=== PATIENT | female | born 1955 | race Caucasian/White ===

== ENCOUNTER → 2017-03-24 | Outpatient (REF) | payer OTHER ==
[~2017-03-24] MED LIST: ASPI325T OR; DYAZ37.5 OR; IBUPPOW25 PO; LISI20TA5 OR; LOPR50TA OR; NITR0.4S SL; PRIL40CA OR; VENL37.5 OR; VITAMIN B 12 PO; VITAMIN D PO; ZOCO40TA OR
[2017-03-24 13:04] LABS: BASO % 0.7 % (0.0-1.0); EOS # 0.5 K/mm3 (0.0-0.50); EOS % 7.8 % (0.0-3.0); LARGE UNSTAINED CELL # 0.2 K/mm3 (0.0-0.4); LARGE UNSTAINED CELL % 3.4 % (0.0-4.0); LYMPH # 1.7 K/mm3 (1.5-4.5); LYMPH % 27.3 % (24.0-44.0); MEAN CORPUSCULAR HGB CONC 31.6 g/dl (32.0-36.5); MEAN CORPUSCULAR VOLUME 91.8 fl (80.0-96.0); MONO # 0.5 K/mm3 (0.0-0.8); MONO % 7.4 % (0.0-5.0); NEUTROPHILS # 3.3 K/mm3 (1.8-7.7); NEUTROPHILS % 53.4 % (36.0-66.0); PLATELET COUNT, AUTOMATED 377 k/mm3 (150-450); RED CELL DISTRIBUTION WIDTH 12.9 % (11.5-14.5); WHITE BLOOD COUNT 6.2 K/mm3 (4.0-10.0)
[2017-03-24 13:24] LABS: ALBUMIN 3.5 GM/DL (3.2-5.2); ALBUMIN/GLOBULIN RATIO 0.97 (1.00-1.93); BILIRUBIN,TOTAL 0.4 MG/DL (0.2-1.0); CALCIUM LEVEL 8.9 MG/DL (8.8-10.2); CREATININE FOR GFR 1.28 MG/DL (0.55-1.02); GLOMERULAR FILTRATION RATE 44.7 (>45); POTASSIUM SERUM 4.2 MEQ/L (3.5-5.1); TOTAL PROTEIN 7.1 GM/DL (6.4-8.2)
== END ==
LOC: M LABDRAW1 11:45
PROVIDERS: ATTEND Family Medicine
DX: I10 Essential (primary) hypertension (principal); J44.9 Chronic obstructive pulmonary disease, unspecified; E66.09 Other obesity due to excess calories; E78.5 Hyperlipidemia, unspecified

== ENCOUNTER → 2017-05-14 | Outpatient (CLI) | payer OTHER ==
[~2017-05-14] MED LIST changes: +ASPI325T PO; +ATOR40TA75; +ATOR40TA75 PO; +CALC600T31 PO; +FAMO1TAB11 PO; +FURO40TA2 PO; +IBUP1TAB7 PO; +ISOS60TA2 PO; +LISI-538 PO; +METF-414 PO; +METF500T4; +METO50TA7 PO; +NITR0.2D TD; +NITR2OI TOP; +OMEP20CA3 PO; +VENL37.52 PO; +VITA10002 PO; +VITA10006 PO; +VITA100066 PO
--- NOTE | 2017-05-20 16:45 | SLEEPCENT ---
DATE OF PROCEDURE: 05/14/2017 REFERRING PHYSICIAN: Renuka Padgett Nocturnal polysomnography was performed for the titration of pressure therapy in this patient with a clinical diagnosis of obstructive sleep apnea syndrome confirmed by home testing, which revealed a respiratory event index of 40. For testing, the patient was fit with a ResMed AirFit T10 Nasal Pillow device of medium size, 4 cm of water pressure were applied to the circuit and the lights were extinguished. 7 hours and 49 minutes of data were reviewed. There were 322 minutes of sleep identified. Sleep latency was prolonged at 101 minutes. Rapid eye movement (REM) latency was prolonged at 180 minutes. Sleep architecture improved late in the study with optimal pressure therapy. Overall sleep efficiency was 70%. The patient's EKG showed a sinus rhythm with an average heart rate of 76 beats per minute. EEG showed fairly normal waveforms for awake and sleep. Respiratory events were best palliated with CPAP at a pressure +10. Limb activity noted early in the study persisted despite optimal pressure therapy titration. There were near continuous events with a limb movement arousal index of 12.1. IMPRESSION: Obstructive sleep apnea syndrome (G47.33). Periodic limb movement disorder (G47.61). Limb movement arousal index 12.1. RECOMMENDATION: Nightly use of pressure therapy at 10 cm of water should be sufficient to address the patient's respiratory events. Interventions to reduce the frequency of arousals from limb activity may also be helpful to optimize efficiency of sleep.
== END ==
LOC: M SLEEP 20:07
PROVIDERS: ATTEND Nurse Practitioner Adult Health
DX: G47.33 Obstructive sleep apnea (adult) (pediatric) (principal); G47.61 Periodic limb movement disorder

== ENCOUNTER 2017-06-05 13:21 | Observation (INO) | payer OTHER ==
[~2017-06-05] VITALS: Ht 167.6 cm; Wt 122.6 kg
[~2017-06-05 13:21] MED LIST changes: -ASPI325T PO; -ATOR40TA75; -ATOR40TA75 PO; -CALC600T31 PO; -FAMO1TAB11 PO; -FURO40TA2 PO; -IBUP1TAB7 PO; -ISOS60TA2 PO; -LISI-538 PO; -METF-414 PO; -METF500T4; -METO50TA7 PO; -NITR0.2D TD; -NITR2OI TOP; -OMEP20CA3 PO; -VENL37.52 PO; -VITA10002 PO; -VITA10006 PO; -VITA100066 PO
[2017-06-05] MEDS ORDERED: METF500T4 (13:31)
[2017-06-05] MEDS ORDERED: ATOR40TA75 (13:31)
[2017-06-05] MEDS ORDERED: VITA100066 PO ×2 (13:31→18:35)
[2017-06-05] MEDS ORDERED: NITR2OI TOP (13:33)
[2017-06-05] MEDS ORDERED: NITR0.2D TD ×2 (13:33→18:41)
[2017-06-05] MEDS ORDERED: NS 1,000 ML IV SCH ×2 (13:48→18:27)
[2017-06-05] MEDS ORDERED: MORPHINE 4 MG/ML 1ML SYRINGE IV ONE (14:00)
[2017-06-05] MEDS ORDERED: ONDANSETRON 4MG/2ML VIAL (J2405) IV ONE (14:00)
[2017-06-05] MEDS ORDERED: MORPHINE 2 MG/ML 1ML SYRINGE IV ONE (14:00)
[2017-06-05 14:01] LABS: BASO # 0.1 K/mm3 (0.0-0.2); EOS # 0.5 K/mm3 (0.0-0.50); EOS % 7.1 % (0.0-3.0); LARGE UNSTAINED CELL # 0.1 K/mm3 (0.0-0.4); LARGE UNSTAINED CELL % 1.7 % (0.0-4.0); LYMPH # 1.8 K/mm3 (1.5-4.5); LYMPH % 24.3 % (24.0-44.0); MEAN CORPUSCULAR HEMOGLOBIN 28.6 pg (27.0-33.0); MEAN CORPUSCULAR HGB CONC 32.4 g/dl (32.0-36.5); MEAN CORPUSCULAR VOLUME 88.5 fl (80.0-96.0); MONO # 0.4 K/mm3 (0.0-0.8); MONO % 5.9 % (0.0-5.0); NEUTROPHILS # 4.1 K/mm3 (1.8-7.7); NEUTROPHILS % 59.9 % (36.0-66.0); PLATELET COUNT, AUTOMATED 318 k/mm3 (150-450); RED CELL DISTRIBUTION WIDTH 13.4 % (11.5-14.5); WHITE BLOOD COUNT 6.8 K/mm3 (4.0-10.0)
[2017-06-05 14:07] LABS: INR 0.91
--- NOTE | 2017-06-05 14:19 | REP ---
Clinical: Chest pain . Comparison: 01/30/2013 . Findings: The mediastinum and cardiac silhouette are stable and within normal limits for portable technique. The lung lemons are clear without acute consolidation, effusion, or pneumothorax. Skeletal structures are intact. Impression: No acute cardiopulmonary process appreciated. Signed by Brendan Camara MD 06/05/2017 02:11 P
[2017-06-05 14:20] LABS: ALBUMIN 3.7 GM/DL (3.2-5.2); ALKALINE PHOSPHATASE 92 U/L (45-117); ALT/SGPT 31 U/L (12-78); ANION GAP 8 MEQ/L (8-16); AST/SGOT 21 U/L (15-37); BILIRUBIN,DIRECT 0.1 MG/DL (0.0-0.2); BILIRUBIN,TOTAL 0.5 MG/DL (0.2-1.0); BLOOD UREA NITROGEN 16 MG/DL (7-18); CALCIUM LEVEL 9.3 MG/DL (8.8-10.2); CARBON DIOXIDE LEVEL 27 MEQ/L (21-32); CHLORIDE LEVEL 106 MEQ/L (98-107); FREE T4 0.78 NG/DL (0.76-1.46); GLOMERULAR FILTRATION RATE 37.2 (>45); GLUCOSE, FASTING 158 MG/DL (80-110); POTASSIUM SERUM 3.9 MEQ/L (3.5-5.1); SODIUM LEVEL 141 MEQ/L (136-145); TOTAL PROTEIN 7.8 GM/DL (6.4-8.2)
[2017-06-05] MEDS ORDERED: ISOVUE-370 76% 100ML VIAL (Q9967) As Ordered ONE (14:49)
--- NOTE | 2017-06-05 15:32 | REP ---
Clinical: Acute chest pain. Technique: Axial contrast enhanced images from the thoracic inlet to the upper abdomen using 100 ml Isovue 370 intravenous contrast material with coronal and sagittal re-formations. Findings: Satisfactory enhancement of the pulmonary vasculature is achieved and no filling defects are identified to suggest pulmonary embolus. Thoracic aorta is normal caliber without aneurysm or dissection. Atherosclerotic changes to the thoracic aorta and coronary arteries noted. Heart and pericardium are otherwise normal. Bilateral lung lemons are well aerated and clear without acute pulmonary parenchymal consolidation or nodule/mass. Mild posterior basilar dependent changes are suggested. No pleural effusion/reaction. No pneumothorax. No adenopathy. Moderate hiatal hernia. Impression: No evidence for pulmonary embolus. Moderate hiatal hernia. No acute pleuroparenchymal or mediastinal process. Signed by Brendan Camara MD 06/05/2017 03:23 P
[2017-06-05] MEDS ORDERED: ONDANSETRON 4 MG TAB (S0181) PO PRN (18:30)
[2017-06-05] MEDS ORDERED: ACETAMINOPHEN TAB 650MG DOSE (2X325MG) PO PRN (18:30)
[2017-06-05] MEDS ORDERED: ASPI325T PO (18:35)
[2017-06-05] MEDS ORDERED: METF-414 PO (18:35)
[2017-06-05] MEDS ORDERED: ATOR40TA75 PO (18:35)
[2017-06-05] MEDS ORDERED: LISI-538 PO (18:35)
[2017-06-05] MEDS ORDERED: VENL37.52 PO (18:41)
[2017-06-05] MEDS ORDERED: FAMO1TAB11 PO (18:41)
[2017-06-05] MEDS ORDERED: VITA10002 PO (18:41)
[2017-06-05] MEDS ORDERED: IBUP1TAB7 PO (18:41)
[2017-06-05] MEDS ORDERED: FURO40TA2 PO (18:41)
[2017-06-05] MEDS ORDERED: ISOS60TA2 PO (18:41)
[2017-06-05] MEDS ORDERED: OMEP20CA3 PO (18:41)
[2017-06-05] MEDS ORDERED: CALC600T31 PO (18:41)
[2017-06-05] MEDS ORDERED: VITA10006 PO (18:41)
[2017-06-05] MEDS ORDERED: METO50TA7 PO (18:41)
[2017-06-05] MEDS ORDERED: GLUCAGON FOR INJ 1 MG VIAL (J1610) SC PRN (19:00)
[2017-06-05] MEDS ORDERED: NITROGLYCERIN 0.2 MG/HR PATCH TD PRN (19:00)
[2017-06-05] MEDS ORDERED: GLUCOSE 4 GM CHEW TABLET PO PRN (19:00)
[2017-06-05] MEDS ORDERED: DEXTROSE 50% 50 ML SYRINGE IV PRN (19:00)
--- NOTE | 2017-06-05 19:42 | ECGEPIP ---
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
--- NOTE | 2017-06-05 19:44 | ECGEPIP ---
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
--- NOTE | 2017-06-05 19:45 | HPEPDOC ---
General Date of Admission 06/05/17 Primary Care Physician: NAYE MIMS DO Attending Physician: NIRMALA MEDELLIN DO Chief Complaint The patient is a 62-year-old female admitted with a reason for visit of Chest Pain. History of Present Illness 62-year-old female brought into ED by [id number] after experiencing chest pain, nausea, and diaphoresis at 10 AM this morning. Jediea-[id number]-stp also present in room. PMH significant for CAD with 8 stents placed in 2011, HTN, HLD, questionable CHF, JESSE. Patient states she was walking, shopping at the time, and suddenly felt achy pain and pressure in the middle of her chest radiating to her left shoulder, rated 7/10. Patient took 1 nitroglycerin patch, and continued shopping. After eating around 11:30 AM, pain returned and patient applied a second nitroglycerin patch. Patient states this is similar episode to what she had in the past around 2011 when she was required to have stents placed. Patient describes current pain as intermittent, on and off in 15-minute intervals. No aggravating or alleviating factors besides nitroglycerin, and morphine given in the ED. Patient denies any recent travel, sick contacts, or changes in lifestyle. Patient recently started new diabetes medication last week -she is unsure of the name. Cardiac workup in the ED was negative based on EKG and cardiac markers. Hospitalist team was consulted because patient became short of breath, dizzy, and hypotensive (~90s/50s) while walking from bed to the bathroom. Patient recently took off her nitroglycerin patches and is no longer dizzy, lightheaded , or hypotensive. Home Medications Scheduled Ascorbic Acid (Vitamin C) 1,000 Mg Tab, 1,000 MG PO DAILY, (Reported) Aspirin (Aspirin) 325 Mg Tab, 325 MG PO DAILY, (Reported) Atorvastatin Calcium (Atorvastatin Calcium) 40 Mg Tab, 40 MG PO QHS, (Reported) Calcium (Calcium) 600 Mg Tab, 600 MG PO DAILY, (Reported) Cholecalciferol (Vitamin D) 1,000 Unit Tab, 1,000 UNIT PO BID, (Reported) Cyanocobalamin (Vitamin B-12) 1,000 Mcg Tab, 1,000 MCG PO DAILY, (Reported) Famotidine (Famotidine) 20 Mg Tab, 20 MG PO TID, (Reported) Isosorbide Mononitrate (Isosorbide Mononitrate ER) 60 Mg Tab, 60 MG PO DAILY, ( Reported) Metoprolol Tartrate (Metoprolol Tartrate) 50 Mg Tab, 50 MG PO BID, (Reported) Omeprazole (Omeprazole) 20 Mg Cap, 40 MG PO BID, (Reported) Venlafaxine HCl (Venlafaxine HCl ER) 37.5 Mg Cap, 75 MG PO BID, (Reported) Scheduled PRN Ibuprofen (Ibuprofen) 800 Mg Tab, 800 MG PO TID PRN for PAIN, (Reported) Allergies Coded Allergies: No Known Allergies (Verified , 05/29/12) Past Medical History Medical History Coronary artery disease-8 stents 2011 Diabetes Hypertension Dyslipidemia Questionable CHF Hiatal hernia GERD JESSE, recently diagnosed Surgical History 8 stents, 2011 Appendectomy at age 14 Arthroscopy left knee Family History Father: Diabetes, CAD, oral cancer from chewing tobacco Mother: Parkinson's Brother: Brain cancer Brother: Testicular cancer Sister: Lung cancer Cousins: Muscular dystrophy Paternal uncle: AAA Maternal aunt: Diabetes Social History Smoking: Quit 6 years ago, smoked for 32 years, 1 ppd Alcohol: Seldom Substances: Denies Lives at home with 4 dogs. 2 yrs Worked as [employer], retired 2011 Review of Symptoms Constitutional: Denies: Chills, Fever, Night Sweats, Fatigue, Weight Loss Eyes: Denies: Pain, Vision change ENT: Reports: Head Aches, Denies: Dysphagia Pulmonary: Reports: Dyspnea, Denies: Cough Cardiovascular: Reports: Chest Pain (mid chest, radiating to left shoulder. Intermittent pain in 10-15 min intervals.), Lt Headedness, Denies: Palpitations, Edema Gastrointestinal: Reports: Nausea, Denies: Vomiting, Abdominal Pain, Diarrhea, Constipation Musculoskeletal: Reports: Shoulder Pain Neurological: Denies: Weakness, Numbness, Incoordination, Change in speech, Confusion Psych: Reports: Mood Normal Physical Examination General Exam: Positive: Alert, Cooperative, No Acute Distress Eye Exam: Positive: PERRLA, Conjunctiva & lids normal, EOMI, Negative: Sclera icteric ENT Exam: Positive: Atraumatic, Mucous membr. moist/pink, Pharynx Normal, Tongue Midline Neck Exam: Positive: Supple, +2 carotid pulse wo bruit, Negative: JVD, Lymphadenopathy Chest Exam: Positive: Clear to auscultation, Normal air movement, Negative: Wheezing Heart Exam: Positive: Rate Normal, Regular Rhythm, Other (difficult to asses heart sounds due to body habitus) Abdomen Exam: Positive: Normal bowel sounds, Soft, Negative: Tenderness Extremity Exam: Positive: Normal pulses, Negative: Clubbing, Cyanosis, Edema, Tenderness, Swelling Skin Exam: Positive: Nl turgor and temperature Neuro Exam: Positive: Normal Speech, Normal Tone, Sensation Intact Psych Exam: Positive: Mental status NL, Mood NL, Memory Intact, Oriented x 3 Vital Signs Vital Signs Date Time Temp Pulse Resp B/P (MAP) Pulse Ox O2 Delivery O2 Flow Rate FiO2 06/05/17 18:15 117/57 (77) 06/05/17 18:01 85 94 06/05/17 16:46 16 06/05/17 13:22 97.3 Room Air Height (in): 66 Weight (kg): 119 BMI (kg): 42.4 Laboratory Data Labs 24H Laboratory Tests 2 06/05/17 13:50: White Blood Count 6.8, Red Blood Count 4.94, Hemoglobin 14.2, Hematocrit 43.7, Mean Corpuscular Volume 88.5, Mean Corpuscular Hemoglobin 28.6, Mean Corpuscular Hemoglobin Concent 32.4, Red Cell Distribution Width 13.4, Platelet Count 318, Neutrophils (%) (Auto) 59.9, Lymphocytes (%) (Auto) 24.3, Monocytes ( %) (Auto) 5.9H, Eosinophils (%) (Auto) 7.1H, Basophils (%) (Auto) 1.0, Neutrophils # (Auto) 4.1, Lymphocytes # (Auto) 1.8, Monocytes # (Auto) 0.4, Eosinophils # (Auto) 0.5, Basophils # (Auto) 0.1, Large Unclassified Cells % 1.7 , Large Unclassified Cells # 0.1, Prothrombin Time 12.3L, Prothromb Time International Ratio 0.91, Activated Partial Thromboplast Time 22.1L, Anion Gap 8 , Glomerular Filtration Rate 37.2L, Calcium Level 9.3, Aspartate Amino Transf ( AST/SGOT) 21, Alanine Aminotransferase (ALT/SGPT) 31, Alkaline Phosphatase 92, Total Bilirubin 0.5, Direct Bilirubin 0.1, Total Creatine Kinase 189, Creatine Kinase MB 2.8, Creatine Kinase MB Relative Index 1.48, Troponin I < 0.02, B- Type Natriuretic Peptide 22.9, Total Protein 7.8, Albumin 3.7, Albumin/Globulin Ratio 0.90L, Lipase 153, Thyroid Stimulating Hormone (TSH) 2.130, Free Thyroxine 0.78 06/05/17 15:59: Total Creatine Kinase 185, Creatine Kinase MB 2.2, Creatine Kinase MB Relative Index 1.18, Troponin I < 0.02 CBC/BMP Laboratory Tests 06/05/17 13:50 Red Blood Count 4.94, Mean Corpuscular Volume 88.5, Mean Corpuscular Hemoglobin 28.6, Mean Corpuscular Hemoglobin Concent 32.4, Red Cell Distribution Width 13.4 , Neutrophils (%) (Auto) 59.9, Lymphocytes (%) (Auto) 24.3, Monocytes (%) (Auto ) 5.9 H, Eosinophils (%) (Auto) 7.1 H, Basophils (%) (Auto) 1.0, Neutrophils # ( Auto) 4.1, Lymphocytes # (Auto) 1.8, Monocytes # (Auto) 0.4, Eosinophils # (Auto ) 0.5, Basophils # (Auto) 0.1 Assessment/Plan Chest Pain -MSK vs GERD vs PE vs TN -in ED: CXR neg for cardiopulmonary etiology. CT angiogram neg for PE. 2 EKGs non-concerning -echocardiogram. Last done in 2011 -serial cardiac enzymes -continue ASA, statin, BBlocker, Nitro -case discussed with Dr. Urbina CKD with mildly increased Creatinine -urinalysis, urine electrolytes -renal US -pt home meds on hold: Metformin, Furosemide, Lasix. Pt ingested contrast for imaging while in ED -1L fluids only. Avoid fluid overload Questionable history of CHF -strict I's/O's -daily weight Orthostatic Hypotension -gentle IV hydration -hold Lisinopril and Lasix -check orthostatic vitals q8h Diabetes -check A1C -Insulin Sliding Scale. Hold Metformin due to kidney injury. Dyslipidemia -lipid panel -continue home statin JESSE -JESSE Protocol GERD -continue home Pepcid, Prilosec DVT prophylaxis -SCD/CITLALY, and Heparin Dispo: admit for observation to Dr. Medellin's service Plan / VTE VTE Prophylaxis Ordered?: Yes GME ATTESTATION GME ATTESTATION My preceptor for this patient encounter was physically present in the building during the encounter and was fully available. As needed, all aspects of the patient interview, examination, medical decision making process, and medical care plan development were reviewed and approved by the preceptor. Preceptor is aware and concurs with the plan as stated in the body of this note and will attest to such by his/her cosignature. ATTENDING NOTE I have both independently examined this patient as well as reviewed the H&P. I have discussed in detail with the resident the findings and plan of treatment as documented in the residents note. I will continue to follow the patient and offer further guidance to the patients care as necessary during this hospital stay. KIRA Alfaro MD, DO Jun 05, 2017 19:44 MANINDER CHAVARRIA MD Jun 12, 2017 08:50
[2017-06-05] MEDS ORDERED: HumaLOG INSULIN (NovoLOG) PER UNIT SC SCH (21:00)
[2017-06-05] MEDS ORDERED: ATORVASTATIN 20 MG TAB PO SCH (21:00)
[2017-06-05 21:50] VITALS: BP 134/86
[2017-06-05] MEDS: FAMOTIDINE 20 MG TAB PO SCH (22:41)
[2017-06-05] MEDS: SENOKOT S TAB PO SCH (22:41)
[2017-06-05] MEDS: METOPROLOL TART 50 MG TAB PO SCH (22:41)
[2017-06-05] MEDS: OMEPRAZOLE 20 MG CAP PO SCH (22:41)
[2017-06-05] MEDS: VITAMIN D 1,000 INTERNATIONAL UNITS TABLET PO SCH (22:42)
[2017-06-05] MEDS: HEPARIN SOD (PORCINE) 5000 UNITS/ML VIAL SC SCH (22:42)
[2017-06-05] MEDS: VENLAFAXINE **XR** 37.5 MG CAPSULE PO SCH (23:15)
[2017-06-06 00:30] VITALS: BP 119/74
[2017-06-06 04:18] VITALS: BP_SYST 112; BP_SYST 132; BP_SYST 134; BP_DIAS 58; BP_DIAS 60; BP_DIAS 65
[2017-06-06 05:23] LABS: MEAN CORPUSCULAR HEMOGLOBIN 28.8 pg (27.0-33.0); MEAN CORPUSCULAR HGB CONC 32.4 g/dl (32.0-36.5); RED CELL DISTRIBUTION WIDTH 13.5 % (11.5-14.5)
[2017-06-06 05:44] LABS: ALBUMIN 3.1 GM/DL (3.2-5.2); ALBUMIN/GLOBULIN RATIO 0.86 (1.00-1.93); BILIRUBIN,TOTAL 0.2 MG/DL (0.2-1.0); CALCIUM LEVEL 8.7 MG/DL (8.8-10.2); CREATININE FOR GFR 1.29 MG/DL (0.55-1.02); GLOMERULAR FILTRATION RATE 44.3 (>45); POTASSIUM SERUM 4.1 MEQ/L (3.5-5.1); TOTAL PROTEIN 6.7 GM/DL (6.4-8.2)
[2017-06-06] MEDS ORDERED: HumaLOG INSULIN (NovoLOG) PER UNIT SC SCH (07:30)
[2017-06-06 08:00] VITALS: BP 116/64
[2017-06-06] MEDS: METOPROLOL TART 50 MG TAB PO SCH (08:38)
[2017-06-06] MEDS: VENLAFAXINE **XR** 37.5 MG CAPSULE PO SCH (08:38)
[2017-06-06 08:39] VITALS: BP 116/64
[2017-06-06] MEDS: OMEPRAZOLE 20 MG CAP PO SCH (08:39)
[2017-06-06] MEDS: VITAMIN D 1,000 INTERNATIONAL UNITS TABLET PO SCH (08:39)
[2017-06-06] MEDS: FAMOTIDINE 20 MG TAB PO SCH (08:39)
[2017-06-06] MEDS: HEPARIN SOD (PORCINE) 5000 UNITS/ML VIAL SC SCH (08:40)
[2017-06-06] MEDS: SENOKOT S TAB PO SCH (08:40)
[2017-06-06] MEDS ORDERED: ASPIRIN 325 MG TAB PO SCH (09:00)
[2017-06-06] MEDS ORDERED: CYANOCOBALAMIN 500 MCG TAB PO SCH (09:00)
[2017-06-06] MEDS ORDERED: ISOSORBIDE MON. (IMDUR) 60 MG XR TAB PO SCH (09:00)
[2017-06-06] MEDS ORDERED: ASCORBIC ACID 500 MG TAB PO SCH (09:00)
--- NOTE | 2017-06-06 10:25 | REP ---
Clinical: Acute renal insufficiency. Technique: Real time melchor scale and color evaluation using curved array transducer. Findings: The bilateral kidneys are normal in reniform shape and demonstrate age-related changes including cortical thinning and increased parenchymal echogenicity without hydronephrosis or obvious renal mass lesion. Bilateral renovascular calcifications are identified. Right kidney measures 11.7 x 5.4 x 4.2 cm and includes 1.5 cm mid pole cyst. Left kidney measures 11.6 x 5.5 x 5.2 cm. The bladder is incompletely distended and evaluated. Incidental note of cholelithiasis appreciated. Impression: 1. Age-related changes of the bilateral kidneys without hydronephrosis. 1.5 cm right renal cyst. 2. Cholelithiasis. Signed by Brendan Camara MD 06/06/2017 10:17 A
--- NOTE | 2017-06-06 15:27 | DSES ---
DATE OF ADMISSION: 06/05/2017 DATE OF DISCHARGE: 06/06/2017 PRIMARY CARE PROVIDER: Zoe Sawant DO CONSULTANTS: None. PROCEDURES: None. COMPLICATIONS: None. DISCHARGE DIAGNOSES: 1. Chest pain. 2. Hypotension secondary to multiple nitroglycerin patch use. 3. Chronic kidney disease. 4. History of congestive heart failure. 5. Orthostatic hypotension. 6. Diabetes. 7. Dyslipidemia. 8. Obstructive sleep apnea. 9. Gastroesophageal reflux disease (GERD). 10. Coronary artery disease status post eight cardiac stents in 2011. HOSPITALIZATION COURSE: The patient is a 62-year-old female who presented to [facility] on 06/05/2017, with chest pain. After multiple increased exertion, patient was found to have chest pain, and patient used two patches of nitroglycerin at different times and later patient still had persistent chest pain and patient came to [facility] for further evaluation. At the time of admission, patient was found to have soft blood pressures and nitroglycerin patch was removed. EKG was performed. Cardiac troponin was also obtained and the case was discussed with global risk management director, Dr. Urbina, and recommended overnight observation. Later, there is no abnormality found on the EKG. Troponin later came back negative. Patient is recommended not to use the 3 year old nitroglycerin patch and that patient should reestablish with a global risk management director service. Patient is recommended to followup with primary care provider in 1 week. Patient came in with acute kidney injury and renal function is improving but her renal function is not back to baseline. Patient's medication was adjusted and recommend holding multiple medications and restarting after the primary care provider appointment. Before patient is discharged from [facility], echocardiogram was performed and renal ultrasound was performed and patient is cleared by physical therapy before discharge. OBJECTIVE: VITAL SIGNS: Temperature 97.6, pulse 84, respirations 18, blood pressure 116/64, pulse oximetry 96% in room air. LABORATORY DATA: WBC 6, hemoglobin 12.4, hematocrit 38.4, platelet count 264. Sodium 141, potassium 3.9, chloride 106, carbon dioxide 27, BUN 16, creatinine 1.5, GFR 37.2, fasting glucose 158, calcium 9.3, total bilirubin 0.5, direct bilirubin 0.1, AST 21, ALT 31, alkaline phosphatase 92, total CK 189, troponin I is less than 0.02 times three sets. BNP is 22.9, total protein 7.8, albumin 3.7, lipase 153, TSH 2.13, free T4 0.78. PT is 12.3, INR is 0.91. Urinalysis is negative. IMAGING STUDIES: Chest x-ray showed no acute cardiopulmonary process. CT angiogram showed no evidence of pulmonary embolus (PE), moderate hiatal hernia, no acute pleural parenchymal or mediastinal process. Renal ultrasound showed age-related changes of bilateral kidneys without hydronephrosis, 1.5 cm right renal cyst, cholelithiasis. DISCHARGE MEDICATIONS: - vitamin C 1000 mg by mouth daily - aspirin 325 mg by mouth daily - atorvastatin 40 mg by mouth nightly - calcium 600 mg by mouth daily - vitamin D 1000 units by mouth twice a day - vitamin B12 1000 mcg by mouth daily - famotidine 20 mg by mouth three times a day - ibuprofen 800 mg by mouth three times a day as needed - isosorbide mononitrate 60 mg by mouth daily - metoprolol tartrate 50 mg by mouth twice a day - omeprazole 40 mg by mouth twice a day - venlafaxine 75 mg by mouth twice a day The following medications are on hold and they should be reelevated by the primary care provider or global risk management director: - Lasix 40 mg by mouth daily - lisinopril 20 mg by mouth twice a day - metformin 1000 mg by mouth nightly - nitroglycerin 0.2 mg patch daily as needed DISCHARGE INSTRUCTIONS: Discontinue lines. Discharge home. Low salt consistent carbohydrate diet as tolerated. Patient should followup with primary care provider, Dr. Zoe Sawant, in 1 week. It is recommended patient reestablish with a global risk management director. Patient was discharged from the previous global risk management director due to frequent no shows. However, due to patient's significant cardiac history, patient will benefit to have routine cardiology followup. Patient still has medication of nitroglycerin supply from 3 years ago and discussed with patient that it is not safe to use those medications without supervision and it is not recommended to use possible medications. DISCHARGE CONDITION: Stable. DISCHARGE TIME: Greater than 30 minutes.
--- NOTE | 2017-06-07 07:39 | ECHO ---
DATE OF PROCEDURE: 06/06/2017 DATE OF : 1955 AGE: 62 GENDER: Female HEIGHT: 66 inches WEIGHT: 262 pounds BODY SURFACE AREA: 2.24 meters squared INPATIENT: U, Room 3220 REFERRING PHYSICIAN: Dr. Rome INDICATION: Chest pain. History of coronary artery disease post percutaneous transluminal coronary angioplasty (PTCA). MEASUREMENTS 2D measurements: RV: 3.0 cm LV: 4.3 cm Septum: 1.1 cm Posterior wall: 1.0 cm Aortic root: 2.7 cm LA: 3.8 cm LVEF: 65% Doppler measurements: AV: 2.01 meters per second LVOT: 1.6 meters per second MV-E: 120, A: 140, EA ratio: 0.9 Early mitral deceleration time: 313 milliseconds E prime: 7.4, A prime: 8.7, E/E prime ratio: 16.2 PV: 1.2 meters per second Pulmonary artery acceleration time: 126 milliseconds RVSP: 32 mmHg IVC: 1.8 cm COMMENTS: Normal sinus rhythm without intraventricular conduction disturbance. Technically challenging in light of the patient's body habitus but diagnostically useful information was still obtained. Left atrial size was upper limits of normal to mildly dilated. Normal left ventricular size. Right heart chamber sizes were also normal. LV wall thickness was normal. On real-time imaging from the parasternal and apical projections, wall motion was symmetrical and normal to hyperkinetic. Marginally thickened mitral annulus but normal leaflet thickness and excursion with no posterior systolic buckling. Three equal size aortic cusps with marginally thickened cusp edges but adequate cusp separation. Normal aortic root size. No apparent intracardiac mass or pericardial effusion. Color flow Doppler study taken from the parasternal and apical projection showed trace mitral and very mild tricuspid but no aortic insufficiency. Guided continuous wave Doppler of her aortic valve showed a borderline increased peak systolic velocity. However, pulsed Doppler of her LV outflow tract also showed an increased peak velocity in keeping with a "hyperdynamic" left ventricle and increased stroke volume rather than LV outflow tract obstruction. Pulsed and continuous wave Doppler of her LV inflow tract taken from the apical four-chamber projection showed normal diastolic filling velocities against mitral stenosis. There was more prominent late diastolic/atrial dependent filling pattern. A degree of LV diastolic dysfunction was further confirmed by prolonged early mitral deceleration time and tissue Doppler of her mitral annulus. Current estimated mean left atrial pressure was slightly increased. Pulsed and continuous wave Doppler of her pulmonary trunk showed a normal peak systolic velocity against RV outflow tract obstruction. Her pulmonary artery acceleration time was normal against an elevated pulmonary vascular resistance. Guided continuous wave Doppler of her tricuspid valve allowed our further estimation of her right ventricular systolic pressure (upper limits of normal to borderline increased). Her inferior vena cava was of normal size with normal respiratory collapse against right heart failure. CONCLUSIONS: Unable to detect a structural or functional abnormality to account for the patient's chest pain. Normal left ventricular size, wall thickness and hyperkinetic wall motion. Borderline left atrial enlargement with Doppler evidence of an impairment of left ventricular (LV) diastolic relaxation and slightly elevated mean left atrial pressure. Normal right heart chamber sizes with normal right ventricular wall motion and Doppler evidence of borderline pulmonary retention. Normal inferior vena cava (IVC) size and collapse against right heart failure. Subtle degenerative changes of her mitral and aortic valvular apparatus without functional valvular abnormality.
== END 2017-06-06 11:32 | disposition home or self-care (01) ==
LOC: M ED 13:21 → M ED INP 19:00 → M PCU 21:42
PROVIDERS: ADMIT Internal Medicine; ATTEND Internal Medicine
DX: R07.9 Chest pain, unspecified (principal); I95.2 Hypotension due to drugs; N18.9 Chronic kidney disease, unspecified; Z86.79 Personal history of other diseases of the circulatory system; I95.1 Orthostatic hypotension; E11.9 Type 2 diabetes mellitus without complications; E78.5 Hyperlipidemia, unspecified; G47.33 Obstructive sleep apnea (adult) (pediatric); K21.9 Gastro-esophageal reflux disease without esophagitis; I25.10 Atherosclerotic heart disease of native coronary artery without angina pectoris; Z95.5 Presence of coronary angioplasty implant and graft; N17.9 Acute kidney failure, unspecified; R06.02 Shortness of breath; R42 Dizziness and giddiness; K44.9 Diaphragmatic hernia without obstruction or gangrene; I12.9 Hypertensive chronic kidney disease with stage 1 through stage 4 chronic kidney disease, or unspecified chronic kidney disease; Z79.899 Other long term (current) drug therapy; Z79.84 Long term (current) use of oral hypoglycemic drugs; Z79.82 Long term (current) use of aspirin; Z87.891 Personal history of nicotine dependence
CPT/HCPCS: 36415; 71010; 71275; 76775; 80048; 80053; 80061; 80076; 81001; 82436; 82550; 82553; 82570; 83036; 83605; 83690; 83735; 83880; 83935; 84133; 84156; 84300; 84439; 84443; 85025; 85027; 85610; 85730; 93005; 93041; 93306; 94760; 96361; 96372; 96374; 96375; 97161; 99285; J2405; Q9967

== ENCOUNTER → 2017-06-15 | Outpatient (REF) | payer OTHER ==
[~2017-06-15] MED LIST changes: +ASPI325T PO; +ATOR40TA75; +ATOR40TA75 PO; +CALC600T31 PO; +FAMO1TAB11 PO; +FURO40TA2 PO; +IBUP1TAB7 PO; +ISOS60TA2 PO; +LISI-538 PO; +METF-414 PO; +METF500T4; +METO50TA7 PO; +NITR0.2D TD; +NITR2OI TOP; +OMEP20CA3 PO; +VENL37.52 PO; +VITA10002 PO; +VITA10006 PO; +VITA100066 PO
[2017-06-15 12:45] LABS: CALCIUM LEVEL 9.4 MG/DL (8.8-10.2); CREATININE FOR GFR 1.12 MG/DL (0.55-1.02); GLOMERULAR FILTRATION RATE 52.1 (>45); POTASSIUM SERUM 4.6 MEQ/L (3.5-5.1)
== END ==
LOC: M LABDRAW1 10:07
PROVIDERS: ATTEND Family Medicine
DX: N17.8 Other acute kidney failure (principal); E11.9 Type 2 diabetes mellitus without complications

== ENCOUNTER → 2017-07-15 | Outpatient (REF) | payer OTHER ==
[2017-07-15 12:53] LABS: CALCIUM LEVEL 9.1 MG/DL (8.8-10.2); CREATININE FOR GFR 1.08 MG/DL (0.55-1.02); GLOMERULAR FILTRATION RATE 54.4 (>45); POTASSIUM SERUM 4.1 MEQ/L (3.5-5.1)
== END ==
LOC: M LABDRAW1 10:51
PROVIDERS: ATTEND Family Medicine
DX: E11.9 Type 2 diabetes mellitus without complications (principal); E78.5 Hyperlipidemia, unspecified

== ENCOUNTER → 2017-08-24 | Outpatient (CLI) | payer OTHER ==
[2017-08-24 12:09] LABS: ALBUMIN 3.6 GM/DL (3.2-5.2); ALBUMIN/GLOBULIN RATIO 1.13 (1.00-1.93); ALKALINE PHOSPHATASE 108 U/L (45-117); ALT/SGPT 32 U/L (12-78); ANION GAP 6 MEQ/L (8-16); AST/SGOT 16 U/L (7-37); BILIRUBIN,TOTAL 0.4 MG/DL (0.2-1.0); BLOOD UREA NITROGEN 16 MG/DL (7-18); CARBON DIOXIDE LEVEL 27 MEQ/L (21-32); CHLORIDE LEVEL 109 MEQ/L (98-107); CHOLESTEROL LEVEL 143 MG/DL (<200); CREATININE FOR GFR 0.96 MG/DL (0.55-1.02); GLOMERULAR FILTRATION RATE > 60.0 (>45); GLUCOSE, FASTING 103 MG/DL (80-110); SODIUM LEVEL 142 MEQ/L (136-145); TOTAL PROTEIN 6.8 GM/DL (6.4-8.2); TRIGLYCERIDES LEVEL 108 MG/DL (<150)
== END ==
LOC: M LABDRAW1 10:20
PROVIDERS: ATTEND Internal Medicine Cardiovascular Disease
DX: I25.118 Atherosclerotic heart disease of native coronary artery with other forms of angina pectoris (principal); I11.9 Hypertensive heart disease without heart failure; Z68.41 Body mass index [BMI] 40.0-44.9, adult

== ENCOUNTER → 2017-10-19 | Outpatient (REF) | payer OTHER ==
[2017-10-19 11:58] LABS: ALBUMIN 3.7 GM/DL (3.2-5.2); ALBUMIN/GLOBULIN RATIO 1.03 (1.00-1.93); ALKALINE PHOSPHATASE 109 U/L (45-117); ALT/SGPT 25 U/L (12-78); ANION GAP 8 MEQ/L (8-16); AST/SGOT 16 U/L (7-37); BILIRUBIN,TOTAL 0.5 MG/DL (0.2-1.0); BLOOD UREA NITROGEN 17 MG/DL (7-18); CALCIUM LEVEL 9.1 MG/DL (8.8-10.2); CARBON DIOXIDE LEVEL 28 MEQ/L (21-32); CHLORIDE LEVEL 107 MEQ/L (98-107); CREATININE FOR GFR 1.05 MG/DL (0.55-1.02); GLOMERULAR FILTRATION RATE 56.2 (>45); GLUCOSE, FASTING 94 MG/DL (80-110); POTASSIUM SERUM 4.2 MEQ/L (3.5-5.1); SODIUM LEVEL 143 MEQ/L (136-145); TOTAL PROTEIN 7.3 GM/DL (6.4-8.2)
[2017-10-19 13:28] LABS: ESTIMATED AVERAGE GLUCOSE 134 MG/DL (60-110); HEMOGLOBIN A1c 6.3 %
== END ==
LOC: M LABDRAW1 10:44
DX: E11.9 Type 2 diabetes mellitus without complications (principal); I10 Essential (primary) hypertension

== ENCOUNTER → 2018-01-14 | Outpatient (CLI) | payer OTHER ==
[2018-01-14 13:06] LABS: ALBUMIN 3.8 GM/DL (3.2-5.2); ALBUMIN/GLOBULIN RATIO 1.03 (1.00-1.93); ALKALINE PHOSPHATASE 134 U/L (45-117); ALT/SGPT 27 U/L (12-78); ANION GAP 7 MEQ/L (8-16); AST/SGOT 17 U/L (7-37); BILIRUBIN,TOTAL 0.5 MG/DL (0.2-1.0); BLOOD UREA NITROGEN 15 MG/DL (7-18); CALCIUM LEVEL 8.9 MG/DL (8.8-10.2); CARBON DIOXIDE LEVEL 28 MEQ/L (21-32); CHLORIDE LEVEL 109 MEQ/L (98-107); CHOLESTEROL LEVEL 133 MG/DL (<200); CHOLESTEROL RISK RATIO 3.022 (<5); CREATININE FOR GFR 0.97 MG/DL (0.55-1.30); GLOMERULAR FILTRATION RATE > 60.0 (>45); GLUCOSE, FASTING 93 MG/DL (70-100); HDL CHOLESTEROL 44 MG/DL (>40); LDL CHOLESTEROL 65.6 MG/DL (<100); MAGNESIUM LEVEL 2.4 MG/DL (1.8-2.4); NON-HDL-C 89 MG/DL; POTASSIUM SERUM 4.3 MEQ/L (3.5-5.1); SODIUM LEVEL 144 MEQ/L (136-145); THYROID STIMULATING HORMONE 0.968 uIU/ML (0.358-3.740); TOTAL PROTEIN 7.5 GM/DL (6.4-8.2); TRIGLYCERIDES LEVEL 117 MG/DL (<150); URIC ACID 3.7 MG/DL (2.6-6.0)
[2018-01-14 18:42] LABS: MALB URINE SIEMENS 19.3 MG/L; MAU/CREAT RATIO 7.3 MCG/MG (0.0-30.0)
== END ==
LOC: M WUC 09:55
DX: E11.9 Type 2 diabetes mellitus without complications (principal); E78.5 Hyperlipidemia, unspecified; I12.9 Hypertensive chronic kidney disease with stage 1 through stage 4 chronic kidney disease, or unspecified chronic kidney disease; N18.9 Chronic kidney disease, unspecified
CPT/HCPCS: 83735

== ENCOUNTER → 2018-04-14 | Outpatient (CLI) | payer MEDICARE ==
[2018-04-14 13:57] LABS: ESTIMATED AVERAGE GLUCOSE 131 MG/DL (60-110); HEMOGLOBIN A1c 6.2 %
[2018-04-14 14:27] LABS: ALBUMIN 3.7 GM/DL (3.2-5.2); ALKALINE PHOSPHATASE 133 U/L (45-117); ALT/SGPT 32 U/L (12-78); ANION GAP 9 MEQ/L (8-16); AST/SGOT 18 U/L (7-37); BILIRUBIN,TOTAL 0.4 MG/DL (0.2-1.0); BLOOD UREA NITROGEN 15 MG/DL (7-18); CALCIUM LEVEL 8.9 MG/DL (8.8-10.2); CARBON DIOXIDE LEVEL 26 MEQ/L (21-32); CHLORIDE LEVEL 109 MEQ/L (98-107); CREATININE FOR GFR 0.91 MG/DL (0.55-1.30); GLOMERULAR FILTRATION RATE > 60.0 (>45); GLUCOSE, FASTING 78 MG/DL (70-100); POTASSIUM SERUM 3.9 MEQ/L (3.5-5.1); SODIUM LEVEL 144 MEQ/L (136-145); TOTAL PROTEIN 7.4 GM/DL (6.4-8.2)
== END ==
LOC: M WUC 10:13
DX: E11.9 Type 2 diabetes mellitus without complications (principal)
CPT/HCPCS: 80053

== ENCOUNTER → 2018-07-18 | Outpatient (CLI) | payer MEDICARE, OTHER ==
[2018-07-18 15:26] LABS: ALBUMIN/GLOBULIN RATIO 1.08 (1.00-1.93); ALKALINE PHOSPHATASE 120 U/L (45-117); ALT/SGPT 31 U/L (12-78); ANION GAP 8 MEQ/L (8-16); AST/SGOT 21 U/L (7-37); BILIRUBIN,TOTAL 0.4 MG/DL (0.2-1.0); BLOOD UREA NITROGEN 16 MG/DL (7-18); CALCIUM LEVEL 9.3 MG/DL (8.8-10.2); CARBON DIOXIDE LEVEL 28 MEQ/L (21-32); CHLORIDE LEVEL 108 MEQ/L (98-107); CREATININE FOR GFR 1.02 MG/DL (0.55-1.30); GLOMERULAR FILTRATION RATE 57.9 (>45); GLUCOSE, FASTING 121 MG/DL (70-100); POTASSIUM SERUM 4.4 MEQ/L (3.5-5.1); SODIUM LEVEL 144 MEQ/L (136-145); TOTAL PROTEIN 7.7 GM/DL (6.4-8.2)
== END ==
LOC: M WUC 12:31
DX: I50.32 Chronic diastolic (congestive) heart failure (principal); R94.31 Abnormal electrocardiogram [ECG] [EKG]; E11.9 Type 2 diabetes mellitus without complications
CPT/HCPCS: 80053

== ENCOUNTER → 2018-07-18 | Outpatient (CLI) | payer MEDICARE, OTHER ==
[2018-07-18 15:22] LABS: ESTIMATED AVERAGE GLUCOSE 123 MG/DL (60-110); HEMOGLOBIN A1c 5.9 %
== END ==
LOC: M WUC 12:34
DX: E11.9 Type 2 diabetes mellitus without complications (principal)

== ENCOUNTER → 2018-10-31 | Outpatient (CLI) | payer MEDICARE, OTHER ==
[~2018-10-31] MED LIST changes: -NITR0.2D TD; +[UNRECOGNIZED DRUG - CODE] TD
[2018-10-31 12:42] LABS: BASO # 0.1 10^3/uL (0.0-0.2); BASO % 1.1 % (0.0-1.0); EOS # 0.8 10^3/uL (0.0-0.50); EOS % 10.1 % (0.0-3.0); HEMATOCRIT 43.7 % (36.0-47.0); HEMOGLOBIN 13.8 g/dl (12.0-15.5); LYMPH # 2.6 10^3/uL (1.5-4.5); LYMPH % 34.5 % (24.0-44.0); MEAN CORPUSCULAR HEMOGLOBIN 29.3 pg (27.0-33.0); MEAN CORPUSCULAR HGB CONC 31.6 g/dl (32.0-36.5); MEAN CORPUSCULAR VOLUME 92.8 fl (80.0-96.0); MONO # 0.7 10^3/uL (0.0-0.8); MONO % 9.6 % (0.0-5.0); NEUTROPHILS # 3.3 10^3/uL (1.8-7.7); NEUTROPHILS % 44.4 % (36.0-66.0); PLATELET COUNT, AUTOMATED 383 10^3/uL (150-450); RED BLOOD COUNT 4.71 10^6/uL (4.00-5.40); WHITE BLOOD COUNT 7.5 10^3/uL (4.0-10.0)
[2018-10-31 13:08] LABS: MALB URINE SIEMENS 20.2 MG/L; MAU/CREAT RATIO 12.6 MCG/MG (0.0-30.0)
[2018-10-31 13:12] LABS: ALBUMIN 4.1 GM/DL (3.2-5.2); BILIRUBIN,TOTAL 0.3 MG/DL (0.2-1.0); CALCIUM LEVEL 9.4 MG/DL (8.8-10.2); CHOLESTEROL RISK RATIO 2.962 (<5); CREATININE FOR GFR 1.15 MG/DL (0.55-1.30); GLOMERULAR FILTRATION RATE 50.4 (>45); POTASSIUM SERUM 4.2 MEQ/L (3.5-5.1); TOTAL PROTEIN 7.7 GM/DL (6.4-8.2)
== END ==
LOC: M WUC 09:24
PROVIDERS: ATTEND Family Medicine
DX: E11.9 Type 2 diabetes mellitus without complications (principal); E78.5 Hyperlipidemia, unspecified

== ENCOUNTER → 2019-03-16 | Outpatient (CLI) | payer MEDICARE, OTHER ==
[~2019-03-16] MED LIST changes: +ASPI-1 PO; -ASPI325T PO
[2019-03-16 13:43] LABS: BASO # 0.1 10^3/uL (0.0-0.2); BASO % 0.8 % (0.0-1.0); EOS # 0.5 10^3/uL (0.0-0.50); EOS % 5.9 % (0.0-3.0); HEMOGLOBIN 13.8 g/dl (12.0-15.5); LYMPH # 2.8 10^3/uL (1.5-4.5); LYMPH % 31.3 % (24.0-44.0); MEAN CORPUSCULAR HEMOGLOBIN 29.5 pg (27.0-33.0); MEAN CORPUSCULAR HGB CONC 31.4 g/dl (32.0-36.5); MONO # 0.7 10^3/uL (0.0-0.8); NEUTROPHILS # 4.8 10^3/uL (1.8-7.7); NEUTROPHILS % 53.9 % (36.0-66.0); PLATELET COUNT, AUTOMATED 388 10^3/uL (150-450); RED BLOOD COUNT 4.68 10^6/uL (4.00-5.40); WHITE BLOOD COUNT 8.9 10^3/uL (4.0-10.0)
[2019-03-16 14:12] LABS: ALBUMIN 3.9 GM/DL (3.2-5.2); ALT/SGPT 34 U/L (12-78); BILIRUBIN,TOTAL 0.4 MG/DL (0.2-1.0); BLOOD UREA NITROGEN 17 MG/DL (7-18); CALCIUM LEVEL 9.4 MG/DL (8.8-10.2); CARBON DIOXIDE LEVEL 27 MEQ/L (21-32); CHLORIDE LEVEL 107 MEQ/L (98-107); CHOLESTEROL LEVEL 124 MG/DL (<200); CHOLESTEROL RISK RATIO 2.755 (<5); CREATININE FOR GFR 1.11 MG/DL (0.55-1.30); FREE T4 0.93 NG/DL (0.76-1.46); GLOMERULAR FILTRATION RATE 52.4 (>45); GLUCOSE, FASTING 101 MG/DL (70-100); HDL CHOLESTEROL 45 MG/DL (>40); LDL CHOLESTEROL 49 MG/DL (<100); NON-HDL-C 79 MG/DL; POTASSIUM SERUM 4.1 MEQ/L (3.5-5.1); SODIUM LEVEL 143 MEQ/L (136-145); THYROID STIMULATING HORMONE 0.977 uIU/ML (0.358-3.740); TOTAL PROTEIN 7.6 GM/DL (6.4-8.2); TRIGLYCERIDES LEVEL 149 MG/DL (<150)
[2019-03-17 12:45] LABS: HEPATITIS C VIRUS ABY INDEX < 0.0 INDEX (<0.8)
== END ==
LOC: M WUC 09:30
PROVIDERS: ATTEND Physician Assistant
DX: Z00.00 Encounter for general adult medical examination without abnormal findings (principal); E07.9 Disorder of thyroid, unspecified; E78.00 Pure hypercholesterolemia, unspecified

== ENCOUNTER → 2019-06-21 | Outpatient (CLI) | payer MEDICARE, OTHER ==
[~2019-06-21] MED LIST changes: +CYAN100049 PO; +METF-791; -METF500T4; +OMEP1CAP73 PO; -OMEP20CA3 PO; -VITA10002 PO
[2019-06-21 13:07] LABS: BASO # 0.1 10^3/uL (0.0-0.2); EOS # 0.6 10^3/uL (0.0-0.5); HEMATOCRIT 43.7 % (36.0-47.0); HEMOGLOBIN 13.7 g/dl (12.0-15.5); LYMPH # 2.5 10^3/uL (1.5-5.0); LYMPH % 35.6 % (24.0-44.0); MEAN CORPUSCULAR HEMOGLOBIN 29.5 pg (27.0-33.0); MEAN CORPUSCULAR HGB CONC 31.4 g/dl (32.0-36.5); MEAN CORPUSCULAR VOLUME 94.2 fl (80.0-96.0); MONO # 0.7 10^3/uL (0.0-0.8); MONO % 10.6 % (0.0-5.0); NEUTROPHILS # 3.1 10^3/uL (1.5-8.5); NEUTROPHILS % 44.7 % (36.0-66.0); PLATELET COUNT, AUTOMATED 372 10^3/uL (150-450); RED BLOOD COUNT 4.64 10^6/uL (4.00-5.40); WHITE BLOOD COUNT 6.9 10^3/uL (4.0-10.0)
[2019-06-21 14:00] LABS: ALBUMIN 3.7 GM/DL (3.2-5.2); ALT/SGPT 26 U/L (12-78); BILIRUBIN,TOTAL 0.3 MG/DL (0.2-1.0); BLOOD UREA NITROGEN 14 MG/DL (7-18); CALCIUM LEVEL 9.1 MG/DL (8.8-10.2); CARBON DIOXIDE LEVEL 28 MEQ/L (21-32); CHLORIDE LEVEL 107 MEQ/L (98-107); CHOLESTEROL LEVEL 151 MG/DL (<200); CHOLESTEROL RISK RATIO 2.745 (<5); FREE T4 0.83 NG/DL (0.76-1.46); GLOMERULAR FILTRATION RATE > 60.0 (>45); GLUCOSE, FASTING 87 MG/DL (70-100); HDL CHOLESTEROL 55 MG/DL (>40); LDL CHOLESTEROL 73 MG/DL (<100); NON-HDL-C 96 MG/DL; POTASSIUM SERUM 4.1 MEQ/L (3.5-5.1); SODIUM LEVEL 143 MEQ/L (136-145); TRIGLYCERIDES LEVEL 116 MG/DL (<150)
== END ==
LOC: M WUC 09:00
PROVIDERS: ATTEND Physician Assistant
DX: Z00.00 Encounter for general adult medical examination without abnormal findings (principal); E11.22 Type 2 diabetes mellitus with diabetic chronic kidney disease; J44.9 Chronic obstructive pulmonary disease, unspecified; R78.5 Finding of other psychotropic drug in blood
CPT/HCPCS: 36415; 80053; 80061; 84439; 84443; 85025; G0472

== ENCOUNTER → 2019-10-13 | Outpatient (CLI) | payer MEDICARE, OTHER ==
[~2019-10-13] MED LIST changes: +OMEP-172 PO; -OMEP1CAP73 PO
[2019-10-13 13:59] LABS: BLOOD UREA NITROGEN 16 MG/DL (7-18); CALCIUM LEVEL 9.2 MG/DL (8.8-10.2); CARBON DIOXIDE LEVEL 27 MEQ/L (21-32); CHLORIDE LEVEL 109 MEQ/L (98-107); CREATININE FOR GFR 0.95 MG/DL (0.55-1.30); GLOMERULAR FILTRATION RATE > 60.0 (>45); GLUCOSE, FASTING 93 MG/DL (70-100); POTASSIUM SERUM 4.1 MEQ/L (3.5-5.1); SODIUM LEVEL 143 MEQ/L (136-145)
[2019-10-13 14:01] LABS: HEMOGLOBIN A1c 5.8 %
== END ==
LOC: M WUC 09:15
PROVIDERS: ATTEND Physician Assistant
DX: E11.22 Type 2 diabetes mellitus with diabetic chronic kidney disease (principal)

== ENCOUNTER → 2020-04-18 | Outpatient (CLI) | payer MEDICARE, OTHER ==
[~2020-04-18] MED LIST changes: +AMLO1TAB25 PO; +ATOR80TA59 PO; +CLOB5CR TOP; +CYAN500T8 PO; +D31000TA2 PO; +ESOM1CAP5 PO; +HAIRTAB10 PO; +MELO15TA28 PO; -METF-791; +METF-838; +MULTCAP PO; -OMEP-172 PO; +OMEP1CAP73 PO; +VENTAER INH; +VICT18IN SC; +VITA-243 PO
--- NOTE | 2020-04-18 14:28 | REP ---
REASON: Atraumatic right rib pain. The accompanying frontal view of the chest is has been compared to all prior chest radiographs, the latest of which is dated 06/05/2017, a portable exam. The accompanying frontal view of the chest shows a 1.4 cm sized nodule in the left upper lobe representing a change from the prior exams. The heart is not enlarged and the pleural angles are sharp. Multiple views of the right ribs show no evidence of acute fracture or destructive osseous lesion. IMPRESSION: There is a left upper lobe coin lesion as described above and for which contrast-enhanced CT examination of the chest is recommended. Electronically Signed by Charly Yeung DO 04/18/2020 02:30 P
== END ==
LOC: M WUC 11:58
PROVIDERS: ATTEND Physician Assistant
DX: R91.8 Other nonspecific abnormal finding of lung field (principal); S20.211A Contusion of right front wall of thorax, initial encounter; X58.XXXA Exposure to other specified factors, initial encounter; Y92.89 Other specified places as the place of occurrence of the external cause

== ENCOUNTER → 2020-04-25 | Outpatient (CLI) | payer MEDICARE, OTHER ==
[~2020-04-25] MED LIST changes: -AMLO1TAB25 PO; -ATOR80TA59 PO; -CLOB5CR TOP; -CYAN500T8 PO; -D31000TA2 PO; -ESOM1CAP5 PO; -HAIRTAB10 PO; -MELO15TA28 PO; -MULTCAP PO; -VENTAER INH; -VICT18IN SC; -VITA-243 PO
== END ==
LOC: M WUC 09:07
PROVIDERS: ATTEND Physician Assistant
DX: R91.1 Solitary pulmonary nodule (principal)

== ENCOUNTER → 2020-05-28 | Outpatient (CLI) | payer MEDICARE, OTHER ==
[~2020-05-28] MED LIST changes: +AMLO1TAB25 PO; +ATOR80TA59 PO; +CLOB5CR TOP; +CYAN500T8 PO; +D31000TA2 PO; +ESOM1CAP5 PO; +HAIRTAB10 PO; +MELO15TA28 PO; +MULTCAP PO; +VENTAER INH; +VICT18IN SC; +VITA-243 PO
--- NOTE | 2020-06-11 15:06 | REP ---
PET CT HISTORY: Solitary pulmonary nodule. COMPARISON: CT study chest [facility] 04/30/2020 showed a left lower lobe pulmonary nodule. TECHNIQUE: 58 minutes following the intravenous injection of a 9.05 mCi dose of F18 FDG, 3D PET CT is acquired from the skull base to the proximal thighs in the usual fashion. PET CT FINDINGS: In the head and neck soft tissues, incidental finding of hypermetabolic nodular focus in the posterior aspect of the superficial over the right parotid gland. Maximum standard uptake value is 14.6 here. The nodule measures only 1.1 cm. In addition, there is a mildly hypermetabolic uptake in a left anterior cervical lymph node at the level of the angle of the mandible. This is under 1 cm in diameter and shows maximum standard uptake value of 5.72. These are of uncertain significance. The known left lower lobe superior segment lung nodule is also mildly hypermetabolic. Maximal standard uptake value 3.89. No other abnormal hypermetabolic uptake is seen in the thorax. In the abdomen and pelvis, normal distribution of FDG is seen. No abnormal hypermetabolic uptake is seen in the abdomen or pelvis. IMPRESSION: The superior segment left lower lobe lung nodule is mildly hypermetabolic. Malignancy must be suspected. Incidental uptake is seen in a lymph node or a small 1.1 cm mass in the right parotid gland. There is a subcentimeter normal sized left anterior jugular lymph node, which shows mildly hypermetabolic uptake as well of uncertain significance. MTDD
== END ==
LOC: M PLARAD 10:00
PROVIDERS: ATTEND Internal Medicine Pulmonary Disease
DX: R91.1 Solitary pulmonary nodule (principal)
CPT/HCPCS: 78815; A9552

== ENCOUNTER → 2020-06-07 | Outpatient (CLI) | payer MEDICARE, OTHER | LOC: M LABSMTC 12:00 | PROVIDERS: ATTEND Anesthesiology | DX: Z11.59 Encounter for screening for other viral diseases (principal) | CPT/HCPCS: C9803; U0003 ==

== ENCOUNTER → 2020-06-12 | Day surgery (SDC) | payer MEDICARE, OTHER ==
[~2020-06-12] VITALS: Ht 165.1 cm; Wt 109.3 kg
[~2020-06-12] MED LIST changes: +ALBUTEROL SULFATE 2.5 MG/0.5 ML INH NEB SOLN INH ONE; +LIDOCAINE 1% MDV 20ML VIAL SQ PRN; +LIDOCAINE 4% INJ 5ML AMP INH ONE; +LR 1,000 ML IV ONE
[2020-06-12 06:29] VITALS: BP 141/65
== END | disposition home or self-care (01) ==
LOC: M SDC 06:09
PROVIDERS: ATTEND Internal Medicine Pulmonary Disease
DX: R91.8 Other nonspecific abnormal finding of lung field (principal); Z53.09 Procedure and treatment not carried out because of other contraindication; Z79.82 Long term (current) use of aspirin

== ENCOUNTER → 2020-06-19 | Outpatient (CLI) | payer MEDICARE, OTHER ==
[~2020-06-19] MED LIST changes: -ALBUTEROL SULFATE 2.5 MG/0.5 ML INH NEB SOLN INH ONE; -LIDOCAINE 1% MDV 20ML VIAL SQ PRN; -LIDOCAINE 4% INJ 5ML AMP INH ONE; -LR 1,000 ML IV ONE
== END ==
LOC: M LABSMTC 12:19
PROVIDERS: ATTEND Anesthesiology
DX: Z01.812 Encounter for preprocedural laboratory examination (principal); Z20.828 Contact with and (suspected) exposure to other viral communicable diseases
CPT/HCPCS: C9803; U0002

== ENCOUNTER → 2020-06-21 | Outpatient (CLI) | payer MEDICARE, OTHER ==
[~2020-06-21] MED LIST changes: +LIDOCAINE 1% MDV 20ML VIAL As Ordered ONE
[2020-06-21 13:15] VITALS: BP 130/73
--- NOTE | 2020-07-04 08:30 | REP ---
ULTRASOUND-GUIDED RIGHT PAROTID MASS AND LEFT NECK LYMPH NODE BIOPSY The procedure was performed under the direct supervision of Dr. Kern. The risks and benefits of the procedure were explained to the patient and informed consent was obtained. The patient has a history of a hypermetabolic 1.1 cm mass in the right parotid gland, as well as a mildly hypermetabolic lymph node in the left anterior jugular lymph node chain. DESCRIPTION OF PROCEDURE: The right parotid mass was localized using ultrasound guidance. The skin was prepped and draped in a sterile fashion. 1% Lidocaine was used as a local anesthetic. Using ultrasound guidance, four fine needle aspirations were obtained using 25-gauge needles. The left neck lymph node was localized using ultrasound guidance. The skin was prepped and draped in a sterile fashion. 1% Lidocaine was used as a local anesthetic. Using ultrasound guidance, four fine needle aspirations were obtained using 25-gauge needles. The patient tolerated the procedure well and there were no immediate complications. After the appropriate amount of monitored convalescence, the patient was discharged from the department. PRUDENCIO
== END ==
LOC: M IRPRO 11:36
PROVIDERS: ATTEND Otolaryngology
DX: R22.1 Localized swelling, mass and lump, neck (principal)

== ENCOUNTER 2020-06-24 09:33 | Day surgery (SDC) | payer MEDICARE, OTHER ==
[~2020-06-24] VITALS: Ht 165.1 cm; Wt 109.3 kg
[~2020-06-24 09:33] MED LIST changes: -ATOR80TA59 PO; -LIDOCAINE 1% MDV 20ML VIAL As Ordered ONE; +LIDOCAINE 2% 100MG/5ML SDV (FOR ANES.) As Ordered ONE; +LR 1,000 ML IV ONE; +MIDAZOLAM INJ 2MG/2ML VIAL (J2250 PER 1MG) As Ordered ONE; +ONDANSETRON 4MG/2ML VIAL As Ordered ONE; +ROCURONIUM BROMIDE 50 MG/5 ML VIAL As Ordered ONE; +SUGAMMADEX SODIUM 500 MG/5 ML VIAL (BRIDION) As Ordered ONE; +dexameTHASONE 4 MG/ML 1ML VIAL (J1100 PER 1MG) As Ordered ONE; +fentaNYL 100 MCG/2 ML INJECTION (J3010) As Ordered ONE; +propofoL 200 MG/20 ML VIAL As Ordered ONE
[2020-06-24] MEDS ORDERED: THROMBIN SOLN 5,000 UNITS VIAL As Ordered ONE ×2 (09:43→10:11)
[2020-06-24] MEDS ORDERED: EPINEPHrine 1MG/10ML SYRINGE 1.5IN As Ordered ONE ×2 (09:44→10:11)
[2020-06-24] MEDS ORDERED: CETACAINE SPRAY 5GM As Ordered ONE (09:44)
[2020-06-24] MEDS ORDERED: LIDOCAINE 1% SDV 30ML VIAL As Ordered ONE ×2 (09:44→10:11)
[2020-06-24] MEDS ORDERED: LIDOCAINE 4% INJ 5ML AMP As Ordered ONE (10:08)
[2020-06-24] MEDS ORDERED: ALBUTEROL SULFATE 2.5 MG/0.5 ML INH NEB SOLN As Ordered ONE (10:08)
[2020-06-24] MEDS ORDERED: LIDOCAINE VISCOUS 2% SOLN 15ML UDC As Ordered ONE (10:11)
[2020-06-24] MEDS ORDERED: LIDOCAINE 4% TOPICAL SOLN 50 ML BTL As Ordered ONE (10:11)
[2020-06-24] MEDS ORDERED: LIDOCAINE 4% INJ 5ML AMP INH ONE (10:30)
[2020-06-24] MEDS ORDERED: ALBUTEROL SULFATE 2.5 MG/0.5 ML INH NEB SOLN INH ONE (10:30)
[2020-06-24] MEDS ORDERED: ONDANSETRON 4MG/2ML VIAL IV PRN (13:00)
[2020-06-24] MEDS ORDERED: oxyCODONE 5MG TAB PO PRN (13:00)
[2020-06-24] MEDS ORDERED: fentaNYL 100 MCG/2 ML INJECTION (J3010) IV PRN (13:00)
[2020-06-24] MEDS ORDERED: LR 1,000 ML IV SCH (13:00)
[2020-06-24] MEDS ORDERED: ROCURONIUM BROMIDE 50 MG/5 ML VIAL As Ordered ONE (13:17)
[2020-06-24] MEDS ORDERED: ACETAMINOPHEN 1000MG 100ML IV BTL (OFIRMEV) (J0131 PER 10MG) As Ordered ONE (13:17)
[2020-06-24] MEDS ORDERED: PHENYLephrine HCL 500 MCG/5 ML (100MCG/ML) SYRINGE (J2370) As Ordered ONE (13:25)
[2020-06-24] MEDS ORDERED: SUGAMMADEX SODIUM 500 MG/5 ML VIAL (BRIDION) As Ordered ONE (13:50)
[2020-06-24 14:05] VITALS: BP 128/62
--- NOTE | 2020-07-04 08:32 | REP ---
PORTABLE CHEST X-RAY: SITTING AP VIEW HISTORY: Status post bronchoscopy. COMPARISON: Chest x-ray 04/18/2020. FINDINGS: Monitoring electrodes overlie the chest. There is no evidence of pneumothorax. There is an ill-defined left parahilar opacity consistent with small parenchymal hemorrhage or infiltrate. The nodular opacity observed on 04/18/2020, is partially obscured. Plate-like atelectasis is seen elsewhere in the left upper lobe. IMPRESSION: No pneumothorax seen. MTDD
--- NOTE | 2020-07-05 10:38 | RO ---
DATE OF OPERATION: 06/24/2020 PREOPERATIVE DIAGNOSIS: Abnormalities chest CT avid solitary nodule. POSTOPERATIVE DIAGNOSIS: Abnormalities chest CT avid solitary nodule. PROCEDURE: Bronchoscopy with robotic navigation. FINDINGS: Normal airways. ASSISTANTS: Dr. Andrade and Dr. Lazaro. SPECIMENS: 1. Cytobrush left lower lobe. 2. Forceps biopsies left lower lobe. 3. BAL left lower lobe. ANESTHESIA: General. Please refer to their records for details. ESTIMATED BLOOD LOSS: Less than 5 ml. COMPLICATIONS: None. DRAINS: No DSCRIPTION OF PROCEDURE: After informed consent was reviewed with the patient in the preoperative area, she was brought back to the operative room (OR) 8. Anesthesia was initiated with an 8.5 endotracheal tube. Case was handed over to me. Second time-out was performed with two patient identifiers, identifying the correct site, correct procedure along with verifying the patient's name and date of with the pre-mapped Spartoo Platform. 1T-190 bronchoscope was then used to review the airways. I then performed the Percepta brushing of the right mainstem; both anterior and posterior airway. I then inspected the airways. Trachea was midline. Hortencia was sharp. Right and left mainstem bronchi were normal, except for minimal amounts of mucus. RB1 through 10 was normal without endobronchial lesions. RBI was normal. Nice wide patent airways. LB1 through 10 was normal, wide patent airways. Bronchoscope was then retracted into the endotracheal tube and switched over to Spartoo navigation. Robotic bronchoscope was inserted after the 1T-190 bronchoscope was retracted. This was set up for a left lower lobe lesion that was seen on CT and avid PET scan. Target #1 was difficult to navigate to radial ultrasound suggested circumferential tissue. There were actually two separate areas that were biopsied based on radial ultrasound tissue. One was slightly more medial than the other in the superior segment of the left lower lobe. First cytology brushing was obtained, then forceps biopsies were obtained and BAL. After adequate sampling, the bronchoscope was removed. There was unrecoverable error with the robotic bronchoscope, this was shunt down. That bronchoscope was removed after the BAL. The 1T-190 bronchoscope was then inserted, all airways were inspected. Hemostasis was ensured and the 1T-190 bronchoscope was removed. There were no observed complications. The patient is in recovery. Will await pathology results. [facility]
[2020-07-17] MEDS ORDERED: ATOR80TA59 PO (08:58)
== END 2020-06-24 14:13 | disposition home or self-care (01) ==
LOC: M SDC 09:33
PROVIDERS: ATTEND Internal Medicine Pulmonary Disease
DX: J84.9 Interstitial pulmonary disease, unspecified (principal); J44.9 Chronic obstructive pulmonary disease, unspecified; I10 Essential (primary) hypertension; I25.2 Old myocardial infarction; Z98.61 Coronary angioplasty status; E11.9 Type 2 diabetes mellitus without complications; E78.5 Hyperlipidemia, unspecified; I50.30 Unspecified diastolic (congestive) heart failure; K21.9 Gastro-esophageal reflux disease without esophagitis; G47.33 Obstructive sleep apnea (adult) (pediatric); Z79.899 Other long term (current) drug therapy; Z87.891 Personal history of nicotine dependence; Z79.82 Long term (current) use of aspirin; F41.9 Anxiety disorder, unspecified; F32.9 Major depressive disorder, single episode, unspecified
CPT/HCPCS: 31623; 31624; 31627; 31628; 71045; 76000; 88104; 88108; 88305; 88313; J0131; J1100; J2250; J2370; J2405; J3010; S2900

== ENCOUNTER → 2020-07-01 | Outpatient (REF) | payer MEDICARE, OTHER ==
[~2020-07-01] MED LIST changes: +ATOR80TA59 PO; -LIDOCAINE 2% 100MG/5ML SDV (FOR ANES.) As Ordered ONE; -LR 1,000 ML IV ONE; -MIDAZOLAM INJ 2MG/2ML VIAL (J2250 PER 1MG) As Ordered ONE; -ONDANSETRON 4MG/2ML VIAL As Ordered ONE; -ROCURONIUM BROMIDE 50 MG/5 ML VIAL As Ordered ONE; -SUGAMMADEX SODIUM 500 MG/5 ML VIAL (BRIDION) As Ordered ONE; -dexameTHASONE 4 MG/ML 1ML VIAL (J1100 PER 1MG) As Ordered ONE; -fentaNYL 100 MCG/2 ML INJECTION (J3010) As Ordered ONE; -propofoL 200 MG/20 ML VIAL As Ordered ONE
[2020-07-01 17:57] LABS: PLATELET COUNT, AUTOMATED 352 10^3/uL (150-450)
[2020-07-01 18:08] LABS: INR 0.88; PROTHROMBIN TIME 12.1 SECONDS (12.5-14.3)
[2020-07-01 18:09] LABS: PARTIAL THROMBOPLASTIN TIME 28.2 SECONDS (24.2-38.5)
== END ==
LOC: M LAB REF 16:57
PROVIDERS: ATTEND Internal Medicine Pulmonary Disease
DX: R91.1 Solitary pulmonary nodule (principal); Z79.82 Long term (current) use of aspirin

== ENCOUNTER → 2020-07-17 | Outpatient (CLI) | payer MEDICARE, OTHER ==
[~2020-07-17] MED LIST changes: +LIDOCAINE 1% MDV 20ML VIAL As Ordered ONE; +SODIUM BICARBONATE 8.4% INJ 50MEQ 50 ML VIAL As Ordered ONE
[2020-07-17 11:00] VITALS: BP 119/69
--- NOTE | 2020-07-22 07:52 | REP ---
DATE: 07/20/2020 TIME: 10:09 a.m. CHEST X-RAY: Single view. HISTORY: Post biopsy chest. The patient is status post CT guided needle biopsy, left lung nodule. COMPARISON: Portable chest x-ray July 24, 2020. FINDINGS: There is a nodular opacity in the left upper parahilar region at the biopsy site. There is no evidence of pneumothorax or hydrothorax. The right lung is clear. Heart is not enlarged. IMPRESSOIN: No complications seen. No evidence of pneumothorax. MTDD
--- NOTE | 2020-07-22 07:53 | REP ---
DATE: 07/17/2020 CT GUIDED LEFT LUNG BIOPSY This procedure was performed by BALDOMERO King, under the direct supervision of Dr. Kern. The patient has a history of a left lower lobe superior segment hypermetabolic nodule measuring 1.4 cm in its greatest diameter, again visualized on a PET CT dated 05/28/2020. The risks and benefits of the procedure were explained to the patient and an informed consent was obtained both verbally and written. Directly prior to the start of the procedure, a formal time-out was completed in the procedure room. The left lung nodule was localized using CT guidance. The skin was prepped and draped in a sterile fashion. Approximately 6 ml of buffered lidocaine was used as a local anesthetic. Using CT guidance, a 19/20 gauge coaxial needle biopsy system was inserted and advanced into this nodule. Six core biopsies samples were obtained and sent to the laboratory for further analysis. Post procedural CAT scan imaging showed no evidence of a pneumothorax. The patient tolerated the procedure extremely well. After the appropriate amount of monitored convalescence, the patient was discharged from the department. PRUDENCIO
== END ==
LOC: M IRPRO 08:06
PROVIDERS: ATTEND Internal Medicine Pulmonary Disease
DX: C34.92 Malignant neoplasm of unspecified part of left bronchus or lung (principal)

== ENCOUNTER → 2020-08-22 | Outpatient (CLI) | payer MEDICARE, OTHER ==
[~2020-08-22] MED LIST changes: -LIDOCAINE 1% MDV 20ML VIAL As Ordered ONE; -SODIUM BICARBONATE 8.4% INJ 50MEQ 50 ML VIAL As Ordered ONE
== END ==
LOC: M LABSMTC 12:26
PROVIDERS: ATTEND Anesthesiology
DX: Z01.812 Encounter for preprocedural laboratory examination (principal); Z20.828 Contact with and (suspected) exposure to other viral communicable diseases

== ENCOUNTER → 2020-08-22 | Outpatient (CLI) | payer MEDICARE, OTHER ==
[2020-08-22 13:33] LABS: ABG HCO3 26.3 MEQ/L (22.0-26.0); ABG O2 SATURATION 94.3 % (95.0-99.0); ABG PARTIAL PRESSURE O2 70.5 mmHg (75.0-100.0); ABG STANDARD HCO3 25.3 MEQ/L (22.0-26.0); ABG TOTAL CO2 27.6 MEQ/L (23.0-31.0); ABG pH (ARTERIAL) 7.394 UNITS (7.350-7.450)
[2020-08-22 13:42] LABS: HEMOGLOBIN 14.4 g/dl (12.0-15.5); MEAN CORPUSCULAR HGB CONC 31.3 g/dl (32.0-36.5); MEAN CORPUSCULAR VOLUME 92.7 fl (80.0-96.0); PLATELET COUNT, AUTOMATED 335 10^3/uL (150-450); RED BLOOD COUNT 4.96 10^6/uL (4.00-5.40); WHITE BLOOD COUNT 7.1 10^3/uL (4.0-10.0)
[2020-08-22 13:51] LABS: AMORPHOUS SEDIMENT SMALL (NEGATIVE); APPEARANCE, URINE HAZY (CLEAR); BACTERIA, URINE AUTO NEGATIVE (NEGATIVE); BILIRUBIN, URINE AUTO NEGATIVE (NEGATIVE); BLOOD, URINE BLOOD NEGATIVE (NEGATIVE); COLOR, URINE YELLOW (YELLOW); GLUCOSE, URINE (UA) AUTO NEGATIVE (NEGATIVE); KETONE, URINE AUTO NEGATIVE (NEGATIVE); LEUKOCYTE ESTERASE, URINE AUTO 2+ (NEGATIVE); MUCUS, URINE SMALL (NEGATIVE); NITRITE, URINE AUTO NEGATIVE (NEGATIVE); PROTEIN, URINE AUTO NEGATIVE (NEGATIVE); RBC, URINE AUTO 3 /HPF (0-3); SPECIFIC GRAVITY URINE AUTO 1.015 (1.002-1.035); SQUAMOUS EPITHELIAL CELL UR AU 11 /HPF (0-6); UROBILINOGEN, URINE AUTO 0.2 mg/dL (0.0-2.0); WBC, URINE AUTO 6 /HPF (0-3)
[2020-08-22 13:54] LABS: INR 0.9; PROTHROMBIN TIME 12.3 SECONDS (12.5-14.3)
[2020-08-22 13:55] LABS: PARTIAL THROMBOPLASTIN TIME 26.9 SECONDS (24.2-38.5)
[2020-08-22 14:06] LABS: CALCIUM LEVEL 9.4 MG/DL (8.8-10.2); CREATININE FOR GFR 1.07 MG/DL (0.55-1.30); GLOMERULAR FILTRATION RATE 54.5 (>45)
--- NOTE | 2020-08-22 16:13 | REP ---
INDICATION: LUNG CA. COMPARISON: Frontal view of 07/17/2020 FINDINGS: The superior mediastinal structures are midline. The cardiac silhouette is unremarkable in size, shape, and position. The diaphragmatic surfaces of the lungs are regular, and the costophrenic angles are clear. The opacities seen previously in the region of the superior segment of the left lower lobe has gotten smaller. There are no new abnormal opacities. The pleural angles are sharp. There is no change in the osseous structures.. IMPRESSION: Improvement as described above. <Electronically signed by Charly Yeung > 08/22/20 [id number]
--- NOTE | 2020-08-24 14:27 | ECGEPIP ---
[facility] Test Date: 2020-08-22 Pat Name: WALLACE LUGO Department: Room: - Gender: Female Advocacy Director: CRAIG : 1955 Requested By: Garret Beatty Order Number: [id number] Reading MD: Ja Alcaraz Measurements Intervals [place] Rate: 62 P: 69 ME: 176 QRS: -12 QRSD: 83 T: 73 QT: 431 QTc: 438 Interpretive Statements SINUS RHYTHM BORDERLINE LEFT AXIS DEVIATION Compared to prior tracings in the system, no significant changes Electronically Signed on 08-24-2020 14:27:42 EST by Ja Alcaraz
== END ==
LOC: M ADMPAT 12:49
PROVIDERS: ATTEND Thoracic Surgery (Cardiothoracic Vascular Surgery)
DX: Z01.812 Encounter for preprocedural laboratory examination (principal); Z20.828 Contact with and (suspected) exposure to other viral communicable diseases
CPT/HCPCS: 36415; 71046; 80048; 81001; 82803; 85027; 85610; 85730; 93005; U0003

== ENCOUNTER 2020-08-26 06:18 | Inpatient (IN) | payer MEDICARE, OTHER ==
[2020-08-22 13:58] VITALS: BP 150/84
[2020-08-26] VITALS (7 sets, daily range): BP systolic 97–130; BP diastolic 50–75
[~2020-08-26] VITALS: Ht 167.6 cm; Wt 110.0 kg
[~2020-08-26 06:18] MED LIST changes: +LIDOCAINE 1% MDV 20ML VIAL SQ PRN; +LR 1,000 ML IV ONE; +MUPIROCIN 2% OINT 22 GM TUBE TOP ONE; +ceFAZolin SOD 2 GM in IV 1 EA IV ONE
[2020-08-26] MEDS ORDERED: ROCURONIUM BROMIDE 50 MG/5 ML VIAL As Ordered ONE ×3 (07:08→10:31)
[2020-08-26] MEDS ORDERED: LIDOCAINE 2% 100MG/5ML SDV (FOR ANES.) As Ordered ONE (07:08)
[2020-08-26] MEDS ORDERED: propofoL 200 MG/20 ML VIAL As Ordered ONE (07:08)
[2020-08-26] MEDS ORDERED: MIDAZOLAM INJ 2MG/2ML VIAL (J2250 PER 1MG) As Ordered ONE ×2 (07:09→07:12)
[2020-08-26] MEDS ORDERED: fentaNYL 100 MCG/2 ML INJECTION (J3010) As Ordered ONE ×2 (07:09→07:12)
[2020-08-26] MEDS ORDERED: dexameTHASONE 4 MG/ML 1ML VIAL (J1100 PER 1MG) As Ordered ONE (07:09)
[2020-08-26] MEDS ORDERED: ONDANSETRON 4MG/2ML VIAL As Ordered ONE (07:09)
[2020-08-26] MEDS ORDERED: BUPIVACAINE HCL 0.25% 30ML VIAL As Ordered ONE (07:28)
[2020-08-26] MEDS ORDERED: BUPIVACAINE HCL 0.5% 10ML VIAL As Ordered ONE (07:32)
[2020-08-26] MEDS ORDERED: CETACAINE SPRAY 5GM As Ordered ONE (07:32)
[2020-08-26] MEDS ORDERED: BUPIVACAINE LIPOSOME/PF 1.3% 20ML VIAL (13.3MG/ML)(EXPAREL)(C9290 PER1MG) As Ordered ONE (07:32)
[2020-08-26] MEDS ORDERED: ePHEDrine SULFATE 25 MG/5 ML(5MG/ML) SYRINGE As Ordered ONE ×2 (08:05→09:21)
[2020-08-26] MEDS ORDERED: PHENYLephrine HCL 500 MCG/5 ML (100MCG/ML) SYRINGE (J2370) As Ordered ONE (08:06)
[2020-08-26] MEDS ORDERED: WALLBOXKEY XX PRN (08:15)
[2020-08-26] MEDS ORDERED: diphenhydrAMINE 50MG/ML VIAL (J1200) IV PRN (08:15)
[2020-08-26] MEDS ORDERED: ONDANSETRON 4MG/2ML VIAL IV PRN ×3 (08:15→13:00)
[2020-08-26] MEDS ORDERED: fentaNYL 100 MCG/2 ML INJECTION (J3010) IV ONE (08:15)
[2020-08-26] MEDS ORDERED: EPIDURAL/PCA KEYS XX PRN (08:15)
[2020-08-26] MEDS ORDERED: METOCLOPRAMIDE INJ 10MG/2ML VIAL (J2765 PER 1) IV PRN (08:15)
[2020-08-26] MEDS ORDERED: MIDAZOLAM INJ 2MG/2ML VIAL (J2250 PER 1MG) IV ONE (08:15)
[2020-08-26] MEDS ORDERED: NALOXONE INJ 0.4MG/1ML VIAL (J2310 PER 1MG) IV PRN (08:15)
[2020-08-26] MEDS ORDERED: HYDROmorphone HCL 2 MG/ML 1ML VIAL (J1170) As Ordered ONE (08:58)
[2020-08-26] MEDS ORDERED: PHENYLEPHRINE 10MG/ML 1ML VIAL (J2370 PER 1) As Ordered ONE (10:01)
[2020-08-26] MEDS ORDERED: SUGAMMADEX SODIUM 500 MG/5 ML VIAL (BRIDION) As Ordered ONE (11:13)
[2020-08-26] MEDS ORDERED: ACETAMINOPHEN 1000MG 100ML IV BTL (OFIRMEV) (J0131 PER 10MG) As Ordered ONE (11:13)
[2020-08-26] MEDS ORDERED: BISACODYL 10 MG SUPP PR PRN (12:15)
[2020-08-26] MEDS ORDERED: GLUCOSE 4GM CHEW TABLET PO PRN (12:15)
[2020-08-26] MEDS ORDERED: GLUCAGON INJ 1MG VIAL SC PRN (12:15)
[2020-08-26] MEDS ORDERED: DEXTROSE 50% 50 ML SYRINGE IV PRN (12:15)
[2020-08-26] MEDS ORDERED: NORCO, ANEXSIA 5/325MG TABLET (HYDROcodone/ACETAMINOPHEN) PO PRN (12:15)
[2020-08-26] MEDS ORDERED: LEVALBUTEROL 1.25 MG/0.5 ML CONCENTRATE NEB NEB PRN (12:15)
[2020-08-26] MEDS: fentaNYL 100 MCG/2 ML INJECTION (J3010) IV PRN ×2 (12:42→13:08)
[2020-08-26] MEDS: FENTANYL/BUPIVACAINE/NACL BAG 250 ML EPIDURAL SCH (12:42)
[2020-08-26 12:54] LABS: ABG BASE EXCESS -1.3 (-2.0-2.0); ABG HCO3 26.6 MEQ/L (22.0-26.0); ABG O2 SATURATION 99.6 % (95.0-99.0); ABG PARTIAL PRESSURE CO2 58.9 mmHg (35.0-45.0); ABG STANDARD HCO3 23.4 MEQ/L (22.0-26.0); ABG TOTAL CO2 28.4 MEQ/L (23.0-31.0); ABG pH (ARTERIAL) 7.273 UNITS (7.350-7.450)
[2020-08-26 12:55] LABS: BASO # 0.1 10^3/uL (0.0-0.2); BASO % 0.3 % (0.0-1.0); EOS # 0.1 10^3/uL (0.0-0.5); EOS % 0.6 % (0.0-3.0); HEMATOCRIT 41.3 % (36.0-47.0); HEMOGLOBIN 12.7 g/dl (12.0-15.5); LYMPH # 1.3 10^3/uL (1.5-5.0); MEAN CORPUSCULAR HEMOGLOBIN 29.2 pg (27.0-33.0); MEAN CORPUSCULAR HGB CONC 30.8 g/dl (32.0-36.5); MEAN CORPUSCULAR VOLUME 94.9 fl (80.0-96.0); MONO # 1.2 10^3/uL (0.0-0.8); MONO % 8.4 % (0.0-5.0); NEUTROPHILS # 11.9 10^3/uL (1.5-8.5); NEUTROPHILS % 81.2 % (36.0-66.0); PLATELET COUNT, AUTOMATED 304 10^3/uL (150-450); RED BLOOD COUNT 4.35 10^6/uL (4.00-5.40); WHITE BLOOD COUNT 14.7 10^3/uL (4.0-10.0)
--- NOTE | 2020-08-26 12:56 | REP ---
INDICATION: s/p lobectomy LLL COMPARISON: 08/22/2020 TECHNIQUE: Portable AP view of the chest FINDINGS: Two left-sided chest tubes are identified along with postsurgical changes including small amount of subcutaneous emphysema along the left lateral chest wall. No consolidation, atelectasis, pleural effusion, or obvious pneumothorax identified. Right hemithorax is clear. Mediastinum and cardiac silhouette are grossly normal. Skeletal structures are intact. IMPRESSION: Postsurgical changes involving the left hemithorax. <Electronically signed by Brendan Camara > 08/26/20 [id number]
[2020-08-26] MEDS ORDERED: oxyCODONE 5MG TAB PO PRN (13:00)
[2020-08-26] MEDS ORDERED: KETOROLAC 30 MG/ML 1ML VIAL IV ONE (13:00)
[2020-08-26] MEDS ORDERED: LR 1,000 ML IV SCH (13:00)
[2020-08-26 13:20] LABS: CALCIUM LEVEL 8.5 MG/DL (8.8-10.2); CREATININE FOR GFR 1.31 MG/DL (0.55-1.30); GLOMERULAR FILTRATION RATE 43.1 (>45); POTASSIUM SERUM 4.2 MEQ/L (3.5-5.1)
[2020-08-26] MEDS: LEVALBUTEROL 1.25 MG/0.5 ML CONCENTRATE NEB NEB SCH ×2 (14:00→19:49)
[2020-08-26] MEDS: KCL 20MEQ IN D5/NS 1000ML 1,000 ML IV SCH (15:16)
[2020-08-26] MEDS: VITAMIN D 1,000 INTERNATIONAL UNITS TABLET PO SCH (15:16)
[2020-08-26] MEDS: ASCORBIC ACID 500 MG TAB PO SCH (15:16)
[2020-08-26] MEDS: CYANOCOBALAMIN 500 MCG TAB PO SCH (15:17)
[2020-08-26] MEDS: ceFAZolin SOD 1 GM in D5W MINI-BAG PLUS 50 ML IV SCH ×2 (15:17→23:39)
[2020-08-26] MEDS: MOM 30ML SUSPENSION UDC PO SCH (15:17)
[2020-08-26] MEDS ORDERED: HumaLOG INSULIN (NovoLOG) PER UNIT SC SCH (17:30)
[2020-08-26] MEDS: KETOROLAC 30 MG/ML 1ML VIAL IV SCH (18:39)
[2020-08-26] MEDS: HEPARIN SOD (PORCINE) 5000UNITS/ML 1ML VIAL/SYRINGE SC SCH (21:00)
[2020-08-26] MEDS: ATORVASTATIN 20 MG TAB PO SCH (21:04)
[2020-08-26] MEDS: VENLAFAXINE **XR** 75MG CAPSULE PO SCH (21:05)
[2020-08-26] MEDS: DOCUSATE SODIUM 100 MG CAP PO SCH (21:05)
[2020-08-26] MEDS: METOPROLOL TART 50 MG TAB PO SCH (21:24)
[2020-08-26] MEDS: amLODIPine 10 MG TAB PO SCH (21:24)
[2020-08-27] VITALS (13 sets, daily range): BP systolic 94–140; BP diastolic 49–76
[2020-08-27] MEDS: KETOROLAC 30 MG/ML 1ML VIAL IV SCH ×4 (00:30→18:28)
[2020-08-27] MEDS: LEVALBUTEROL 1.25 MG/0.5 ML CONCENTRATE NEB NEB SCH ×4 (01:06→19:38)
[2020-08-27 05:00] LABS: BASO % 0.3 % (0.0-1.0); EOS % 0.4 % (0.0-3.0); HEMATOCRIT 39.5 % (36.0-47.0); HEMOGLOBIN 12.1 g/dl (12.0-15.5); LYMPH # 1.8 10^3/uL (1.5-5.0); LYMPH % 18.5 % (24.0-44.0); MEAN CORPUSCULAR HEMOGLOBIN 29.2 pg (27.0-33.0); MEAN CORPUSCULAR HGB CONC 30.6 g/dl (32.0-36.5); MEAN CORPUSCULAR VOLUME 95.4 fl (80.0-96.0); MONO # 1.2 10^3/uL (0.0-0.8); MONO % 12.2 % (0.0-5.0); NEUTROPHILS # 6.7 10^3/uL (1.5-8.5); NEUTROPHILS % 68.3 % (36.0-66.0); PLATELET COUNT, AUTOMATED 275 10^3/uL (150-450); RED BLOOD COUNT 4.14 10^6/uL (4.00-5.40); WHITE BLOOD COUNT 9.9 10^3/uL (4.0-10.0)
[2020-08-27 05:21] LABS: BLOOD UREA NITROGEN 17 MG/DL (7-18); CARBON DIOXIDE LEVEL 28 MEQ/L (21-32); CHLORIDE LEVEL 110 MEQ/L (98-107); CREATININE FOR GFR 0.96 MG/DL (0.55-1.30); GLOMERULAR FILTRATION RATE > 60.0 (>45); GLUCOSE, FASTING 122 MG/DL (70-100); POTASSIUM SERUM 4.1 MEQ/L (3.5-5.1); SODIUM LEVEL 142 MEQ/L (136-145)
[2020-08-27] MEDS: KCL 20MEQ IN D5/NS 1000ML 1,000 ML IV SCH (05:30)
[2020-08-27 06:26] LABS: ABG BASE EXCESS 0.9 (-2.0-2.0); ABG HCO3 27.3 MEQ/L (22.0-26.0); ABG O2 SATURATION 92.5 % (95.0-99.0); ABG PARTIAL PRESSURE CO2 51.2 mmHg (35.0-45.0); ABG PARTIAL PRESSURE O2 62.9 mmHg (75.0-100.0); ABG STANDARD HCO3 25.2 MEQ/L (22.0-26.0); ABG TOTAL CO2 28.9 MEQ/L (23.0-31.0); ABG pH (ARTERIAL) 7.345 UNITS (7.350-7.450)
--- NOTE | 2020-08-27 07:10 | RO ---
DATE OF OPERATION: 08/26/2020 PREPROCEDURE DIAGNOSIS: Left upper lobe squamous cell carcinoma, clinical stage IA. POSTPROCEDURE DIAGNOSIS: Left upper lobe squamous cell carcinoma, clinical stage IA. PROCEDURE: Left lower lobectomy, mediastinal lymphadenectomy, five-level rib block and bronchoscopy. SURGEON: Garret Johnson M.D. FINDINGS: There was an approximately 1-1/2 cm lesion in the apicobasal segment of the left lower lobe. She had a complete fissure. She is morbidly obese, however. Her lower lobe was extensively adherent to the diaphragm with those adhesions having been lysed prior to releasing the inferior pulmonary ligament. The bronchoscopy revealed a normal branching right tracheobronchial tree. There were no endobronchial lesions. PROCEDURE: Under satisfactory single-lumen tube intubation, the bronchoscope was passed into the tracheobronchial tree. There was a normal branching pattern. She did have excess secretions which were suction aspirated. There were no endobronchial lesions. The patient was then reintubated with a double-lumen tube and the position checked with the bronchoscopy. The patient was then turned in the right lateral decubitus position and sterilely prepped and draped in the usual sterile fashion. The posterolateral thoracotomy incision was made. The chest was entered through the fifth intercostal space after dividing both the latissimus dorsi muscle and a slip of the serratus anterior. Ribs were counted. A retractor was placed and the intercostal muscles were undercut so as to gain more access to the chest through a limited incision. It was noted that the fissure was complete and dissection was started at the depth of the fissure and the pulmonary arteries were isolated. There were two major lower lobe branches. Prior to dividing the vessels, the fissures were completed by use of an echelon stapler first by incising the posterior mediastinal pleura and creating a tunnel just posterior to the first lower lobe branch and dividing the fissure with an Hawkeye stapler. Likewise for the anterior fissure, the mediastinal pleura was incised over the pulmonary vein. At this point, we encountered excess adhesions to the diaphragm and these all had to be lysed and removed. The inferior pulmonary ligament was released and a tunnel was created just anterior to the last lower lobe pulmonary branch into the recess between the inferior and superior pulmonary veins. This was then divided by Hawkeye stapler. The two arteries were then stapled with vascular staplers after encircling them with vessel loops and exerting a small amount of traction in order to get the ski tip stapler underneath the artery. Attention was then turned to the pulmonary vein which was dissected free of all the overlying adipose tissue and divided by use of another vascular stapler. This then left the bronchus. I tried to use an echelon stapler to divide the bronchus. However, it would not fit because of her large body size and therefore it was divided by use of a TA-34.8 stapler. The stump was amputated and oversewn with interrupted 3-0 Vicryl suture. The bronchus was tested in 30 cm of water and it was found to be intact. The specimen was delivered to the back table for pathological examination. There was one inch of intrapulmonary artery node which was removed and sent as a separate specimen. Attention was then turned to the mediastinum where the mediastinal pleura was incised just medial to the aortic arch between the arch and the pulmonary artery. A large anthracotic looking node was found on the pulmonary artery and this was removed in toto with the use of both sharp and blunt dissection. The phrenic nerve prior to any major dissection was identified and meticulously preserved. Because of the adipose tissue, I could not directly visualize the recurrent laryngeal nerve. There were no deep nodes, however, within the AP window. Tisseel glue was placed in the mediastinal space as well as along all the incisions and staple lines. A five-level rib block consisting of Marcaine and Exparel was then instilled underneath each rib. Two chest tubes were placed, a #24 curved and a #24 straight and secured to the chest wall. The ribs were then reapproximated by use of a #1 Prolene pericostal [id number] sutures. The extrathoracic muscles were closed with running 0 Vicryl suture, subcutaneous tissue closed by use of 3-0 Vicryl suture and the skin closed by use of 3-0 Monocryl subcuticular suture. The patient tolerated the procedure well and left the operating room in satisfactory condition to the recovery room. PRUDENCIO
--- NOTE | 2020-08-27 08:18 | REP ---
INDICATION: s/p lobectomy LLL COMPARISON: 08/26/2020 TECHNIQUE: PA and lateral. FINDINGS: Patient is status post partial left lobectomy. Two stable chest tubes are again identified within the left hemithorax. Small amount of subcutaneous emphysema has improved. No obvious focal consolidation, effusion, or pneumothorax. Previous left lower lobe opacities have improved/resolved. Right hemithorax is well aerated and clear. Mediastinum and cardiac silhouette are relatively normal/stable. IMPRESSION: No obvious acute consolidation, effusion, or pneumothorax. Improved aeration to the left lower lung zone. <Electronically signed by Brendan Camara > 08/27/20 0877
[2020-08-27] MEDS: ceFAZolin SOD 1 GM in D5W MINI-BAG PLUS 50 ML IV SCH ×3 (09:30→23:52)
[2020-08-27] MEDS: ASPIRIN 325 MG TAB PO SCH (10:26)
[2020-08-27] MEDS: DOCUSATE SODIUM 100 MG CAP PO SCH ×2 (10:26→20:23)
[2020-08-27] MEDS: VENLAFAXINE **XR** 75MG CAPSULE PO SCH ×2 (10:27→20:24)
[2020-08-27] MEDS: METOPROLOL TART 50 MG TAB PO SCH ×2 (10:28→20:24)
[2020-08-27] MEDS: MOM 30ML SUSPENSION UDC PO SCH (10:29)
[2020-08-27] MEDS: PANTOPRAZOLE 40MG TAB (PROTONIX) PO SCH (10:29)
[2020-08-27] MEDS: CYANOCOBALAMIN 500 MCG TAB PO SCH (10:30)
[2020-08-27] MEDS: ASCORBIC ACID 500 MG TAB PO SCH (10:30)
[2020-08-27] MEDS: VITAMIN D 1,000 INTERNATIONAL UNITS TABLET PO SCH (10:30)
[2020-08-27] MEDS: HEPARIN SOD (PORCINE) 5000UNITS/ML 1ML VIAL/SYRINGE SC SCH ×2 (10:31→20:23)
[2020-08-27] MEDS: FENTANYL/BUPIVACAINE/NACL BAG 250 ML EPIDURAL SCH (10:33)
[2020-08-27] MEDS: HumaLOG INSULIN (NovoLOG) PER UNIT SC SCH ×3 (13:41→20:41)
[2020-08-27] MEDS: ATORVASTATIN 20 MG TAB PO SCH (20:24)
[2020-08-27] MEDS: amLODIPine 10 MG TAB PO SCH (20:24)
[2020-08-28] VITALS (12 sets, daily range): BP systolic 107–139; BP diastolic 60–84; O2SAT 88–93
[2020-08-28] MEDS: KETOROLAC 30 MG/ML 1ML VIAL IV SCH ×4 (00:01→18:17)
[2020-08-28] MEDS: LEVALBUTEROL 1.25 MG/0.5 ML CONCENTRATE NEB NEB SCH ×4 (01:30→20:24)
[2020-08-28 05:00] LABS: BASO # 0.1 10^3/uL (0.0-0.2); BASO % 0.4 % (0.0-1.0); EOS # 0.2 10^3/uL (0.0-0.5); EOS % 1.9 % (0.0-3.0); HEMATOCRIT 39.4 % (36.0-47.0); HEMOGLOBIN 11.7 g/dl (12.0-15.5); LYMPH # 2.3 10^3/uL (1.5-5.0); LYMPH % 20.4 % (24.0-44.0); MEAN CORPUSCULAR HEMOGLOBIN 28.1 pg (27.0-33.0); MEAN CORPUSCULAR HGB CONC 29.7 g/dl (32.0-36.5); MEAN CORPUSCULAR VOLUME 94.5 fl (80.0-96.0); MONO # 1.5 10^3/uL (0.0-0.8); MONO % 13.2 % (0.0-5.0); NEUTROPHILS # 7.2 10^3/uL (1.5-8.5); NEUTROPHILS % 63.8 % (36.0-66.0); PLATELET COUNT, AUTOMATED 278 10^3/uL (150-450); RED BLOOD COUNT 4.17 10^6/uL (4.00-5.40); WHITE BLOOD COUNT 11.3 10^3/uL (4.0-10.0)
[2020-08-28 05:19] LABS: BLOOD UREA NITROGEN 18 MG/DL (7-18); CALCIUM LEVEL 8.4 MG/DL (8.8-10.2); CARBON DIOXIDE LEVEL 30 MEQ/L (21-32); CHLORIDE LEVEL 107 MEQ/L (98-107); CREATININE FOR GFR 0.98 MG/DL (0.55-1.30); GLOMERULAR FILTRATION RATE > 60.0 (>45); GLUCOSE, FASTING 121 MG/DL (70-100); POTASSIUM SERUM 4.6 MEQ/L (3.5-5.1); SODIUM LEVEL 139 MEQ/L (136-145)
[2020-08-28] MEDS ORDERED: FUROSEMIDE 40MG/4ML VIAL (J1940) IV ONE (06:15)
--- NOTE | 2020-08-28 08:40 | REP ---
INDICATION: s/p lobectomy LLL COMPARISON: 08/27/2020 TECHNIQUE: PA and lateral. FINDINGS: Patient is status post left partial lobectomy. Two left-sided chest tubes are identified in stable position. Left mid to lower lobe opacities suggesting airspace disease and small amount of pleural fluid as well as small amount of subcutaneous emphysema in the left chest wall are again noted and similar to prior examination. Subtle blunting to the right costophrenic angle suggests small amount of right pleural fluid. Visualized portions of the mediastinum and cardiac silhouette are grossly normal/stable. Skeletal structures are grossly intact. IMPRESSION: Pleuroparenchymal changes involving the left hemithorax similar to prior examination. Suspected small right pleural effusion and trace passive atelectasis. <Electronically signed by Brendan Camara > 08/28/20 08
[2020-08-28] MEDS: FENTANYL/BUPIVACAINE/NACL BAG 250 ML EPIDURAL SCH (08:47)
[2020-08-28] MEDS: ceFAZolin SOD 1 GM in D5W MINI-BAG PLUS 50 ML IV SCH (08:52)
[2020-08-28] MEDS: HumaLOG INSULIN (NovoLOG) PER UNIT SC SCH ×4 (08:52→20:55)
[2020-08-28] MEDS: VENLAFAXINE **XR** 75MG CAPSULE PO SCH ×2 (08:52→20:46)
[2020-08-28] MEDS: CYANOCOBALAMIN 500 MCG TAB PO SCH (08:53)
[2020-08-28] MEDS: METOPROLOL TART 50 MG TAB PO SCH ×2 (08:53→20:45)
[2020-08-28] MEDS: VITAMIN D 1,000 INTERNATIONAL UNITS TABLET PO SCH (08:53)
[2020-08-28] MEDS: PANTOPRAZOLE 40MG TAB (PROTONIX) PO SCH (08:53)
[2020-08-28] MEDS: ASCORBIC ACID 500 MG TAB PO SCH (08:53)
[2020-08-28] MEDS: DOCUSATE SODIUM 100 MG CAP PO SCH ×2 (08:53→20:46)
[2020-08-28] MEDS: ASPIRIN 325 MG TAB PO SCH (08:53)
[2020-08-28] MEDS: HEPARIN SOD (PORCINE) 5000UNITS/ML 1ML VIAL/SYRINGE SC SCH ×2 (08:54→20:46)
[2020-08-28] MEDS: MOM 30ML SUSPENSION UDC PO SCH (08:54)
--- NOTE | 2020-08-28 11:29 | IPN ---
DATE: 08/27/2020 SUBJECTIVE: This is now Ms. Thakkar's first postoperative day. She had a significant amount of surgery. Her incisional pain is being well controlled although she complains of shoulder pain which is being treated with a heating pad. Her vital signs are stable with a maximum temperature of 98.3 and a heart rate that ranges between 75 and 88 in sinus rhythm, respiratory rate of 16-20 without the use of accessory muscles who is 91-98% saturated on two liters nasal cannula and her blood pressure is ranging between 135/68 to 111/57. Her intake and output for the past 24 hours was recorded as 2675 in and 845 out for a positivity of 1830 mL. She has had 300 mL out of the chest tube and there is a small air leak with forceful coughing. Her weight today is 113.3 kg compared to 109 kg yesterday. PHYSICAL EXAMINATION: On physical examination, her lungs have equal breath sounds on either side with some expiratory wheezing. Percussion is full to the diaphragm. Cardiac exam is without murmurs, clicks, gallops, or rubs. I cannot feel her point of maximal impulse (PMI). S1 and S2 are normal. Abdomen is soft and nontender. Bowel sounds are positive. There is no hepatomegaly, no costovertebral angle tenderness (CVA) tenderness. Extremities show no pretibial edema, no calf tenderness, no differential swelling of the upper extremities. Skin is warm, dry, and perfused without cyanosis or mottling including that of the nailbeds and knees. Neck is supple. There is no jugular venous distention. No subcutaneous emphysema. Trachea is midline. Mouth shows the mucous membranes to be pink and moist. Lips and gums show no lesions. There is no thrush. Eyes show her pupils to be equal and reactive. Extraocular movements intact. Sclerae are nonicteric. Neurologic shows II-XII intact. Normal gross motor, gross sensation intact. Gait is not tested. Psychiatric shows her to be awake, alert, and oriented times three with appropriate mood and affect and conversational. Her white count today is 9.9 with hemoglobin and hematocrit of 12.1 and 39.5 respectively. Platelet count is 275 and differential shows 68% neutrophils, 18% lymphocytes and 12% monocytes. There are no mature forms of toxic granulations. Her electrolytes are essentially normal with BUN and creatinine of 17 and 0.96, improved from 21 and 1.31 directly postoperatively. Glucose is 122 and calcium 8.0. She is on insulin sliding scale for her diabetes. Her chest x-ray today shows her lung fully expanded to the chest wall. There is atelectasis in the left lower hemithorax. There is volume loss from the lobectomy but without a mediastinal shift. Chest tube is in good place and there is minimal subcutaneous emphysema. IMPRESSION: 1. Postop day #1 status post left lower lobectomy. 2. Clinical stage IA squamous cell carcinoma, left lower lobe. 3. Diabetes. 4. Morbid obesity. 5. Coronary artery disease. 6. Cerebrovascular disease. 7. Depression. 8. Hyperlipidemia. PLAN AND DISCUSSION: I will continue her on suction today. I am going to leave her in the ICU because of her obesity. Nurses will be getting her up and around walking and ambulating today. All-in-all, she is doing very well and I am very pleased with her postoperative course so far. We will await pathology. PRUDENCIO
[2020-08-28] MEDS: ATORVASTATIN 20 MG TAB PO SCH (20:43)
[2020-08-28] MEDS: amLODIPine 10 MG TAB PO SCH (20:46)
[2020-08-28] MEDS: ACETAMINOPHEN TAB 650MG DOSE (2X325MG) PO PRN (20:58)
[2020-08-29] VITALS (26 sets, daily range): BP systolic 114–139; BP diastolic 57–78; O2SAT 84–100
[2020-08-29] MEDS: KETOROLAC 30 MG/ML 1ML VIAL IV SCH ×4 (01:08→18:33)
[2020-08-29] MEDS: LEVALBUTEROL 1.25 MG/0.5 ML CONCENTRATE NEB NEB SCH ×4 (01:51→19:07)
[2020-08-29 05:53] LABS: BASO # 0.1 10^3/uL (0.0-0.2); BASO % 0.7 % (0.0-1.0); EOS # 0.5 10^3/uL (0.0-0.5); EOS % 4.4 % (0.0-3.0); HEMATOCRIT 38.4 % (36.0-47.0); HEMOGLOBIN 11.9 g/dl (12.0-15.5); LYMPH # 2.6 10^3/uL (1.5-5.0); LYMPH % 21.6 % (24.0-44.0); MEAN CORPUSCULAR VOLUME 93.7 fl (80.0-96.0); MONO # 1.6 10^3/uL (0.0-0.8); MONO % 13.3 % (0.0-5.0); NEUTROPHILS # 7.2 10^3/uL (1.5-8.5); NEUTROPHILS % 59.6 % (36.0-66.0); PLATELET COUNT, AUTOMATED 285 10^3/uL (150-450); WHITE BLOOD COUNT 12.1 10^3/uL (4.0-10.0)
[2020-08-29 06:10] LABS: BLOOD UREA NITROGEN 18 MG/DL (7-18); CALCIUM LEVEL 8.5 MG/DL (8.8-10.2); CARBON DIOXIDE LEVEL 27 MEQ/L (21-32); CHLORIDE LEVEL 105 MEQ/L (98-107); GLOMERULAR FILTRATION RATE > 60.0 (>45); GLUCOSE, FASTING 120 MG/DL (70-100); POTASSIUM SERUM 3.9 MEQ/L (3.5-5.1); SODIUM LEVEL 138 MEQ/L (136-145)
[2020-08-29] MEDS: HumaLOG INSULIN (NovoLOG) PER UNIT SC SCH ×4 (07:30→21:00)
[2020-08-29] MEDS ORDERED: FUROSEMIDE 40MG/4ML VIAL (J1940) IV ONE (07:45)
--- NOTE | 2020-08-29 08:27 | REP ---
INDICATION: s/p lobectomy LLL COMPARISON: 08/28/2020 TECHNIQUE: PA and lateral. FINDINGS: Two left-sided chest tubes in stable position. Pleuroparenchymal opacities involving the left mid to lower lung zone are essentially unchanged. Small amount of subcutaneous emphysema in the left lateral chest wall appears minimally decreased. Remainder of the aerated lung lemons appears stable. IMPRESSION: Pleuroparenchymal opacities and postoperative changes involving the left mid to lower lung zone essentially unchanged. <Electronically signed by Brendan Camara > 08/29/20 0800
[2020-08-29] MEDS: MOM 30ML SUSPENSION UDC PO SCH (09:08)
[2020-08-29] MEDS: HEPARIN SOD (PORCINE) 5000UNITS/ML 1ML VIAL/SYRINGE SC SCH ×2 (09:08→21:02)
[2020-08-29] MEDS: ASCORBIC ACID 500 MG TAB PO SCH (09:08)
[2020-08-29] MEDS: VITAMIN D 1,000 INTERNATIONAL UNITS TABLET PO SCH (09:08)
[2020-08-29] MEDS: METOPROLOL TART 50 MG TAB PO SCH ×2 (09:09→21:02)
[2020-08-29] MEDS: PANTOPRAZOLE 40MG TAB (PROTONIX) PO SCH (09:10)
[2020-08-29] MEDS: ASPIRIN 325 MG TAB PO SCH (09:10)
[2020-08-29] MEDS: VENLAFAXINE **XR** 75MG CAPSULE PO SCH ×2 (09:10→21:02)
[2020-08-29] MEDS: CYANOCOBALAMIN 500 MCG TAB PO SCH (09:10)
[2020-08-29] MEDS: DOCUSATE SODIUM 100 MG CAP PO SCH ×2 (09:10→21:01)
[2020-08-29] MEDS: FENTANYL/BUPIVACAINE/NACL BAG 250 ML EPIDURAL SCH (09:35)
[2020-08-29] MEDS: amLODIPine 10 MG TAB PO SCH (21:01)
[2020-08-29] MEDS: ATORVASTATIN 20 MG TAB PO SCH (21:02)
--- NOTE | 2020-08-29 21:36 | IPN ---
PROGRESS NOTE DATE: 08/28/2020 SUBJECTIVE: This is now the second postoperative day for Mrs. Thakkar. Her pain is being well-controlled, although she still has some shoulder pain. She has an intermittent air leak seen by the nursing staff, although I do not see one on rounds. She is up sitting comfortably in a chair and conversational. OBJECTIVE: VITAL SIGNS: Show a T-max of 98.9 with heart rate ranging between 73 and 89, sinus rhythm. Respiratory rate 18 to 20 without the use of accessory muscles, 89% to 95% saturated on 2 liters nasal cannula. Blood pressure ranging between 137/63 to 107/63. INTAKE AND OUTPUT: Over the past 24 hours is recorded as 2463 in and 2020 out for a positivity of 440 mL. She has put 770 mL out the chest tube and there is no air leak on my rounds today. She weighed 111.3 kg today compared to 113.3 kg yesterday. LUNGS: She has rales and rhonchi on the left side with inspiratory crackles. Right side shows normal vesicular sounds. Percussion notes are full to the diaphragm as far as I can tell through her morbid obesity. CARDIAC: Without murmurs, clicks, gallops, or rubs. I cannot feel her PMI. S1, S2 are normal. ABDOMEN: Soft and nontender. Bowel sounds are positive. There is no hepatomegaly. No CVA tenderness. She is passing flatus, but she has not yet had a bowel movement. EXTREMITIES: Show no pretibial edema. No calf tenderness. No differential swelling of the upper extremities. SKIN: Warm, dry, and perfuse without cyanosis or mottling including that of the nail beds and knees. NECK: Supple. There is no jugular venous distention. No subcutaneous emphysema. Trachea is midline. Mouth shows the mucous membranes to be pink and moist. Lips and gums without lesions or thrush. EYES: Show her pupils to be equal and reactive. Extraocular movements are intact. Sclerae nonicteric. NEUROLOGIC: Shows II-XII intact. Normal gross motor, gross sensation intact. Gait is not tested. PSYCHIATRIC: Shows her to be awake, alert, and oriented x3 with appropriate mood and affect and conversational. LABORATORY DATA: Her white count today is 11.3 with a hemoglobin and hematocrit of 11.7 and 39.4 essentially unchanged from yesterday with a platelet count of 278,000 stable. Differential shows 63% neutrophils, 20% lymphocytes, 13% monocytes. There are no immature forms or toxic granulations. Her chemistries showed normal electrolytes with a BUN and creatinine of 18 and 0.98, glucose of 121, abdominal calcium of 8.4. IMAGING: Her chest x-ray today showed her lungs fully expand to the chest wall. There is some atelectasis in the left lower hemithorax. Chest tubes were in good place. There is volume loss on the left side with a curving of the trachea. She has minimal subcutaneous emphysema. IMPRESSION: 1. Postoperative day #2 status post left lower lobectomy. Final pathology pending. Clinical stage IA. 2. Morbid obesity. 3. Clinical stage IA squamous cell carcinoma left lower lobe. 4. Diabetes. 5. Coronary artery disease. 6. Cerebral vascular disease. 7. Depression. 8. Hyperlipidemia. PLAN AND DISCUSSION: I will continue her chest tubes on suction today. I will transfer her to the progressive care unit (PCU). Her final pathology is still pending. I will also diurese her today as she has put out 700 mL in the chest tube. Her potassium is acceptable and I will not replace her potassium at this point in time, as I am only going to give her 40 mg of Lasix.
[2020-08-30] VITALS (26 sets, daily range): BP systolic 107–138; BP diastolic 54–71; O2SAT 88–98
[2020-08-30] MEDS: KETOROLAC 30 MG/ML 1ML VIAL IV SCH ×5 (00:24→23:58)
[2020-08-30] MEDS: LEVALBUTEROL 1.25 MG/0.5 ML CONCENTRATE NEB NEB SCH ×4 (01:09→20:28)
[2020-08-30 04:42] LABS: BASO # 0.1 10^3/uL (0.0-0.2); BASO % 0.8 % (0.0-1.0); EOS # 0.8 10^3/uL (0.0-0.5); EOS % 6.8 % (0.0-3.0); HEMATOCRIT 37.9 % (36.0-47.0); HEMOGLOBIN 11.5 g/dl (12.0-15.5); MEAN CORPUSCULAR HEMOGLOBIN 28.2 pg (27.0-33.0); MEAN CORPUSCULAR HGB CONC 30.3 g/dl (32.0-36.5); MEAN CORPUSCULAR VOLUME 92.9 fl (80.0-96.0); MONO # 1.3 10^3/uL (0.0-0.8); MONO % 11.7 % (0.0-5.0); NEUTROPHILS # 6.2 10^3/uL (1.5-8.5); NEUTROPHILS % 54.3 % (36.0-66.0); PLATELET COUNT, AUTOMATED 329 10^3/uL (150-450); RED BLOOD COUNT 4.08 10^6/uL (4.00-5.40); WHITE BLOOD COUNT 11.4 10^3/uL (4.0-10.0)
[2020-08-30 04:54] LABS: BLOOD UREA NITROGEN 21 MG/DL (7-18); CALCIUM LEVEL 8.4 MG/DL (8.8-10.2); CARBON DIOXIDE LEVEL 29 MEQ/L (21-32); CHLORIDE LEVEL 105 MEQ/L (98-107); CREATININE FOR GFR 0.88 MG/DL (0.55-1.30); GLOMERULAR FILTRATION RATE > 60.0 (>45); GLUCOSE, FASTING 99 MG/DL (70-100); POTASSIUM SERUM 4.1 MEQ/L (3.5-5.1); SODIUM LEVEL 139 MEQ/L (136-145)
[2020-08-30] MEDS: HumaLOG INSULIN (NovoLOG) PER UNIT SC SCH ×4 (07:30→20:24)
[2020-08-30] MEDS: CYANOCOBALAMIN 500 MCG TAB PO SCH (08:29)
--- NOTE | 2020-08-30 08:29 | REP ---
INDICATION: s/p lobectomy LLL COMPARISON: 08/29/2020 TECHNIQUE: PA and lateral. FINDINGS: Postsurgical changes involving the left hemithorax again noted and similar to prior examination. 2 stable chest tubes are identified along with left mid to lower lobe pleuroparenchymal opacities and small amount of residual subcutaneous emphysema. Right hemithorax is clear. IMPRESSION: Left-sided pleuroparenchymal changes related to recent surgery similar to prior examination. <Electronically signed by Brendan Camara > 08/30/20 0895
[2020-08-30] MEDS: DOCUSATE SODIUM 100 MG CAP PO SCH ×2 (08:30→20:22)
[2020-08-30] MEDS: ASPIRIN 325 MG TAB PO SCH (08:30)
[2020-08-30] MEDS: VENLAFAXINE **XR** 75MG CAPSULE PO SCH ×2 (08:30→20:24)
[2020-08-30] MEDS: PANTOPRAZOLE 40MG TAB (PROTONIX) PO SCH (08:30)
[2020-08-30] MEDS: VITAMIN D 1,000 INTERNATIONAL UNITS TABLET PO SCH (08:30)
[2020-08-30] MEDS: METOPROLOL TART 50 MG TAB PO SCH ×2 (08:31→20:23)
[2020-08-30] MEDS: ASCORBIC ACID 500 MG TAB PO SCH (08:31)
[2020-08-30] MEDS: HEPARIN SOD (PORCINE) 5000UNITS/ML 1ML VIAL/SYRINGE SC SCH ×2 (08:32→20:22)
[2020-08-30] MEDS: MOM 30ML SUSPENSION UDC PO SCH (08:32)
[2020-08-30] MEDS ORDERED: FUROSEMIDE 40MG/4ML VIAL (J1940) IV ONE (09:45)
--- NOTE | 2020-08-30 15:15 | IPN ---
PROGRESS NOTE DATE: 08/30/2020 SUBJECTIVE: This is now the 4th post-operative day for Ms. Thakkar. She is doing quite well and her pain is being well controlled with the epidural. Her shoulder pain is abating. She is still putting out too much from the chest tube for me to remove it; however. She is up and ambulating. Her vital signs show a T-max of 98.7 with a heart rate that ranges between 72-75 in sinus rhythm, respiratory rate that is constant at 18 who is 93-95% saturating now on 2 liters nasal cannula and has a blood pressures ranging between 110/56 to 130/60. Her intake and output the past 24 hours has been recorded as 1760 in and 1910 out for a negatively of 150 mL. She has put out 410 mL from the chest tube. Her weight today is 111.3 kg compared to 110.9 kg yesterday. She did put out 1500 mL in urine yesterday in response to Lasix. PHYSICAL EXAMINATION: Lungs: She has some faint rales in the left lower hemithorax during inspiration. Percussion full to diaphragm. Cardiac: Without murmurs, click, gallops, rubs. I cannot feel PMI. S1 and S2 are normal. Abdomen: Soft, nontender, bowel sounds are positive. There is no hepatomegaly that I can appreciate through her obesity. There is no CVA tenderness. Extremities: No pretibial edema, no calf tenderness, no differential swelling of the upper extremities. Skin: Warm and dry and perfused without cyanosis or mottling including that of nailbeds and knees. Neck: Supple. There is no jugular venous distention, no subcutaneous emphysema, trachea is midline. HEENT: Mouth shows mucous membranes to be pink and moist. Lips, gums, tongue show no thrush. Eyes show her pupils to be equal and reactive, extraocular movements are intact, sclerae nonicteric. Neuro: CN II-XII intact with gross motor, gross sensation intact. Gait is not tested. Psychiatric: Shows her to be awake and alert, oriented times 3 with appropriate mood and affect and now conversational. LABORATORY DATA: White count today 11.4 essentially unchanged from yesterday with a hemoglobin and hematocrit of 11.5 and 37.9 again unchanged from yesterday, platelet count 329 and stable and differential shows 54% neutrophils, 26% lymphocytes, 11% monocytes. There are no immature forms or toxic granulations. Chemistries today showed normal electrolytes with a BUN and creatinine of 21 and 0.88, glucose 99, calcium 8.4. RADIOLOGY STUDIES: Her chest x-ray today shows the lung fully expanded to the chest wall. There is some atelectasis in the left costophrenic angle, but it is clearing. There is an ___ volume loss from the lobectomy. Chest tubes are in good place on the lateral chest x-ray. IMPRESSION: 1. Post-op day number 4 status post left lower lobectomy. 2. 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 3. Diabetes. 4. Morbid obesity. 5. Coronary artery disease. 6. Cerebral vascular disease. 7. Depression. 8. Hyperlipidemia. PLAN/DISCUSSION: I will continue her chest tube on suction. I will also diurese her today. I did walk up to pathology. I was surprised to see there was no one there. I suspect we therefore will not be obtaining any final results until at least Wednesday.
[2020-08-30] MEDS: FENTANYL/BUPIVACAINE/NACL BAG 250 ML EPIDURAL SCH (16:52)
[2020-08-30] MEDS: ATORVASTATIN 20 MG TAB PO SCH (20:22)
[2020-08-30] MEDS: amLODIPine 10 MG TAB PO SCH (20:24)
[2020-08-30] MEDS: ACETAMINOPHEN TAB 650MG DOSE (2X325MG) PO PRN (22:57)
[2020-08-31] VITALS (27 sets, daily range): BP systolic 112–155; BP diastolic 56–73; O2SAT 79–96
[2020-08-31] MEDS: LEVALBUTEROL 1.25 MG/0.5 ML CONCENTRATE NEB NEB SCH ×4 (01:17→20:10)
[2020-08-31 05:19] LABS: BASO # 0.1 10^3/uL (0.0-0.2); BASO % 0.8 % (0.0-1.0); EOS # 0.9 10^3/uL (0.0-0.5); EOS % 8.9 % (0.0-3.0); HEMATOCRIT 36.7 % (36.0-47.0); HEMOGLOBIN 11.5 g/dl (12.0-15.5); LYMPH # 2.6 10^3/uL (1.5-5.0); LYMPH % 25.5 % (24.0-44.0); MEAN CORPUSCULAR HEMOGLOBIN 28.9 pg (27.0-33.0); MEAN CORPUSCULAR HGB CONC 31.3 g/dl (32.0-36.5); MEAN CORPUSCULAR VOLUME 92.2 fl (80.0-96.0); MONO # 1.4 10^3/uL (0.0-0.8); MONO % 13.5 % (0.0-5.0); NEUTROPHILS # 5.2 10^3/uL (1.5-8.5); NEUTROPHILS % 50.8 % (36.0-66.0); PLATELET COUNT, AUTOMATED 353 10^3/uL (150-450); RED BLOOD COUNT 3.98 10^6/uL (4.00-5.40); WHITE BLOOD COUNT 10.2 10^3/uL (4.0-10.0)
[2020-08-31 05:39] LABS: BLOOD UREA NITROGEN 25 MG/DL (7-18); CALCIUM LEVEL 8.7 MG/DL (8.8-10.2); CARBON DIOXIDE LEVEL 31 MEQ/L (21-32); CHLORIDE LEVEL 104 MEQ/L (98-107); CREATININE FOR GFR 0.86 MG/DL (0.55-1.30); GLOMERULAR FILTRATION RATE > 60.0 (>45); GLUCOSE, FASTING 108 MG/DL (70-100); SODIUM LEVEL 139 MEQ/L (136-145)
[2020-08-31] MEDS: KETOROLAC 30 MG/ML 1ML VIAL IV SCH ×3 (06:48→20:30)
[2020-08-31] MEDS: HumaLOG INSULIN (NovoLOG) PER UNIT SC SCH ×4 (07:30→20:48)
--- NOTE | 2020-08-31 08:11 | REP ---
INDICATION: s/p lobectomy LLL COMPARISON: 08/30/2020, 08/29/2020 TECHNIQUE: PA and lateral. FINDINGS: Two left-sided chest tubes and lower lobe pleuroparenchymal changes including parenchymal opacities and moderate pleural effusion essentially unchanged. Decreased subcutaneous emphysema suggested. Trace right basilar atelectasis cannot be excluded. IMPRESSION: 1. Left lower lobe postsurgical/pleuroparenchymal changes remain essentially stable. 2. Trace right basilar atelectasis suggested. <Electronically signed by Brendan Camara > 08/31/20 0893
[2020-08-31] MEDS: MOM 30ML SUSPENSION UDC PO SCH (08:25)
[2020-08-31] MEDS: VITAMIN D 1,000 INTERNATIONAL UNITS TABLET PO SCH (08:26)
[2020-08-31] MEDS: VENLAFAXINE **XR** 75MG CAPSULE PO SCH ×2 (08:26→20:31)
[2020-08-31] MEDS: PANTOPRAZOLE 40MG TAB (PROTONIX) PO SCH (08:26)
[2020-08-31] MEDS: ASCORBIC ACID 500 MG TAB PO SCH (08:26)
[2020-08-31] MEDS: HEPARIN SOD (PORCINE) 5000UNITS/ML 1ML VIAL/SYRINGE SC SCH ×2 (08:26→20:30)
[2020-08-31] MEDS: DOCUSATE SODIUM 100 MG CAP PO SCH ×2 (08:26→20:31)
[2020-08-31] MEDS: ASPIRIN 325 MG TAB PO SCH (08:26)
[2020-08-31] MEDS: CYANOCOBALAMIN 500 MCG TAB PO SCH (08:27)
[2020-08-31] MEDS: METOPROLOL TART 50 MG TAB PO SCH ×2 (08:27→20:31)
[2020-08-31] MEDS ORDERED: FUROSEMIDE 40MG/4ML VIAL (J1940) IV ONE (10:00)
[2020-08-31] MEDS: PERCOCET 5MG/325MG TAB PO PRN (13:11)
[2020-08-31] MEDS: ATORVASTATIN 20 MG TAB PO SCH (20:30)
[2020-08-31] MEDS: amLODIPine 10 MG TAB PO SCH (20:31)
[2020-09-01] VITALS (10 sets, daily range): BP systolic 122–135; BP diastolic 58–63; O2SAT 92–96
[2020-09-01] MEDS: LEVALBUTEROL 1.25 MG/0.5 ML CONCENTRATE NEB NEB SCH ×3 (01:34→13:04)
[2020-09-01] MEDS: KETOROLAC 30 MG/ML 1ML VIAL IV SCH ×2 (01:48→09:13)
[2020-09-01] MEDS: PERCOCET 5MG/325MG TAB PO PRN ×3 (02:45→13:37)
[2020-09-01 04:05] LABS: BASO # 0.1 10^3/uL (0.0-0.2); EOS # 0.9 10^3/uL (0.0-0.5); EOS % 8.3 % (0.0-3.0); HEMATOCRIT 36.9 % (36.0-47.0); HEMOGLOBIN 11.5 g/dl (12.0-15.5); LYMPH # 2.2 10^3/uL (1.5-5.0); LYMPH % 21.4 % (24.0-44.0); MEAN CORPUSCULAR HEMOGLOBIN 28.6 pg (27.0-33.0); MEAN CORPUSCULAR HGB CONC 31.2 g/dl (32.0-36.5); MEAN CORPUSCULAR VOLUME 91.8 fl (80.0-96.0); MONO # 1.5 10^3/uL (0.0-0.8); NEUTROPHILS # 5.7 10^3/uL (1.5-8.5); NEUTROPHILS % 54.8 % (36.0-66.0); PLATELET COUNT, AUTOMATED 370 10^3/uL (150-450); RED BLOOD COUNT 4.02 10^6/uL (4.00-5.40); WHITE BLOOD COUNT 10.4 10^3/uL (4.0-10.0)
[2020-09-01 04:23] LABS: BLOOD UREA NITROGEN 20 MG/DL (7-18); CALCIUM LEVEL 8.3 MG/DL (8.8-10.2); CARBON DIOXIDE LEVEL 29 MEQ/L (21-32); CHLORIDE LEVEL 103 MEQ/L (98-107); CREATININE FOR GFR 0.96 MG/DL (0.55-1.30); GLOMERULAR FILTRATION RATE > 60.0 (>45); GLUCOSE, FASTING 120 MG/DL (70-100); POTASSIUM SERUM 3.7 MEQ/L (3.5-5.1); SODIUM LEVEL 140 MEQ/L (136-145)
[2020-09-01] MEDS: HumaLOG INSULIN (NovoLOG) PER UNIT SC SCH ×2 (07:30→12:00)
--- NOTE | 2020-09-01 08:32 | REP ---
INDICATION: s/p lobectomy LLL COMPARISON: 08/31/2020 TECHNIQUE: PA and lateral. FINDINGS: Visualized portions of the mediastinum are stable. Previously noted left-sided chest tubes have been removed. Left-sided pleuroparenchymal changes including hydropneumothorax and parenchymal opacities essentially unchanged. Right hemithorax is relatively clear. IMPRESSION: Postsurgical pleuroparenchymal changes involving the left hemithorax stable. Left-sided chest tubes have been removed. No new acute process appreciated. <Electronically signed by Brendan Camara > 09/01/20 0835
[2020-09-01] MEDS: DOCUSATE SODIUM 100 MG CAP PO SCH (09:00)
[2020-09-01] MEDS: MOM 30ML SUSPENSION UDC PO SCH (09:00)
[2020-09-01] MEDS: ASCORBIC ACID 500 MG TAB PO SCH (09:14)
[2020-09-01] MEDS: ASPIRIN 325 MG TAB PO SCH (09:14)
[2020-09-01] MEDS: VENLAFAXINE **XR** 75MG CAPSULE PO SCH (09:14)
[2020-09-01] MEDS: VITAMIN D 1,000 INTERNATIONAL UNITS TABLET PO SCH (09:14)
[2020-09-01] MEDS: CYANOCOBALAMIN 500 MCG TAB PO SCH (09:15)
[2020-09-01] MEDS: METOPROLOL TART 50 MG TAB PO SCH (09:15)
[2020-09-01] MEDS: PANTOPRAZOLE 40MG TAB (PROTONIX) PO SCH (09:15)
[2020-09-01] MEDS: HEPARIN SOD (PORCINE) 5000UNITS/ML 1ML VIAL/SYRINGE SC SCH (09:16)
[2020-09-01] MEDS ORDERED: PERCOCET PO (10:10)
[2020-09-01] MEDS ORDERED: FUROSEMIDE 40MG/4ML VIAL (J1940) IV ONE (10:15)
--- NOTE | 2020-09-02 14:07 | DSES ---
DISCHARGE SUMMARY DATE OF ADMISSION: 08/26/2020 DATE OF DISCHARGE: 09/01/2020 DISCHARGE DIAGNOSES: 1. Postop day #6 status post left lower lobectomy. 2. 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 3. Diabetes. 4. Morbid obesity. 5. Coronary artery disease. 6. Cerebrovascular disease. 7. Depression. 8. Hyperlipidemia. HOSPITAL COURSE: The patient is a 65-year-old white female who was noted to have a left lower lobe lesion which was found by happenstance when she twisted the right side of her chest for which she underwent a chest x-ray. This was seen and was followed up with a CT scan. Diagnosis after needle biopsy was squamous cell carcinoma. This was judged to be a clinical stage 1A cancer. She was, therefore, taken to the operating room where she had a left lower lobectomy. The operation was essentially uncomplicated except for her morbid obesity. She had a benign postoperative course with her air leak stopping on postop day #3. She was diuresed, and her chest tube output also decreased. Pain was well controlled with an epidural. Because of the holiday weekend, the pathology is still pending. DISCHARGE MEDICATIONS: She is being discharged on her home medications which include: 1. Ventolin two puffs q.i.d. p.r.n. shortness of breath 2. Amlodipine 10 mg at bedtime. 3. Vitamin C 500 mg q.day. 4. Aspirin 325 mg q.day. 5. Atorvastatin 80 mg at bedtime. 6. Vitamin B12 500 mcg q.day. 7. Esomeprazole 40 mg p.o. b.i.d. 8. Famotidine 20 mg b.i.d. p.r.n. heartburn. 9. Lasix 40 mg p.r.n. edema. 10. Victoza 1.8 mg subcu q.day. 11. Meloxicam 15 mg q.day. 12. Metoprolol 50 mg b.i.d. 13. Multivitamins one q.day. 14. Venlafaxine 75 mg b.i.d. 15. Percocet 5/325 q.4 hours p.r.n. pain. DISCHARGE INSTRUCTIONS: Patient will return to see me in one week with a chest x-ray and postoperative follow up. I have asked her not to drive until she comes back to see me. She will go home on her regular preoperative diet.
--- NOTE | 2020-09-02 16:03 | IPN ---
PROGRESS NOTE DATE: 08/31/2020 SUBJECTIVE: This is now the 5th post-operative day for Ms. Thakkar. She is doing quite well and her pain is being well controlled with the epidural. Her vital signs show a T-max of 97.1 with a heart rate that ranges between 69-77, in sinus rhythm in sinus rhythm, respiratory rate 16-18 without the use of accessory muscles, his saturations vary between 88 and 96% on 1 liter nasal cannula. She dropped down to 88% while sleeping last night. Her blood pressure is ranging between 132/70 to 125/61. Her intake and output the past 24 hours has been recorded as 1570 in and 2185 out for a negativity of 615 mL. She has put out 210 mL in the chest tube and there is no air leak. weight today is 110.2 kg compared to 111.3 kg yesterday. PHYSICAL EXAMINATION: Lungs: Normal vesicular sounds with some faint rales in the right lower hemithorax. Percussion was noted to be full to the diaphragm. Cardiac: Without murmurs, click, gallops, rubs. I cannot feel her PMI. S1 and S2 normal. Abdomen: Soft, nontender, bowel sounds are positive. There is no hepatomegaly that I can feel through her obesity. There is no CVA tenderness. Extremities: No pretibial edema, no calf tenderness, no differential swelling of the upper extremities. Skin: Warm and dry and perfused without cyanosis or mottling including that of nailbeds and knees. Neck: Supple. There is no jugular venous distention, no subcutaneous emphysema, trachea is midline. HEENT: Mouth shows mucous membranes to be pink and moist. Lips, gums, tongue show no thrush. Eyes show her pupils to be equal and reactive, extraocular movements are intact, sclerae nonicteric. Neuro: CN II-XII intact with gross motor, gross sensation intact. Gait is not tested. Psychiatric: Shows her to be awake and alert, oriented times 3 with appropriate mood and affect and conversational. LABORATORY DATA: White count today 10.2, hemoglobin and hematocrit 11.5 and 36.7, platelet count 353 and stable. Differential shows 50% neutrophils, 25% lymphocytes, 13% monocytes. There are no ___, no ___. Electrolytes are normal today with a BUN and creatinine of 25 and 0.86, glucose 108, calcium 8.7. RADIOLOGY STUDIES: Her chest x-ray shows her lungs fully expanded to the chest wall. There is still some atelectasis in the right costophrenic angle. Chest tube is in good place. There looks to be an air-fluid level although I do not quite appreciate fluid in the upper reaches of the cupula probably secondary to lack of complete lung expansion. I see no infiltrates. IMPRESSION: 1. Post-operative day number 5 status post left lobectomy. 2. Clinical stage I-a squamous carcinoma left lower lobe, pathology still pending. 3. Diabetes. 4. Morbid obesity. 5. Coronary artery disease. 6. Cerebral vascular disease. 7. Depression. 8. Hyperlipidemia. PLAN/DISCUSSION: I will discontinue her chest tube today. We will also discontinue her Sands and wean the epidural while giving her oral pain control. If all goes well I hope to discharge her tomorrow.
--- NOTE | 2020-09-04 16:10 | IPN ---
PROGRESS NOTE DATE: 09/01/2020 02:04:00 pm SUBJECTIVE: This is now the third postoperative day for Mrs. Thakkar. She has been moved into the PCU and is doing quite well. She was able to ambulate today. She is a little bit short of breath with ambulation however. She did diurese well from her Lasix yesterday. PHYSICAL EXAMINATION: VITAL SIGNS: T-max 97.3 with heart rate that ranges between 68 and 95 and in sinus rhythm, respiratory rate 18 to 20 without use of accessory muscles, who is 88% to 100% saturated on 3 liters nasal cannula, and blood pressure ranging between 139/75 to 114/58. INTAKE AND OUTPUT: For the past 24 hours has been recorded as 1,422 in and 2,555 out for a negativity of 1,100 cc. She has put 380 cc out the chest tube. Her weight today is 110.9 kilos compared to 111.3 kilos yesterday. LUNGS: She has coarse rales and rhonchi on the left side with normal vesicular sounds on the right. Percussion note is full to the diaphragm on both sides. CARDIAC: Without murmurs, clicks, gallops or rubs. I cannot feel her PMI. S1, S2 are normal. ABDOMEN: Soft, nontender. Bowel sounds are positive. There is no hepatomegaly. No CVA tenderness. EXTREMITIES: Show no pretibial edema. No calf tenderness. No differential swelling of the upper extremities. SKIN: Warm, dry, and perfused, without cyanosis or mottling including that of the nail beds and knees. NECK: Supple. There is no jugular venous distention. No subcutaneous emphysema. Trachea is midline. Mouth shows the mucous membranes to be pink and moist. Lips and gums without lesions or thrush. EYES: Show her pupils to be equal and reactive. Extraocular movements are intact. Sclerae anicteric. NEUROLOGIC: Shows II-XII intact. Normal gross motor, gross sensation intact. Gait is not tested. PSYCHIATRIC: Shows her to be awake, alert, and oriented x3 with appropriate mood and affect and conversational. LABORATORY DATA: White count today 12.1 and 11.3 yesterday. Hemoglobin and hematocrit today 11.9 and 38.4; unchanged from yesterday with platelet count 285,000. Differential shows 59% neutrophils, 21% lymphocytes, 13% monocytes. There are no immature forms or toxic granulations. Chemistries today show normal electrolytes with BUN and creatinine 18 and 0.9. Glucose 120 and calcium 8.5. IMAGING STUDIES: Chest x-ray today shows her lung plate extends the chest wall. There are still some blunting of the left costophrenic angle with volume loss from the lobectomy. Chest tube is in good place both anteriorly and posteriorly. There is very little subcutaneous emphysema. There was no air leak from her chest tube today. IMPRESSION: 1. Postoperative day #3 status post left lower lobectomy. 2. Clinical stage 1A squamous cell carcinoma. 3. Diabetes. 4. Morbid obesity. 5. Coronary artery disease. 6. Cerebral vascular disease. 7. Depression. 8. Hyperlipidemia. PLAN/DISCUSSION: I will continue her chest tube on suction today. I will also diurese her again with Lasix. I am gratified that her air leak has stopped. As soon as the chest tube output acceptable value in and around 200, I will remove it and think about sending her home.
== END 2020-09-01 14:04 | disposition home or self-care (01) | DRG 164 ==
LOC: M OR 06:18 → M ICU 14:22 → M PCU 08-28 15:17
PROVIDERS: ADMIT Thoracic Surgery (Cardiothoracic Vascular Surgery); ATTEND Thoracic Surgery (Cardiothoracic Vascular Surgery)
PROC: 0BCG8ZZ Extirpation of Matter from Left Upper Lung Lobe, Via Natural or Artificial Opening Endoscopic (ICD-10-PCS; 2020-08-26)
PROC: 02B Heart and Great Vessels, Excision (ICD-10-PCS; 2020-08-26)
PROC: 0WBC0ZX Excision of Mediastinum, Open Approach, Diagnostic (ICD-10-PCS; 2020-08-26)
PROC: 0BBG0ZZ Excision of Left Upper Lung Lobe, Open Approach (ICD-10-PCS; principal; 2020-08-26 07:30)
DX: C34.32 Malignant neoplasm of lower lobe, left bronchus or lung (principal); Z68.41 Body mass index [BMI] 40.0-44.9, adult; E66.01 Morbid (severe) obesity due to excess calories; E11.9 Type 2 diabetes mellitus without complications; I25.10 Atherosclerotic heart disease of native coronary artery without angina pectoris; I65.23 Occlusion and stenosis of bilateral carotid arteries; F32.9 Major depressive disorder, single episode, unspecified; J44.9 Chronic obstructive pulmonary disease, unspecified; E78.5 Hyperlipidemia, unspecified; G47.33 Obstructive sleep apnea (adult) (pediatric); Z87.891 Personal history of nicotine dependence; Z95.5 Presence of coronary angioplasty implant and graft; Z79.82 Long term (current) use of aspirin; Z79.899 Other long term (current) drug therapy

== ENCOUNTER → 2020-09-09 | Outpatient (CLI) | payer MEDICARE, OTHER ==
[~2020-09-09] MED LIST changes: +CYAN500T14 PO; -CYAN500T8 PO; -LIDOCAINE 1% MDV 20ML VIAL SQ PRN; -LR 1,000 ML IV ONE; -MUPIROCIN 2% OINT 22 GM TUBE TOP ONE; +PERCOCET PO; -ceFAZolin SOD 2 GM in IV 1 EA IV ONE
--- NOTE | 2020-09-09 10:58 | REPPI ---
INDICATION: MALIGNANT NEOPLASM OF LOWER LOBE, LEFT BRONCHUS OR LUNG.. COMPARISON: Comparison chest x-ray September 01, 2020. TECHNIQUE: Two views.. FINDINGS: There is a large extensive area of parenchymal infiltrate in the left lower lobe distribution similar to the prior study. There is pleural thickening along the left lower lateral chest wall and blunting of the left lateral and posterior pleural angles. Most of the left hemidiaphragm is obscured. There is some volume loss in left hemithorax as well. These findings are unchanged. Heart is not felt to be enlarged. Coronary artery stent material is visible overlying the heart. The right lung remains clear. There are degenerative changes in the thoracic spine. IMPRESSION: Post thoracotomy partial pneumonectomy changes on the left. Extensive infiltrate in the left lower hemithorax. Prior coronary artery stents. Little changed from September 01, 2020.. <Electronically signed by Octaviano Kern > 09/09/20 1056
== END ==
LOC: M PLAIMG 08:29
PROVIDERS: ATTEND Thoracic Surgery (Cardiothoracic Vascular Surgery)
DX: C34.32 Malignant neoplasm of lower lobe, left bronchus or lung (principal); Z95.1 Presence of aortocoronary bypass graft; Z90.2 Acquired absence of lung [part of]

== ENCOUNTER → 2020-09-19 | Outpatient (CLI) | payer MEDICARE, OTHER ==
--- NOTE | 2020-09-19 09:19 | REPPI ---
INDICATION: MALIGNANT NEOPLASM LEFT LOWER LOBE. COMPARISON: PA and lateral chest studies dated 09/01/2020 and 09/09/2020 TECHNIQUE: PA and lateral chest FINDINGS: Patient is reportedly status post partial left pneumonectomy. There is a large focal area of parenchymal density inferiorly in the left hemithorax, unchanged from both prior studies. The left upper lobe is clear and unchanged. Right lung is clear and unchanged. The left cardiac margin is obscured and cardiac size cannot be assessed. The stephen, mediastinum, and skeletal structures are unremarkable. IMPRESSION: Large focal area of parenchymal density inferiorly in the left hemithorax, unchanged from both prior studies. <Electronically signed by Du Hinds > 09/19/20 0915
== END ==
LOC: M PLAIMG 08:56
PROVIDERS: ATTEND Thoracic Surgery (Cardiothoracic Vascular Surgery)
DX: C34.32 Malignant neoplasm of lower lobe, left bronchus or lung (principal)

== ENCOUNTER → 2020-09-23 | Outpatient (CLI) | payer MEDICARE, OTHER ==
--- NOTE | 2020-09-23 08:21 | REP ---
INDICATION: PNEUMONIA COMPARISON: 04/30/2020 TECHNIQUE: Axial noncontrast images from the thoracic inlet to the upper abdomen with coronal and sagittal reformations. This CT examination was performed using the following dose reduction techniques: Automated exposure control, adjustment of mA and/or kv according to the patient's size, and use of iterative reconstruction technique. FINDINGS: There is evidence for prior left lower lobe resection. The current examination demonstrates a moderate left-sided pleural effusion with a small loculated component along the medial left apex/upper hemithorax as well as moderate interstitial and alveolar infiltrates primarily involving the basilar portion of the left lung consistent with pneumonia. Minimal reactive adenopathy is suggested. The right hemithorax is relatively well aerated, stable and essentially clear. The tracheobronchial tree is relatively patent. There is no evidence for pneumothorax. Further evaluation of the mediastinum demonstrates atherosclerotic changes to the thoracic aorta and coronary arteries without aortic aneurysm or cardiomegaly and postsurgical changes at the left hilum consistent with the known left lower lobe resection. Thyroid gland is grossly unremarkable. Skeletal structures demonstrate age-related changes without acute osseous abnormality. Limited upper abdomen demonstrates normal bilateral adrenal glands. IMPRESSION: 1. Moderate left-sided pleural effusion with a small loculated apical-medial component as well as moderate basilar airspace disease consistent with superimposed pneumonia. Correlation and follow-up to resolution recommended. 2. Postsurgical changes consistent with left lower lobe resection. <Electronically signed by Brendan Camara > 09/23/20 [id number]
== END ==
LOC: M RAD 07:36
PROVIDERS: ATTEND Thoracic Surgery (Cardiothoracic Vascular Surgery)
DX: J18.9 Pneumonia, unspecified organism (principal); J90 Pleural effusion, not elsewhere classified; Z90.2 Acquired absence of lung [part of]

== ENCOUNTER → 2020-09-30 | Outpatient (REF) | payer MEDICARE, OTHER ==
[2020-09-30 17:33] LABS: PLATELET COUNT, AUTOMATED 494 10^3/uL (150-450)
[2020-09-30 17:44] LABS: INR 0.97; PARTIAL THROMBOPLASTIN TIME 29.6 SECONDS (24.2-38.5); PROTHROMBIN TIME 13.1 SECONDS (12.5-14.3)
== END ==
LOC: M LAB REF 16:39
PROVIDERS: ATTEND Thoracic Surgery (Cardiothoracic Vascular Surgery)
DX: Z01.812 Encounter for preprocedural laboratory examination (principal); J90 Pleural effusion, not elsewhere classified; C34.32 Malignant neoplasm of lower lobe, left bronchus or lung

== ENCOUNTER → 2020-10-01 | Outpatient (CLI) | payer MEDICARE, OTHER ==
--- NOTE | 2020-10-01 10:16 | REP ---
INDICATION: POST LEFT THORA, 2 VIEW. COMPARISON: Comparison chest x-ray is from September 01, 2020.. TECHNIQUE: Two views. FINDINGS: There is no evidence of pneumothorax. There is blunting of the left lateral pleural angle. Some blunting is seen posteriorly on the lateral film. The blunting is slightly improved from the comparison study of September 01, 2020. Right lung remains clear. IMPRESSION: Post left thoracentesis. No complication seen. <Electronically signed by Octaviano Kern > 10/01/20 1017
[2020-10-01 10:35] LABS: APPEARANCE, BODY FLUID HAZY (CLEAR); PLEURAL FL COLOR YELLOW (COLORLESS); SOURCE, BODY FLUID PLEURAL
[2020-10-01 10:44] LABS: PH BODY FLUID 7.626 UNITS (NOT ESTABLISHED); SOURCE, BODY FLUID pH PLEURAL
[2020-10-01 10:54] LABS: AMYLASE, BODY FLUID 63 U/L (NOT ESTABLISHED); LDH, BODY FLUID 172 U/L (NOT ESTABLISHED); SOURCE, BODY FLUID AMYLASE PLEURAL; SOURCE, BODY FLUID GLUCOSE PLEURAL; SOURCE, BODY FLUID LDH PLEURAL; SOURCE, BODY FLUID TOT PROTEIN PLEURAL; TOTAL PROTEIN, BODY FLUID 4.7 G/DL (NOT ESTABLISHED)
[2020-10-01 11:37] VITALS: BP 134/58
--- NOTE | 2020-10-01 16:31 | REP ---
INDICATION: LT PLEURAL EFFUSION. COMPARISON: None. TECHNIQUE: The images were reviewed with Dr. Kern. The risks and benefits of the procedure were explained to the patient and informed consent was obtained. The left pleural effusion was localized using ultrasound guidance. The skin was prepped and draped in a sterile fashion. 1% lidocaine was used as a local anesthetic. Using ultrasound guidance an 8 Marshallese multi side hole catheter was inserted using trocar technique. 320 cc of yellow fluid was withdrawn with a sample sent to the lab for analysis. FINDINGS: None IMPRESSION: Ultrasound-guided left thoracentesis yielding 320 cc of yellow fluid. <Electronically signed by Jerry Melendez > 10/01/20 1611 <Electronically signed by Octaviano Kern > 10/01/20 1628
== END ==
LOC: M IRPRO 09:14
PROVIDERS: ATTEND Thoracic Surgery (Cardiothoracic Vascular Surgery)
DX: J90 Pleural effusion, not elsewhere classified (principal); C34.32 Malignant neoplasm of lower lobe, left bronchus or lung

== ENCOUNTER → 2020-10-10 | Outpatient (CLI) | payer MEDICARE, OTHER ==
--- NOTE | 2020-10-10 10:15 | REPPI ---
INDICATION: MALIGNANT NEPLASM LLL, PLEURAL EFFUSION COMPARISON: 09/19/2020 TECHNIQUE: PA and lateral. FINDINGS: Left lower lobe airspace disease and moderate pleural effusion consistent with pneumonia and essentially unchanged compared to prior examination. Aerated left upper lobe and right hemithorax appear clear. No pneumothorax. Mediastinum and cardiac silhouette are incompletely evaluated due to overlying opacities. Skeletal structures are intact. IMPRESSION: Stable left lower lobe opacity and small to moderate pleural effusion. <Electronically signed by Brendan Camara > 10/10/20 1011
== END ==
LOC: M PLAIMG 09:48
PROVIDERS: ATTEND Thoracic Surgery (Cardiothoracic Vascular Surgery)
DX: C34.32 Malignant neoplasm of lower lobe, left bronchus or lung (principal); J90 Pleural effusion, not elsewhere classified

== ENCOUNTER → 2020-10-22 | Outpatient (CLI) | payer MEDICARE, OTHER ==
[~2020-10-22] MED LIST changes: +ISOS1TAB36 PO; -ISOS60TA2 PO; -LISI-538 PO; +LISI20TA33 PO
--- NOTE | 2020-10-22 14:02 | REPPI ---
INDICATION: PLEURAL EFFUSION, MALIGNANT NEOPLASM LLL, PNEUMONIA. COMPARISON: Comparison chest x-ray 10 October 2020. TECHNIQUE: Two views.. FINDINGS: There is blunting of the left lateral and posterior pleural angles indicating left-sided pleural effusion. This is felt to be unchanged. There is evidence of parenchymal infiltrate in the left mid lung zone on the frontal view overlying the spine on the lateral radiograph. This is also unchanged. Coronary artery stent material is visible overlying the heart on the lateral radiograph as before. Heart is not felt to be enlarged. Thoracic aorta is somewhat calcific. There is a right cervical rib noted. The right lung remains clear. IMPRESSION: Left pleural effusion and left lung infiltrate radiographically unchanged. Some volume loss persists in the left hemithorax.. <Electronically signed by Octaviano Kern > 10/22/20 [id number]
== END ==
LOC: M PLAIMG 12:36
PROVIDERS: ATTEND Thoracic Surgery (Cardiothoracic Vascular Surgery)
DX: J90 Pleural effusion, not elsewhere classified (principal); C34.32 Malignant neoplasm of lower lobe, left bronchus or lung; J18.9 Pneumonia, unspecified organism

== ENCOUNTER → 2020-10-29 | Outpatient (CLI) | payer MEDICARE, OTHER ==
--- NOTE | 2020-10-29 11:32 | REP ---
INDICATION: CAROTID STENOSIS COMPARISON: None. TECHNIQUE: Real-time ultrasound evaluation and duplex Doppler interrogation of the extracranial carotid vasculature is performed. FINDINGS: Antegrade flow is observed in both vertebral arteries. Right carotid: The right common carotid artery shows diffuse intimal thickening but is otherwise unremarkable. Mild to moderate mixed plaquing in the right carotid bulb and proximal ICA on two-dimensional scanning. Color flow and spectral Doppler interrogation are unremarkable on the right. Velocity chart right carotid: Right CCA PSV: 80 cm/S Right ICA PSV: 127 cm/S Right ICA EDV: 29 cm/S Right ECA PSV: 79 cm/S Right ICA/CCA ratio: 2.5 Left carotid: The left common carotid artery shows diffuse intimal thickening but is otherwise unremarkable. There is mild to moderate mixed plaquing in the left carotid bulb and proximal ICA on two-dimensional scanning. Color flow and spectral Doppler interrogation are unremarkable on the left. Velocity chart left carotid: Left CCA PSV: 59 cm/S Left ICA PSV: 271 cm/S Left ICA EDV: 90 cm/S Left ECA PSV: 69 cm/S Left ICA/CCA ratio: 4.6 IMPRESSION: 50-69 % category narrowing in the right internal carotid artery by Doppler velocity criteria. Greater than 70% category narrowing in the left ICA by Doppler velocity criteria. <Electronically signed by Octaviano Kern > 10/29/20 [id number]
== END ==
LOC: M RAD 10:14
PROVIDERS: ATTEND Physician Assistant
DX: I65.23 Occlusion and stenosis of bilateral carotid arteries (principal); Z87.891 Personal history of nicotine dependence

== ENCOUNTER → 2020-10-31 | Outpatient (CLI) | payer MEDICARE, OTHER ==
[~2020-10-31] MED LIST changes: -ISOS1TAB36 PO; +ISOS60TA2 PO; +LISI-538 PO; -LISI20TA33 PO
--- NOTE | 2020-10-31 09:44 | REPPI ---
INDICATION: PLEURAL EFFUSION/MALIGNANT NEOPLASM OF LEFT LL/PNEUMONIA COMPARISON: 10/22/2020 TECHNIQUE: PA and lateral. FINDINGS: The mediastinum and cardiac silhouette are normal/stable. Left lower lobe opacity and small to moderate pleural effusion are again identified and relatively similar to prior examination. No new acute pleuroparenchymal process appreciated. Right hemithorax is clear. IMPRESSION: Left lower lobe opacity and small to moderate pleural effusions similar to prior examination. <Electronically signed by Brendan Camara > 10/31/20 0941
== END ==
LOC: M PLAIMG 08:55
PROVIDERS: ATTEND Thoracic Surgery (Cardiothoracic Vascular Surgery)
DX: R91.8 Other nonspecific abnormal finding of lung field (principal); J90 Pleural effusion, not elsewhere classified; C34.32 Malignant neoplasm of lower lobe, left bronchus or lung; J18.9 Pneumonia, unspecified organism

== ENCOUNTER → 2020-11-07 | Outpatient (CLI) | payer MEDICARE, OTHER ==
[2020-11-07 13:15] LABS: PLATELET COUNT, AUTOMATED 336 10^3/uL (150-450)
[2020-11-07 13:24] LABS: INR 0.89; PROTHROMBIN TIME 12.2 SECONDS (12.5-14.3)
[2020-11-07 13:25] LABS: PARTIAL THROMBOPLASTIN TIME 26.4 SECONDS (24.2-38.5)
== END ==
LOC: M WUC 09:34
PROVIDERS: ATTEND Thoracic Surgery (Cardiothoracic Vascular Surgery)
DX: Z01.812 Encounter for preprocedural laboratory examination (principal); Z79.899 Other long term (current) drug therapy

== ENCOUNTER → 2020-11-11 | Outpatient (CLI) | payer MEDICARE, OTHER ==
[~2020-11-11] MED LIST changes: +ACETAMINOPHEN 325 MG TAB As Ordered ONE; +ISOS1TAB36 PO; -ISOS60TA2 PO; -LISI-538 PO; +LISI20TA33 PO; +PERCOCET 5MG/325MG TAB As Ordered ONE; +SODIUM BICARBONATE 8.4% INJ 50MEQ 50 ML VIAL As Ordered ONE
[2020-11-11 10:49] LABS: TOTAL PROTEIN 6.9 GM/DL (6.4-8.2)
--- NOTE | 2020-11-11 11:42 | REP ---
INDICATION: s/p thoracentesis. COMPARISON: Comparison chest x-ray 01 October 2020. TECHNIQUE: Two views.. FINDINGS: There is some residual blunting of the left lateral pleural angle but this is improved. There is no evidence of pneumothorax or other complication. Right lung remains clear. Coronary artery stent material is visualized over the heart on the lateral radiograph as before. Pulmonary vasculature is not increased. IMPRESSION: No pneumothorax seen. Improved left pleural effusion.. <Electronically signed by Octaviano Kern > 11/11/20 [id number]
[2020-11-11 12:20] LABS: APPEARANCE, BODY FLUID HAZY (CLEAR); PH BODY FLUID 7.632 UNITS (NOT ESTABLISHED); PLEURAL FL COLOR YELLOW (COLORLESS); SOURCE, BODY FLUID PLEURAL; SOURCE, BODY FLUID pH PLEURAL
[2020-11-11 13:00] VITALS: BP 141/78
[2020-11-11 13:00] LABS: AMYLASE, BODY FLUID 33 U/L (NOT ESTABLISHED); LDH, BODY FLUID 152 U/L (NOT ESTABLISHED); SOURCE, BODY FLUID AMYLASE PLEURAL; SOURCE, BODY FLUID GLUCOSE PLEURAL; SOURCE, BODY FLUID LDH PLEURAL; SOURCE, BODY FLUID TOT PROTEIN PLEURAL
--- NOTE | 2020-11-11 13:33 | REP ---
INDICATION: LT PLEURAL EFFUSION The patient has a history of left pleural effusion COMPARISON: None. TECHNIQUE: The procedure was performed by Pao Garcia [facility], under the direct supervision of Dr. Kern The risks and benefits of the procedure were explained to the patient and an informed consent was obtained both verbally and written. Directly prior to the start of the procedure a formal time-out was completed in the procedure room. Pleural fluid in left lung zone was localized using ultrasound guidance. The skin was prepped and draped in a sterile fashion. Eight ML of buffered lidocaine was used as a local anesthetic. Using ultrasound guidance an 8-Albanian multi side-hole catheter was inserted using trocar technique. FINDINGS: Two hundred mL of yellow colored fluid was withdrawn and sent to the laboratory for further analysis. The patient tolerated the procedure well and there were no immediate complications. After the appropriate amount of monitored convalescence, the patient was discharged from the department. IMPRESSION: Ultrasound-guided thoracentesis with removal of 200 mL of pleural fluid. <Electronically signed by Pao Garcia > 11/11/20 1255 <Electronically signed by Octaviano Kern > 11/11/20 0897
== END ==
LOC: M IRPRO 09:43
PROVIDERS: ATTEND Thoracic Surgery (Cardiothoracic Vascular Surgery)
DX: J90 Pleural effusion, not elsewhere classified (principal)

== ENCOUNTER → 2020-11-20 | Outpatient (CLI) | payer MEDICARE, OTHER ==
[~2020-11-20] MED LIST changes: -ACETAMINOPHEN 325 MG TAB As Ordered ONE; -PERCOCET 5MG/325MG TAB As Ordered ONE; -SODIUM BICARBONATE 8.4% INJ 50MEQ 50 ML VIAL As Ordered ONE
--- NOTE | 2020-11-20 09:09 | REPPI ---
INDICATION: J90 PLEURAL EFFUSION NOT ELSEWHERE CLASSIFIED. COMPARISON: Chest x-ray 11/11/2020, 10/31/2020; CT 09/23/2020. TECHNIQUE: Two views FINDINGS: Right lung is well inflated and remains clear. There is a left pleural effusion again seen but it is essentially unchanged from the post thoracentesis chest x-ray on 11/11/2020. Overall slightly better level of inspiration and aeration in both lungs although lower lung volume in this postoperative patient on the left. Heart size unchanged. No vascular redistribution or edema. The aorta is calcified at the arch without gross aneurysm. Lateral view suggests a coronary stent anteriorly. Degenerative endplate changes with bridging syndesmophytes in the mid- lower thoracic spine but no compression deformity or destructive lesion. Other bones grossly intact. No free air. IMPRESSION: 1. Stable small left pleural effusion since 11/11/2020. No new or superimposed infiltrates or mass. Smaller lesions could be obscured due to the effusion at the left base. <Electronically signed by James Mobley > 11/20/20 0906
== END ==
LOC: M PLAIMG 08:33
PROVIDERS: ATTEND Internal Medicine Pulmonary Disease
DX: J90 Pleural effusion, not elsewhere classified (principal)

== ENCOUNTER → 2020-12-13 | Outpatient (CLI) | payer MEDICARE, OTHER ==
[2020-12-13 13:42] LABS: BASO # 0.1 10^3/uL (0.0-0.2); BASO % 1.4 % (0.0-1.0); EOS # 0.6 10^3/uL (0.0-0.5); HEMATOCRIT 46.6 % (36.0-47.0); HEMOGLOBIN 14.1 g/dl (12.0-15.5); LYMPH # 2.7 10^3/uL (1.5-5.0); MEAN CORPUSCULAR HEMOGLOBIN 27.5 pg (27.0-33.0); MEAN CORPUSCULAR HGB CONC 30.3 g/dl (32.0-36.5); MEAN CORPUSCULAR VOLUME 90.8 fl (80.0-96.0); MONO # 0.9 10^3/uL (0.0-0.8); NEUTROPHILS # 3.7 10^3/uL (1.5-8.5); NEUTROPHILS % 46.4 % (36.0-66.0); PLATELET COUNT, AUTOMATED 375 10^3/uL (150-450); RED BLOOD COUNT 5.13 10^6/uL (4.00-5.40)
[2020-12-13 14:18] LABS: MALB URINE SIEMENS 30.7 MG/L; MAU/CREAT RATIO 22.2 MCG/MG (0.0-30.0)
[2020-12-13 14:46] LABS: HEMOGLOBIN A1c 5.7 %
[2020-12-13 14:49] LABS: BILIRUBIN,TOTAL 0.3 MG/DL (0.2-1.0); CALCIUM LEVEL 9.8 MG/DL (8.8-10.2); CHOLESTEROL RISK RATIO 2.737 (<5); CREATININE FOR GFR 1.03 MG/DL (0.55-1.30); GLOMERULAR FILTRATION RATE 56.9 (>45); POTASSIUM SERUM 4.4 MEQ/L (3.5-5.1); TOTAL PROTEIN 7.8 GM/DL (6.4-8.2)
== END ==
LOC: M WUC 09:34
PROVIDERS: ATTEND Family Medicine
DX: E11.22 Type 2 diabetes mellitus with diabetic chronic kidney disease (principal); C34.32 Malignant neoplasm of lower lobe, left bronchus or lung; E78.2 Mixed hyperlipidemia; R94.31 Abnormal electrocardiogram [ECG] [EKG]

== ENCOUNTER → 2020-12-13 | Outpatient (CLI) | payer MEDICARE, OTHER ==
[2020-12-13 14:11] LABS: CALCIUM LEVEL 9.9 MG/DL (8.8-10.2); CREATININE FOR GFR 1.01 MG/DL (0.55-1.30); GLOMERULAR FILTRATION RATE 58.2 (>45); POTASSIUM SERUM 4.4 MEQ/L (3.5-5.1)
== END ==
LOC: M WUC 09:42
PROVIDERS: ATTEND Internal Medicine Pulmonary Disease
DX: C34.32 Malignant neoplasm of lower lobe, left bronchus or lung (principal)

== ENCOUNTER → 2020-12-13 | Outpatient (CLI) | payer MEDICARE, OTHER ==
[2020-12-13 14:09] LABS: CHOLESTEROL RISK RATIO 2.841 (<5); MAGNESIUM LEVEL 2.4 MG/DL (1.8-2.4)
== END ==
LOC: M WUC 09:38
PROVIDERS: ATTEND Physician Assistant
DX: E78.2 Mixed hyperlipidemia (principal); R94.31 Abnormal electrocardiogram [ECG] [EKG]

== ENCOUNTER → 2020-12-26 | Outpatient (CLI) | payer MEDICARE, OTHER ==
--- NOTE | 2020-12-26 11:32 | REPPI ---
INDICATION: PLEURAL EFFUSION. COMPARISON: PA and lateral chest dated 11/20/2020. TECHNIQUE: Upright PA and lateral chest. FINDINGS: There is a left pleural effusion, unchanged. The remainder of the left lung is clear. Right lung is clear and unchanged. Cardiac size is normal. The stephen, mediastinum and skeletal structures are unchanged. IMPRESSION: No interval change. There is a persisting left pleural effusion. <Electronically signed by Du Hinds > 12/26/20 1120
== END ==
LOC: M PLAIMG 10:11
PROVIDERS: ATTEND Internal Medicine Pulmonary Disease
DX: J90 Pleural effusion, not elsewhere classified (principal)

== ENCOUNTER → 2021-01-07 | Outpatient (CLI) | payer MEDICARE, OTHER ==
[~2021-01-07] MED LIST changes: +ISOVUE-370 76% 100ML VIAL As Ordered ONE
--- NOTE | 2021-01-07 16:17 | REP ---
INDICATION: PLEURAL EFFUSION H/O SMOKER LT LUNG CA. COMPARISON: Chest CT dated 09/23/2020 and PA and lateral chest dated 12/26/2020. TECHNIQUE: Chest CT with IV contrast. FINDINGS: There is a small left pleural effusion. It has slightly decreased in size from 09/23/2020 but is similar in size to 12/26/2020. The left lower lobe infiltrate identified on the comparison CT of 09/23/2020 has resolved. The lung lemons are otherwise clear. The patient has had a left lower lobe resection. There is no mediastinal or hilar lymph node enlargement. There is no axillary lymphadenopathy. The thoracic aorta is unremarkable. Cardiac size is normal. There is no pericardial effusion. There appears to be coronary artery vascular grafts. This is unchanged. There is a fixed hiatal hernia, unchanged measuring 6.2 cm. Upper abdomen: There is no adrenal mass. The visualized hepatic parenchyma is unremarkable. There are gallbladder cholesterol calculi with rim calcification. The gallbladder is otherwise unremarkable. The visualized areas the pancreas and spleen are unremarkable. IMPRESSION: The left pleural effusion has decreased slightly in size from the comparison CT but is similar in size to the comparison plain film study. Left lower lobectomy, unchanged from the prior studies. No lung nodules, masses or infiltrates. No adenopathy. Coronary artery bypass graft. Hiatal hernia. Cholelithiasis. <Electronically signed by Du Hnids > 01/07/21 [id number]
== END ==
LOC: M RAD 14:06
PROVIDERS: ATTEND Internal Medicine Pulmonary Disease
DX: J90 Pleural effusion, not elsewhere classified (principal); Z87.891 Personal history of nicotine dependence; C34.92 Malignant neoplasm of unspecified part of left bronchus or lung
CPT/HCPCS: 71260; Q9967

== ENCOUNTER → 2021-02-26 | Outpatient (CLI) | payer MEDICARE, OTHER ==
[~2021-02-26] MED LIST changes: -ISOVUE-370 76% 100ML VIAL As Ordered ONE
--- NOTE | 2021-02-26 09:31 | REPPI ---
INDICATION: J90 PLEURAL EFFUSION COMPARISON: 12/26/2020 TECHNIQUE: PA and lateral. FINDINGS: Opacity in the left lower lung zone is unchanged and may reflect chronic pleuroparenchymal changes although superimposed acute small pleural effusion cannot be excluded. The aerated lung lemons demonstrate chronic stable COPD/emphysematous changes without acute consolidation. No pneumothorax or right-sided effusion noted. IMPRESSION: Relatively stable examination. As above. <Electronically signed by Brendan Camara > 02/26/21 0904
== END ==
LOC: M PLAIMG 09:06
PROVIDERS: ATTEND Internal Medicine Pulmonary Disease
DX: J90 Pleural effusion, not elsewhere classified (principal)

== ENCOUNTER → 2021-03-27 | Outpatient (CLI) | payer MEDICARE, OTHER ==
[2021-03-27 13:22] LABS: BASO # 0.1 10^3/uL (0.0-0.2); BASO % 1.1 % (0.0-1.0); EOS # 0.8 10^3/uL (0.0-0.5); EOS % 9.5 % (0.0-3.0); HEMATOCRIT 43.4 % (36.0-47.0); HEMOGLOBIN 13.3 g/dl (12.0-15.5); LYMPH # 2.7 10^3/uL (1.5-5.0); LYMPH % 32.8 % (24.0-44.0); MEAN CORPUSCULAR HEMOGLOBIN 28.1 pg (27.0-33.0); MEAN CORPUSCULAR HGB CONC 30.6 g/dl (32.0-36.5); MEAN CORPUSCULAR VOLUME 91.6 fl (80.0-96.0); MONO % 12.1 % (2.0-8.0); NEUTROPHILS # 3.6 10^3/uL (1.5-8.5); NEUTROPHILS % 44.3 % (36.0-66.0); PLATELET COUNT, AUTOMATED 424 10^3/uL (150-450); RED BLOOD COUNT 4.74 10^6/uL (4.00-5.40); WHITE BLOOD COUNT 8.1 10^3/uL (4.0-10.0)
[2021-03-27 13:59] LABS: ALBUMIN 3.7 GM/DL (3.2-5.2); BILIRUBIN,TOTAL 0.4 MG/DL (0.2-1.0); CALCIUM LEVEL 9.4 MG/DL (8.8-10.2); CREATININE FOR GFR 1.11 MG/DL (0.55-1.30); FREE T4 0.74 NG/DL (0.76-1.46); PERCENT SATURATION 9.8 % (13.2-45.0); POTASSIUM SERUM 4.4 MEQ/L (3.5-5.1); THYROID STIMULATING HORMONE 1.46 uIU/ML (0.358-3.740); TOTAL PROTEIN 7.5 GM/DL (6.4-8.2)
== END ==
LOC: M WUC 10:15
PROVIDERS: ATTEND Family Medicine
DX: R42 Dizziness and giddiness (principal); D50.9 Iron deficiency anemia, unspecified; E07.9 Disorder of thyroid, unspecified

== ENCOUNTER → 2021-07-21 | Outpatient (CLI) | payer MEDICARE, OTHER ==
--- NOTE | 2021-07-21 14:02 | REP ---
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 There are no pleural or pericardial effusions. The imaged upper abdomen again shows a hiatal hernia, cholelithiasis, and bilateral nonobstructing nephroliths. There is no significant change in appearance of the imaged osseous structures. Evaluation of the lung lemons shows no new abnormal nodules, masses, or opacities. IMPRESSION: 1. The small pleural effusions seen previously has resolved. 2. No new abnormal nodules. 3. Other findings as described above. <Electronically signed by Charly Yeung > 07/21/21 [id number]
== END ==
LOC: M RAD 10:43
PROVIDERS: ATTEND Internal Medicine Pulmonary Disease
DX: Z85.118 Personal history of other malignant neoplasm of bronchus and lung (principal)

== ENCOUNTER 2021-11-18 10:46 | Emergency (ER) | payer MEDICARE, OTHER ==
[~2021-11-18] VITALS: Ht 165.1 cm; Wt 104.5 kg
[2021-11-18] MEDS ORDERED: ELIQ5TAB (11:02)
[2021-11-18] MEDS ORDERED: CLOP75TA2 (11:02)
[2021-11-18] MEDS ORDERED: ACETAMINOPHEN 500 MG TAB PO ONE (13:25)
[2021-11-18 14:43] VITALS: BP 126/78
== END 2021-11-18 14:53 | disposition home or self-care (01) ==
LOC: M ED 10:46
DX: S09.90XA Unspecified injury of head, initial encounter (principal); S90.31XA Contusion of right foot, initial encounter; W01.10XA Fall on same level from slipping, tripping and stumbling with subsequent striking against unspecified object, initial encounter; Y92.009 Unspecified place in unspecified non-institutional (private) residence as the place of occurrence of the external cause; Y93.9 Activity, unspecified; Y99.9 Unspecified external cause status; M43.12 Spondylolisthesis, cervical region; E11.9 Type 2 diabetes mellitus without complications; I25.10 Atherosclerotic heart disease of native coronary artery without angina pectoris; I10 Essential (primary) hypertension; E78.5 Hyperlipidemia, unspecified; Z79.899 Other long term (current) drug therapy

== ENCOUNTER → 2021-12-09 | Outpatient (CLI) | payer MEDICARE, OTHER ==
[~2021-12-09] MED LIST changes: +CLOP75TA2; -D31000TA2 PO; +ELIQ5TAB; +VITA100093 PO
[2021-12-09 13:08] LABS: CALCIUM LEVEL 9.8 MG/DL (8.8-10.2); CREATININE FOR GFR 1.17 MG/DL (0.55-1.30)
== END ==
LOC: M WUC 10:06
PROVIDERS: ATTEND Nurse Practitioner Adult Health
DX: I50.9 Heart failure, unspecified (principal)

== ENCOUNTER → 2022-02-21 | Outpatient (CLI) | payer MEDICARE, OTHER ==
[2022-02-21 11:18] LABS: CREATININE FOR GFR 1.1 MG/DL (0.55-1.30); GLOMERULAR FILTRATION RATE 52.4 (>45)
== END ==
LOC: M LAB 09:50
PROVIDERS: ATTEND Internal Medicine Pulmonary Disease
DX: C34.32 Malignant neoplasm of lower lobe, left bronchus or lung (principal)

== ENCOUNTER → 2022-02-23 | Outpatient (CLI) | payer MEDICARE, OTHER ==
[~2022-02-23] MED LIST changes: +ISOVUE-370 76% 100ML VIAL As Ordered ONE
== END ==
LOC: M RAD 08:09
PROVIDERS: ATTEND Internal Medicine Pulmonary Disease
DX: C34.32 Malignant neoplasm of lower lobe, left bronchus or lung (principal)
CPT/HCPCS: 71260; Q9967

== ENCOUNTER → 2022-04-27 | Outpatient (CLI) | payer MEDICARE, OTHER ==
[~2022-04-27] MED LIST changes: -ISOVUE-370 76% 100ML VIAL As Ordered ONE
[2022-04-27 13:11] LABS: CALCIUM LEVEL 8.9 MG/DL (8.8-10.2); CREATININE FOR GFR 1.09 MG/DL (0.55-1.30); POTASSIUM SERUM 4.3 MEQ/L (3.5-5.1)
== END ==
LOC: M WUC 09:10
PROVIDERS: ATTEND Nurse Practitioner Adult Health
DX: I50.9 Heart failure, unspecified (principal)

== ENCOUNTER → 2022-07-30 | Outpatient (CLI) | payer MEDICARE, OTHER ==
[2022-07-30 10:06] LABS: BASO # 0.1 10^3/uL (0.0-0.2); BASO % 1.4 % (0.0-1.0); EOS # 0.7 10^3/uL (0.0-0.5); EOS % 9.9 % (0.0-3.0); HEMATOCRIT 42.5 % (36.0-47.0); HEMOGLOBIN 12.4 g/dl (12.0-15.5); LYMPH # 2.4 10^3/uL (1.5-5.0); LYMPH % 31.9 % (24.0-44.0); MEAN CORPUSCULAR HEMOGLOBIN 25.7 pg (27.0-33.0); MEAN CORPUSCULAR HGB CONC 29.2 g/dl (32.0-36.5); MONO % 12.9 % (2.0-8.0); NEUTROPHILS # 3.2 10^3/uL (1.5-8.5); NEUTROPHILS % 43.8 % (36.0-66.0); PLATELET COUNT, AUTOMATED 407 10^3/uL (150-450); RED BLOOD COUNT 4.83 10^6/uL (4.00-5.40); WHITE BLOOD COUNT 7.4 10^3/uL (4.0-10.0)
[2022-07-30 10:46] LABS: HEMOGLOBIN A1c 6.5 %
[2022-07-30 11:02] LABS: ALBUMIN 3.6 GM/DL (3.2-5.2); ALT/SGPT 27 U/L (12-78); BILIRUBIN,TOTAL 0.3 MG/DL (0.2-1.0); BLOOD UREA NITROGEN 12 MG/DL (7-18); CALCIUM LEVEL 8.8 MG/DL (8.8-10.2); CARBON DIOXIDE LEVEL 27 MEQ/L (21-32); CHLORIDE LEVEL 107 MEQ/L (98-107); CHOLESTEROL LEVEL 154 MG/DL (<200); CREATININE FOR GFR 0.93 MG/DL (0.55-1.30); FREE T4 0.79 NG/DL (0.76-1.46); GLOMERULAR FILTRATION RATE > 60.0 (>45); GLUCOSE, FASTING 120 MG/DL (70-100); HDL CHOLESTEROL 55 MG/DL (>40); LDL CHOLESTEROL 71 MG/DL (<100); NON-HDL-C 99 MG/DL; NT-PRO BNP 159 PG/ML (<125); POTASSIUM SERUM 3.7 MEQ/L (3.5-5.1); SODIUM LEVEL 141 MEQ/L (136-145); TOTAL PROTEIN 7.4 GM/DL (6.4-8.2); TRIGLYCERIDES LEVEL 139 MG/DL (<150)
[2022-07-30 11:51] LABS: TOTAL 25(OH) VITAMIN D 22.5 NG/ML (30.0-100.0)
== END ==
LOC: M WUC 08:38
PROVIDERS: ATTEND Nurse Practitioner Adult Health
DX: I50.9 Heart failure, unspecified (principal); E11.22 Type 2 diabetes mellitus with diabetic chronic kidney disease; E78.5 Hyperlipidemia, unspecified

== ENCOUNTER 2022-10-10 17:09 | Inpatient (IN) | payer MEDICARE, OTHER ==
[~2022-10-10] VITALS: Ht 165.1 cm; Wt 112.3 kg
[~2022-10-10 17:09] MED LIST changes: -CLOP75TA2; +CLOP75TA2 PO
[2022-10-10 17:48] LABS: BASO # 0.1 10^3/uL (0.0-0.2); BASO % 0.3 % (0.0-1.0); HEMATOCRIT 39.7 % (36.0-47.0); HEMOGLOBIN 12.3 g/dl (12.0-15.5); LYMPH # 1.6 10^3/uL (1.5-5.0); LYMPH % 8.8 % (24.0-44.0); MEAN CORPUSCULAR HEMOGLOBIN 25.5 pg (27.0-33.0); MEAN CORPUSCULAR VOLUME 82.4 fl (80.0-96.0); MONO % 14.3 % (2.0-8.0); NEUTROPHILS # 13.8 10^3/uL (1.5-8.5); NEUTROPHILS % 76.1 % (36.0-66.0); PLATELET COUNT, AUTOMATED 388 10^3/uL (150-450); RED BLOOD COUNT 4.82 10^6/uL (4.00-5.40); WHITE BLOOD COUNT 18.1 10^3/uL (4.0-10.0)
[2022-10-10 18:18] LABS: BILIRUBIN,DIRECT 0.5 MG/DL (<0.4)
[2022-10-10 18:19] LABS: ALBUMIN 3.2 G/DL (3.2-5.2); BILIRUBIN,TOTAL 1.2 MG/DL (0.3-1.2); CALCIUM LEVEL 8.9 MG/DL (8.3-10.6); CREATININE FOR GFR 0.99 MG/DL (0.55-1.30); GLOMERULAR FILTRATION RATE 59.2 (>45); POTASSIUM SERUM 3.2 MMOL/L (3.5-5.1); TOTAL PROTEIN 7.2 G/DL (5.7-8.2)
[2022-10-10 18:21] LABS: THYROID STIMULATING HORMONE 2.357 uIU/ML (0.55-4.78); THYROXINE (T4) 9.8 UG/DL (4.5-10.9)
[2022-10-10 18:24] LABS: RSV AMPLIFICATION NEGATIVE (NEGATIVE)
[2022-10-10] MEDS ORDERED: IPRATROPIUM 0.5MG/ALBUTEROL 2.5MG INH SOL UD 3ML (DUONEB) NEB ONE (18:30)
[2022-10-10] MEDS ORDERED: ALBUTEROL SULFATE 2.5MG/0.5ML INH NEB SOLN NEB ONE (18:30)
[2022-10-10 18:34] LABS: MONO # 2.6 10^3/uL (0.0-0.8)
[2022-10-10] MEDS ORDERED: cefTRIAXone SOD 1 GM in D5W MINI-BAG PLUS 50 ML IV ONE (20:05)
[2022-10-10] MEDS ORDERED: THERTAB52 PO (20:23)
[2022-10-10] MEDS ORDERED: AMLO1TAB24 PO (20:23)
[2022-10-10] MEDS ORDERED: METF500T13 PO (20:25)
[2022-10-10] MEDS ORDERED: HOME MED LIST COMPLETE! XX SCH (20:25)
[2022-10-10] MEDS ORDERED: ACETAMINOPHEN 325 MG TAB PO ONE (21:00)
[2022-10-10] MEDS ORDERED: NS 1,000 ML IV SCH (23:05)
[2022-10-10] MEDS ORDERED: GLUCAGON INJ 1MG VIAL SC PRN (23:05)
[2022-10-10] MEDS ORDERED: ACETAMINOPHEN TAB 650MG DOSE (2X325MG) PO PRN (23:05)
[2022-10-10] MEDS ORDERED: DEXTROSE 50% 50ML SYRINGE IV PRN (23:05)
[2022-10-10] MEDS ORDERED: ALBUTEROL SULFATE 2.5MG/0.5ML INH NEB SOLN NEB PRN (23:05)
[2022-10-10] MEDS ORDERED: GLUCOSE 4GM CHEW TABLET PO PRN (23:05)
[2022-10-10] MEDS ORDERED: POTASSIUM CHLORIDE 10% LIQ 20MEQ/15ML UDC PO ONE (23:15)
[2022-10-11] MEDS: IPRATROPIUM 0.5MG/ALBUTEROL 2.5MG INH SOL UD 3ML (DUONEB) NEB SCH ×4 (01:45→20:16)
[2022-10-11] MEDS: DOXYCYCLINE HYCLATE 100MG TABLET PO SCH ×3 (02:12→21:17)
[2022-10-11] MEDS: ATORVASTATIN 20 MG TAB PO SCH ×2 (02:13→21:16)
[2022-10-11] MEDS: amLODIPine 5 MG TAB PO SCH ×2 (02:13→21:16)
[2022-10-11] MEDS: methylPREDNISolone 125MG 2ML VIAL IV SCH ×2 (02:13→06:20)
[2022-10-11] MEDS: INSULIN LISPRO (NovoLOG) PER UNIT SC SCH ×5 (02:23→21:00)
[2022-10-11] MEDS: HEPARIN SOD (PORCINE) 5000UNITS/ML 1ML VIAL/SYRINGE SC SCH ×3 (06:21→22:16)
[2022-10-11 06:46] LABS: BLOOD UREA NITROGEN 15 MG/DL (9-23); CALCIUM LEVEL 8.9 MG/DL (8.3-10.6); CARBON DIOXIDE LEVEL 28 MMOL/L (20-31); CHLORIDE LEVEL 102 MMOL/L (98-107); CREATININE FOR GFR 0.89 MG/DL (0.55-1.30); GLOMERULAR FILTRATION RATE > 60.0 (>45); GLUCOSE, FASTING 187 MG/DL (74-106); POTASSIUM SERUM 3.8 MMOL/L (3.5-5.1); SODIUM LEVEL 141 MMOL/L (136-145)
[2022-10-11 07:59] VITALS: BP 147/61
[2022-10-11] MEDS: PANTOPRAZOLE 40MG TAB (PROTONIX) PO SCH (08:34)
[2022-10-11] MEDS: CLOPIDOGREL 75 MG TAB PO SCH (08:34)
[2022-10-11] MEDS: VENLAFAXINE **XR** 75MG CAPSULE PO SCH ×2 (08:35→21:16)
[2022-10-11] MEDS: METOPROLOL TART 50 MG TAB PO SCH (08:35)
[2022-10-11] MEDS ORDERED: metFORMIN (GLUCOPHAGE) 500MG TAB PO SCH (09:00)
[2022-10-11] MEDS: methylPREDNISolone 40MG 1ML VIAL IV SCH ×2 (12:11→17:18)
[2022-10-11 16:00] VITALS: BP 138/63
[2022-10-12] MEDS: methylPREDNISolone 40MG 1ML VIAL IV SCH ×3 (00:12→12:00)
[2022-10-12] MEDS: IPRATROPIUM 0.5MG/ALBUTEROL 2.5MG INH SOL UD 3ML (DUONEB) NEB SCH ×2 (02:00→08:00)
[2022-10-12] MEDS: HEPARIN SOD (PORCINE) 5000UNITS/ML 1ML VIAL/SYRINGE SC SCH (06:19)
[2022-10-12] MEDS ORDERED: CEFD300C41 PO (07:18)
[2022-10-12] MEDS ORDERED: ALBU6.7H6 INH (07:18)
[2022-10-12] MEDS ORDERED: PRED10TA2 PO (07:18)
[2022-10-12] MEDS ORDERED: DOXY-444 PO (07:18)
[2022-10-12] MEDS ORDERED: AMOX875T2 PO (07:18)
[2022-10-12] MEDS ORDERED: FLUT44IN INH (07:49)
[2022-10-12 09:00] VITALS: BP 143/66
[2022-10-12] MEDS ORDERED: FLUTICASONE HFA 44MCG 10.6GM INHALER (FLOVENT) INH SCH (09:00)
[2022-10-12] MEDS ORDERED: cefTRIAXone SOD 2 GM in D5W MINI-BAG PLUS 50 ML IV SCH (09:00)
[2022-10-12] MEDS: CLOPIDOGREL 75 MG TAB PO SCH (09:17)
[2022-10-12] MEDS: PANTOPRAZOLE 40MG TAB (PROTONIX) PO SCH (09:17)
[2022-10-12] MEDS: DOXYCYCLINE HYCLATE 100MG TABLET PO SCH (09:17)
[2022-10-12] MEDS: INSULIN LISPRO (NovoLOG) PER UNIT SC SCH ×2 (09:18→12:01)
[2022-10-12 09:19] VITALS: BP 143/66
[2022-10-12] MEDS: METOPROLOL TART 50 MG TAB PO SCH (09:19)
[2022-10-12] MEDS: VENLAFAXINE **XR** 75MG CAPSULE PO SCH (09:28)
[2022-10-12] MEDS ORDERED: PNEUMOCOCCAL VACCINE 0.5ML SYRINGE (PNEUMOVAX 23) IM ONE (15:00)
== END 2022-10-12 12:30 | disposition home health service (06) | DRG 191 ==
LOC: EDBD 17:09 → M ED 18:27 → M ED INP 22:55
PROVIDERS: ADMIT Internal Medicine; ATTEND General Practice
DX: J44.1 Chronic obstructive pulmonary disease with (acute) exacerbation (principal); J96.11 Chronic respiratory failure with hypoxia; Z68.41 Body mass index [BMI] 40.0-44.9, adult; E11.65 Type 2 diabetes mellitus with hyperglycemia; I10 Essential (primary) hypertension; E78.00 Pure hypercholesterolemia, unspecified; T38.0X5A Adverse effect of glucocorticoids and synthetic analogues, initial encounter; F32.A Depression, unspecified; E66.9 Obesity, unspecified; K21.9 Gastro-esophageal reflux disease without esophagitis; Z99.81 Dependence on supplemental oxygen; Z90.49 Acquired absence of other specified parts of digestive tract; Z79.02 Long term (current) use of antithrombotics/antiplatelets; Z79.84 Long term (current) use of oral hypoglycemic drugs; Z79.899 Other long term (current) drug therapy; Z79.1 Long term (current) use of non-steroidal anti-inflammatories (NSAID)

== ENCOUNTER → 2022-10-19 | Outpatient (REF) | payer MEDICARE, OTHER ==
[~2022-10-19] MED LIST changes: +ALBU6.7H6 INH; +AMLO1TAB24 PO; +AMOX875T2 PO; +CEFD300C41 PO; +DOXY-444 PO; +FLUT44IN INH; +METF500T13 PO; +PRED10TA2 PO; +THERTAB52 PO
== END ==
LOC: M LAB REF 11:37
PROVIDERS: ATTEND Nurse Practitioner Adult Health
DX: R19.7 Diarrhea, unspecified (principal); R10.13 Epigastric pain

== ENCOUNTER → 2023-01-29 | Outpatient (CLI) | payer MEDICARE | LOC: M WUC 08:30 | PROVIDERS: ATTEND Physician Assistant | DX: S83.412A Sprain of medial collateral ligament of left knee, initial encounter (principal); W18.30XA Fall on same level, unspecified, initial encounter; Y92.009 Unspecified place in unspecified non-institutional (private) residence as the place of occurrence of the external cause ==

== ENCOUNTER → 2023-02-01 | Outpatient (CLI) | payer MEDICARE ==
[2023-02-01 12:59] LABS: BASO # 0.1 10^3/uL (0.0-0.2); BASO % 1.1 % (0.0-1.0); EOS # 0.7 10^3/uL (0.0-0.5); HEMATOCRIT 43.1 % (36.0-47.0); LYMPH # 2.2 10^3/uL (1.5-5.0); LYMPH % 27.4 % (24.0-44.0); MEAN CORPUSCULAR HEMOGLOBIN 25.9 pg (27.0-33.0); MEAN CORPUSCULAR HGB CONC 30.2 g/dl (32.0-36.5); MONO % 12.8 % (2.0-8.0); NEUTROPHILS % 49.6 % (36.0-66.0); PLATELET COUNT, AUTOMATED 405 10^3/uL (150-450); RED BLOOD COUNT 5.01 10^6/uL (4.00-5.40)
[2023-02-01 13:22] LABS: CREATININE, URINE 77.5 MG/DL
[2023-02-01 13:23] LABS: MAU/CREAT RATIO 3.8 MCG/MG (0.0-30.0)
[2023-02-01 13:27] LABS: HEMOGLOBIN A1c 6.2 % (4.0-6.0)
[2023-02-01 13:28] LABS: ALBUMIN 3.7 G/DL (3.2-5.2); ALKALINE PHOSPHATASE 92 U/L (46-116); ALT/SGPT 19 U/L (7.0-40); AST/SGOT 20 U/L (<34); BILIRUBIN,TOTAL 0.3 MG/DL (0.3-1.2); BLOOD UREA NITROGEN 14 MG/DL (9-23); CALCIUM LEVEL 9.5 MG/DL (8.3-10.6); CARBON DIOXIDE LEVEL 28 MMOL/L (20-31); CHLORIDE LEVEL 106 MMOL/L (98-107); CREATININE FOR GFR 0.85 MG/DL (0.55-1.30); GLOMERULAR FILTRATION RATE > 60.0 (>45); GLUCOSE, FASTING 107 MG/DL (74-106); POTASSIUM SERUM 4.4 MMOL/L (3.5-5.1); SODIUM LEVEL 139 MMOL/L (136-145); TOTAL PROTEIN 7.2 G/DL (5.7-8.2)
== END ==
LOC: M WUC 08:37
PROVIDERS: ATTEND Nurse Practitioner Adult Health
DX: E11.22 Type 2 diabetes mellitus with diabetic chronic kidney disease (principal); I50.9 Heart failure, unspecified; I11.9 Hypertensive heart disease without heart failure

== ENCOUNTER → 2023-02-22 | Outpatient (CLI) | payer MEDICARE ==
[~2023-02-22] MED LIST changes: +ISOVUE-370 76% 100ML VIAL As Ordered ONE
== END ==
LOC: M RAD 11:44
PROVIDERS: ATTEND Nurse Practitioner Adult Health
DX: R10.32 Left lower quadrant pain (principal)
CPT/HCPCS: 74177; Q9967

== ENCOUNTER → 2023-03-09 | Outpatient (CLI) | payer MEDICARE ==
[~2023-03-09] MED LIST changes: -ISOVUE-370 76% 100ML VIAL As Ordered ONE
== END ==
LOC: M RAD 09:44
PROVIDERS: ATTEND Nurse Practitioner Adult Health
DX: N93.9 Abnormal uterine and vaginal bleeding, unspecified (principal)

== ENCOUNTER → 2023-03-11 | Outpatient (REF) | payer MEDICARE, OTHER | LOC: M SFHCWAGY 17:30 | PROVIDERS: ATTEND Nurse Practitioner Family | DX: N95.0 Postmenopausal bleeding (principal); N85.8 Other specified noninflammatory disorders of uterus ==

== ENCOUNTER → 2023-05-04 | Outpatient (CLI) | payer MEDICARE, OTHER | LOC: M WUC 08:57 | PROVIDERS: ATTEND Nurse Practitioner Family | DX: R07.82 Intercostal pain (principal); J90 Pleural effusion, not elsewhere classified ==

== ENCOUNTER → 2023-07-28 | Outpatient (CLI) | payer MEDICARE, OTHER ==
[~2023-07-28] MED LIST changes: -CEFD300C41 PO; +CEFD300C42 PO
== END ==
LOC: M PLAIMG 10:22
PROVIDERS: ATTEND Internal Medicine Critical Care Medicine
DX: C34.32 Malignant neoplasm of lower lobe, left bronchus or lung (principal)

== ENCOUNTER → 2023-08-02 | Outpatient (CLI) | payer MEDICARE, OTHER ==
[2023-08-02 12:38] LABS: BASO # 0.1 10^3/uL (0.0-0.2); BASO % 1.3 % (0.0-1.0); EOS # 0.4 10^3/uL (0.0-0.5); EOS % 7.2 % (0.0-3.0); HEMATOCRIT 45.6 % (36.0-47.0); HEMOGLOBIN 13.9 g/dl (12.0-15.5); LYMPH # 1.6 10^3/uL (1.5-5.0); LYMPH % 26.3 % (24.0-44.0); MEAN CORPUSCULAR HEMOGLOBIN 27.8 pg (27.0-33.0); MEAN CORPUSCULAR HGB CONC 30.5 g/dl (32.0-36.5); MEAN CORPUSCULAR VOLUME 91.2 fl (80.0-96.0); MONO # 0.8 10^3/uL (0.0-0.8); MONO % 12.8 % (2.0-8.0); NEUTROPHILS # 3.2 10^3/uL (1.5-8.5); NEUTROPHILS % 52.1 % (36.0-66.0); PLATELET COUNT, AUTOMATED 355 10^3/uL (150-450); WHITE BLOOD COUNT 6.1 10^3/uL (4.0-10.0)
[2023-08-02 12:47] LABS: HEMOGLOBIN A1c 5.6 % (4.0-6.0)
[2023-08-02 13:03] LABS: ALBUMIN 3.7 G/DL (3.2-5.2); ALKALINE PHOSPHATASE 93 U/L (46-116); ALT/SGPT 19 U/L (7.0-40); AST/SGOT 17 U/L (<34); BILIRUBIN,TOTAL 0.5 MG/DL (0.3-1.2); BLOOD UREA NITROGEN 12 MG/DL (9-23); CALCIUM LEVEL 9.7 MG/DL (8.3-10.6); CARBON DIOXIDE LEVEL 30 MMOL/L (20-31); CHLORIDE LEVEL 105 MMOL/L (98-107); CHOLESTEROL LEVEL 254 MG/DL (<200); CHOLESTEROL RISK RATIO 5.29 (<5); CREATININE FOR GFR 0.85 MG/DL (0.55-1.30); GLOMERULAR FILTRATION RATE > 60.0 (>39); GLUCOSE, FASTING 98 MG/DL (74-106); LDL CHOLESTEROL 174.8 MG/DL (<100); SODIUM LEVEL 144 MMOL/L (136-145); TOTAL PROTEIN 6.9 G/DL (5.7-8.2); TRIGLYCERIDES LEVEL 156 MG/DL (<150)
== END ==
LOC: M WUC 09:48
PROVIDERS: ATTEND Nurse Practitioner Adult Health
DX: E11.22 Type 2 diabetes mellitus with diabetic chronic kidney disease (principal)

== ENCOUNTER → 2023-08-05 | Outpatient (CLI) | payer MEDICARE, OTHER | LOC: M CARPUL 10:34 | PROVIDERS: ATTEND Internal Medicine Critical Care Medicine | DX: J44.9 Chronic obstructive pulmonary disease, unspecified (principal) ==

== ENCOUNTER → 2023-09-07 | Outpatient (CLI) | payer MEDICARE, OTHER ==
[~2023-09-07] MED LIST changes: +CEFD1CAP9 PO; -CEFD300C42 PO
[2023-09-07 17:12] LABS: BASO # 0.1 10^3/uL (0.0-0.2); EOS # 0.4 10^3/uL (0.0-0.5); EOS % 3.4 % (0.0-3.0); HEMATOCRIT 45.7 % (36.0-47.0); LYMPH # 3.4 10^3/uL (1.5-5.0); LYMPH % 32.6 % (24.0-44.0); MEAN CORPUSCULAR HEMOGLOBIN 27.6 pg (27.0-33.0); MEAN CORPUSCULAR HGB CONC 30.6 g/dl (32.0-36.5); MONO # 1.1 10^3/uL (0.0-0.8); MONO % 10.3 % (2.0-8.0); NEUTROPHILS # 5.4 10^3/uL (1.5-8.5); NEUTROPHILS % 52.2 % (36.0-66.0); PLATELET COUNT, AUTOMATED 428 10^3/uL (150-450); RED BLOOD COUNT 5.08 10^6/uL (4.00-5.40); WHITE BLOOD COUNT 10.4 10^3/uL (4.0-10.0)
== END ==
LOC: M WUC 12:12
PROVIDERS: ATTEND Nurse Practitioner Adult Health
DX: J44.1 Chronic obstructive pulmonary disease with (acute) exacerbation (principal)

== ENCOUNTER → 2023-11-01 | Outpatient (CLI) | payer MEDICARE, OTHER | LOC: M PLAIMG 09:03 | PROVIDERS: ATTEND Internal Medicine Critical Care Medicine | DX: C34.32 Malignant neoplasm of lower lobe, left bronchus or lung (principal); J43.2 Centrilobular emphysema; I51.7 Cardiomegaly; I25.10 Atherosclerotic heart disease of native coronary artery without angina pectoris; K44.9 Diaphragmatic hernia without obstruction or gangrene; K80.20 Calculus of gallbladder without cholecystitis without obstruction; N20.0 Calculus of kidney ==

== ENCOUNTER → 2023-11-11 | Outpatient (CLI) | payer MEDICARE, OTHER ==
[2023-11-11 12:53] LABS: BASO # 0.1 10^3/uL (0.0-0.2); BASO % 0.9 % (0.0-1.0); EOS # 0.3 10^3/uL (0.0-0.5); EOS % 3.7 % (0.0-3.0); HEMATOCRIT 46.1 % (36.0-47.0); HEMOGLOBIN 14.2 g/dl (12.0-15.5); LYMPH # 2.5 10^3/uL (1.5-5.0); LYMPH % 33.2 % (24.0-44.0); MEAN CORPUSCULAR HEMOGLOBIN 28.1 pg (27.0-33.0); MEAN CORPUSCULAR HGB CONC 30.8 g/dl (32.0-36.5); MEAN CORPUSCULAR VOLUME 91.1 fl (80.0-96.0); MONO # 0.9 10^3/uL (0.0-0.8); MONO % 12.1 % (2.0-8.0); NEUTROPHILS # 3.8 10^3/uL (1.5-8.5); NEUTROPHILS % 49.8 % (36.0-66.0); PLATELET COUNT, AUTOMATED 340 10^3/uL (150-450); RED BLOOD COUNT 5.06 10^6/uL (4.00-5.40); WHITE BLOOD COUNT 7.6 10^3/uL (4.0-10.0)
[2023-11-11 13:04] LABS: HEMOGLOBIN A1c 6.2 % (4.0-6.0)
[2023-11-11 13:15] LABS: ALBUMIN 3.5 G/DL (3.2-5.2); BILIRUBIN,TOTAL 0.4 MG/DL (0.3-1.2); CALCIUM LEVEL 9.3 MG/DL (8.3-10.6); CREATININE FOR GFR 1.03 MG/DL (0.55-1.30); GLOMERULAR FILTRATION RATE 56.4 (>39); POTASSIUM SERUM 4.3 MMOL/L (3.5-5.1); TOTAL PROTEIN 6.7 G/DL (5.7-8.2)
== END ==
LOC: M WUC 10:13
PROVIDERS: ATTEND Nurse Practitioner Adult Health
DX: E11.22 Type 2 diabetes mellitus with diabetic chronic kidney disease (principal)

== ENCOUNTER → 2023-11-15 | Outpatient (CLI) | payer MEDICARE, OTHER | LOC: M PLARAD 08:25 | PROVIDERS: ATTEND Internal Medicine Critical Care Medicine | DX: C34.90 Malignant neoplasm of unspecified part of unspecified bronchus or lung (principal); C79.51 Secondary malignant neoplasm of bone | CPT/HCPCS: 78815; A9552 ==

== ENCOUNTER → 2023-12-10 | Outpatient (CLI) | payer MEDICARE, OTHER ==
[~2023-12-10] MED LIST changes: +FLUT1BLS8 IH; +GABA-1171 PO; +GNP250TA9 PO; +LASI40TA9 PO; +POTA-149 PO
== END ==
LOC: M PLAIMG 10:23
PROVIDERS: ATTEND Internal Medicine Cardiovascular Disease
DX: I50.32 Chronic diastolic (congestive) heart failure (principal); I35.8 Other nonrheumatic aortic valve disorders; I25.10 Atherosclerotic heart disease of native coronary artery without angina pectoris

== ENCOUNTER → 2023-12-20 | Outpatient (CLI) | payer MEDICARE, OTHER ==
[~2023-12-20] MED LIST changes: +LIDOCAINE 1% MDV 20ML VIAL As Ordered ONE
[2023-12-20 09:47] VITALS: BP 140/80; TEMP 96.4; O2SAT 92
== END ==
LOC: M IRPRO 09:33
PROVIDERS: ATTEND Otolaryngology
DX: D37.030 Neoplasm of uncertain behavior of the parotid salivary glands (principal)

== ENCOUNTER → 2023-12-22 | Outpatient (CLI) | payer MEDICARE, OTHER ==
[~2023-12-22] MED LIST changes: -LIDOCAINE 1% MDV 20ML VIAL As Ordered ONE
[2023-12-22 12:07] LABS: BASO # 0.1 10^3/uL (0.0-0.2); BASO % 1.1 % (0.0-1.0); EOS # 0.4 10^3/uL (0.0-0.5); EOS % 3.7 % (0.0-3.0); HEMATOCRIT 47.8 % (36.0-47.0); HEMOGLOBIN 14.7 g/dl (12.0-15.5); LYMPH # 2.8 10^3/uL (1.5-5.0); LYMPH % 27.4 % (24.0-44.0); MEAN CORPUSCULAR HEMOGLOBIN 28.9 pg (27.0-33.0); MEAN CORPUSCULAR HGB CONC 30.8 g/dl (32.0-36.5); MEAN CORPUSCULAR VOLUME 94.1 fl (80.0-96.0); MONO # 1.1 10^3/uL (0.0-0.8); MONO % 10.6 % (2.0-8.0); NEUTROPHILS # 5.8 10^3/uL (1.5-8.5); NEUTROPHILS % 56.9 % (36.0-66.0); PLATELET COUNT, AUTOMATED 351 10^3/uL (150-450); RED BLOOD COUNT 5.08 10^6/uL (4.00-5.40); WHITE BLOOD COUNT 10.1 10^3/uL (4.0-10.0)
[2023-12-22 12:23] LABS: PROTHROMBIN TIME 12.9 SECONDS (12.5-14.5)
== END ==
LOC: M WUC 09:29
PROVIDERS: ATTEND Internal Medicine Critical Care Medicine
DX: C34.32 Malignant neoplasm of lower lobe, left bronchus or lung (principal); Z79.01 Long term (current) use of anticoagulants

== ENCOUNTER → 2023-12-28 | Outpatient (CLI) | payer MEDICARE, OTHER ==
[~2023-12-28] MED LIST changes: -FLUT1BLS8 IH; +FLUT1BLS8 INH; +HOME MED LIST COMPLETE! XX SCH; +LIDOCAINE 1% MDV 20ML VIAL As Ordered ONE; +fentaNYL 100 MCG/2 ML INJECTION As Ordered ONE
[2023-12-28 08:20] VITALS: TEMP 97.4
[2023-12-28 12:00] VITALS: BP 140/77; O2SAT 93
[2023-12-28] MEDS: ANEXSIA, NORCO 7.5MG/325MG TABLET(HYDROCODONE/APAP) PO PRN (12:03)
== END ==
LOC: M IRPRO 07:57
PROVIDERS: ATTEND Internal Medicine Critical Care Medicine
DX: D37.030 Neoplasm of uncertain behavior of the parotid salivary glands (principal); R91.1 Solitary pulmonary nodule; C34.32 Malignant neoplasm of lower lobe, left bronchus or lung
CPT/HCPCS: 32408; 88305; J3010

== ENCOUNTER 2024-01-23 10:28 | Emergency (ER) | payer MEDICARE, OTHER ==
[~2024-01-23] VITALS: Ht 165.1 cm; Wt 117.6 kg
[~2024-01-23 10:28] MED LIST changes: +ALB2.5NEB INH; +ALBU2.5V10 INH; +BUDE10.7 IH; -HOME MED LIST COMPLETE! XX SCH; -LIDOCAINE 1% MDV 20ML VIAL As Ordered ONE; +NEXI40CA PO; +PEPC40TA12 PO; +Prevagen; +SPIR-10 PO; -fentaNYL 100 MCG/2 ML INJECTION As Ordered ONE
[2024-01-23] MEDS: IPRATROPIUM 0.5MG/ALBUTEROL 2.5MG INH SOL UD 3ML (DUONEB) NEB SCH (13:30)
[2024-01-23] MEDS: predniSONE 20 MG TAB PO ONE (13:59)
[2024-01-23] MEDS: ACETAMINOPHEN 325 MG TAB PO ONE (14:00)
[2024-01-23 14:59] LABS: BASO # 0.1 10^3/uL (0.0-0.2); BASO % 0.9 % (0.0-1.0); EOS # 0.2 10^3/uL (0.0-0.5); EOS % 2.1 % (0.0-3.0); HEMATOCRIT 44.9 % (36.0-47.0); HEMOGLOBIN 14.4 g/dl (12.0-15.5); LYMPH # 2.2 10^3/uL (1.5-5.0); LYMPH % 28.9 % (24.0-44.0); MEAN CORPUSCULAR HEMOGLOBIN 28.9 pg (27.0-33.0); MEAN CORPUSCULAR HGB CONC 32.1 g/dl (32.0-36.5); MEAN CORPUSCULAR VOLUME 90.2 fl (80.0-96.0); MONO # 1.2 10^3/uL (0.0-0.8); MONO % 15.7 % (2.0-8.0); NEUTROPHILS % 52.1 % (36.0-66.0); PLATELET COUNT, AUTOMATED 289 10^3/uL (150-450); RED BLOOD COUNT 4.98 10^6/uL (4.00-5.40); WHITE BLOOD COUNT 7.8 10^3/uL (4.0-10.0)
[2024-01-23 15:27] LABS: ALBUMIN 3.7 G/DL (3.2-5.2); ALKALINE PHOSPHATASE 104 U/L (46-116); ALT/SGPT 30 U/L (7.0-40); AST/SGOT 25 U/L (<34); BILIRUBIN,TOTAL 0.5 MG/DL (0.3-1.2); BLOOD UREA NITROGEN 12 MG/DL (9-23); CALCIUM LEVEL 9.6 MG/DL (8.3-10.6); CARBON DIOXIDE LEVEL 27 MMOL/L (20-31); CHLORIDE LEVEL 102 MMOL/L (98-107); CREATININE FOR GFR 0.95 MG/DL (0.55-1.30); GLOMERULAR FILTRATION RATE > 60.0 (>39); GLUCOSE, FASTING 124 MG/DL (74-106); POTASSIUM SERUM 3.8 MMOL/L (3.5-5.1); SODIUM LEVEL 139 MMOL/L (136-145); TOTAL PROTEIN 7.2 G/DL (5.7-8.2)
[2024-01-23] MEDS ORDERED: PRED20TA PO (15:31)
[2024-01-23 15:56] VITALS: BP 143/63; TEMP 98.6; O2SAT 93
== END 2024-01-23 16:01 | disposition home or self-care (01) ==
LOC: M ED 10:28
DX: J44.1 Chronic obstructive pulmonary disease with (acute) exacerbation (principal); R00.0 Tachycardia, unspecified; J12.2 Parainfluenza virus pneumonia; I50.22 Chronic systolic (congestive) heart failure; I25.119 Atherosclerotic heart disease of native coronary artery with unspecified angina pectoris; E11.9 Type 2 diabetes mellitus without complications; E78.5 Hyperlipidemia, unspecified; Z87.891 Personal history of nicotine dependence; Z79.51 Long term (current) use of inhaled steroids; Z79.84 Long term (current) use of oral hypoglycemic drugs; Z79.899 Other long term (current) drug therapy; Z79.52 Long term (current) use of systemic steroids
CPT/HCPCS: 36415; 71046; 80053; 83605; 85025; 87040; 87486; 87581; 87633; 87798; 93005; 94640; 99284; J7512

== ENCOUNTER → 2024-02-15 | Outpatient (CLI) | payer MEDICARE, OTHER ==
[~2024-02-15] MED LIST changes: +DOXY-440 PO; -DOXY-444 PO; +LIDOCAINE 1% MDV 20ML VIAL As Ordered ONE; +OXYC-517; +PRED20TA PO
[2024-02-15 08:50] VITALS: O2SAT 95
[2024-02-15 09:18] LABS: HEMATOCRIT 47.5 % (36.0-47.0); HEMOGLOBIN 14.7 g/dl (12.0-15.5); MEAN CORPUSCULAR HEMOGLOBIN 28.5 pg (27.0-33.0); MEAN CORPUSCULAR HGB CONC 30.9 g/dl (32.0-36.5); MEAN CORPUSCULAR VOLUME 92.1 fl (80.0-96.0); PLATELET COUNT, AUTOMATED 340 10^3/uL (150-450); RED BLOOD COUNT 5.16 10^6/uL (4.00-5.40); WHITE BLOOD COUNT 11.3 10^3/uL (4.0-10.0)
[2024-02-15 09:30] VITALS: BP 154/84
== END ==
LOC: M IRPRO 08:35
PROVIDERS: ATTEND Internal Medicine Medical Oncology
DX: D72.829 Elevated white blood cell count, unspecified (principal); C34.90 Malignant neoplasm of unspecified part of unspecified bronchus or lung

== ENCOUNTER → 2024-02-18 | Outpatient (REF) | payer MEDICARE, OTHER ==
[~2024-02-18] MED LIST changes: -LIDOCAINE 1% MDV 20ML VIAL As Ordered ONE; -OXYC-517
== END ==
LOC: M LAB REF 14:57
PROVIDERS: ATTEND Physician Assistant
DX: J44.0 Chronic obstructive pulmonary disease with (acute) lower respiratory infection (principal)

== ENCOUNTER → 2024-03-02 | Outpatient (CLI) | payer MEDICARE, OTHER ==
[~2024-03-02] MED LIST changes: +OXYC-517
== END ==
LOC: M ONCR 10:49
PROVIDERS: ATTEND General Practice
DX: C88.4 Extranodal marginal zone B-cell lymphoma of mucosa-associated lymphoid tissue [MALT-lymphoma] (principal); J44.9 Chronic obstructive pulmonary disease, unspecified; C34.32 Malignant neoplasm of lower lobe, left bronchus or lung; Z71.2 Person consulting for explanation of examination or test findings; Z79.02 Long term (current) use of antithrombotics/antiplatelets; Z79.51 Long term (current) use of inhaled steroids; Z79.52 Long term (current) use of systemic steroids; Z79.84 Long term (current) use of oral hypoglycemic drugs; Z79.899 Other long term (current) drug therapy; Z80.0 Family history of malignant neoplasm of digestive organs; Z80.1 Family history of malignant neoplasm of trachea, bronchus and lung; Z87.891 Personal history of nicotine dependence; Z90.2 Acquired absence of lung [part of]

== ENCOUNTER → 2024-03-10 | Outpatient (CLI) | payer MEDICARE, OTHER ==
[~2024-03-10] MED LIST changes: +ESOM1CAP20 PO; -ESOM1CAP5 PO
== END ==
LOC: M WUC 12:02
PROVIDERS: ATTEND Nurse Practitioner Adult Health
DX: S23.3XXA Sprain of ligaments of thoracic spine, initial encounter (principal)

== ENCOUNTER 2024-03-31 14:48 | Outpatient (RCR) | payer MEDICARE, OTHER | END 2024-04-02 | LOC: M ONCR 14:48 | PROVIDERS: ATTEND General Practice | DX: Z51.0 Encounter for antineoplastic radiation therapy (principal); C88.4 Extranodal marginal zone B-cell lymphoma of mucosa-associated lymphoid tissue [MALT-lymphoma] ==

== ENCOUNTER 2024-04-17 10:37 | Outpatient (RCR) | payer MEDICARE, OTHER | END 2024-05-03 | LOC: M ONCR 10:37 | PROVIDERS: ATTEND General Practice | DX: Z51.0 Encounter for antineoplastic radiation therapy (principal); C88.4 Extranodal marginal zone B-cell lymphoma of mucosa-associated lymphoid tissue [MALT-lymphoma] ==

== ENCOUNTER → 2024-06-27 | Outpatient (CLI) | payer MEDICARE, OTHER ==
[2024-06-27 09:52] LABS: BASO # 0.1 10^3/uL (0.0-0.2); BASO % 0.9 % (0.0-1.0); EOS # 0.5 10^3/uL (0.0-0.5); EOS % 7.4 % (0.0-3.0); HEMATOCRIT 45.7 % (36.0-47.0); HEMOGLOBIN 14.3 g/dl (12.0-15.5); MEAN CORPUSCULAR HEMOGLOBIN 29.9 pg (27.0-33.0); MEAN CORPUSCULAR HGB CONC 31.3 g/dl (32.0-36.5); MEAN CORPUSCULAR VOLUME 95.4 fl (80.0-96.0); MONO # 0.9 10^3/uL (0.0-0.8); MONO % 13.7 % (2.0-8.0); NEUTROPHILS # 3.3 10^3/uL (1.5-8.5); NEUTROPHILS % 48.9 % (36.0-66.0); PLATELET COUNT, AUTOMATED 272 10^3/uL (150-450); RED BLOOD COUNT 4.79 10^6/uL (4.00-5.40); WHITE BLOOD COUNT 6.7 10^3/uL (4.0-10.0)
[2024-06-27 10:17] LABS: HEMOGLOBIN A1c 5.9 % (4.0-6.0)
[2024-06-27 10:31] LABS: MALB URINE SIEMENS < 3.0 MG/L
[2024-06-27 10:32] LABS: CREATININE, URINE 139.3 MG/DL; MAU/CREAT RATIO 2.1 MCG/MG (0.0-30.0)
[2024-06-27 10:44] LABS: ALBUMIN 3.8 G/DL (3.2-5.2); ALKALINE PHOSPHATASE 118 U/L (46-116); ALT/SGPT 23 U/L (7.0-40); AST/SGOT 13 U/L (<34); BILIRUBIN,TOTAL 0.7 MG/DL (0.3-1.2); BLOOD UREA NITROGEN 11 MG/DL (9-23); CALCIUM LEVEL 9.4 MG/DL (8.3-10.6); CARBON DIOXIDE LEVEL 32 MMOL/L (20-31); CHLORIDE LEVEL 106 MMOL/L (98-107); CHOLESTEROL LEVEL 134 MG/DL (<200); CHOLESTEROL RISK RATIO 2.82 (<5); CREATININE FOR GFR 0.86 MG/DL (0.55-1.30); GLOMERULAR FILTRATION RATE > 60.0 (>39); GLUCOSE, FASTING 106 MG/DL (74-106); HDL CHOLESTEROL 47.4 MG/DL (>40); LDL CHOLESTEROL 66.4 MG/DL (<100); NON-HDL-C 86.6 MG/DL; POTASSIUM SERUM 4.2 MMOL/L (3.5-5.1); SODIUM LEVEL 143 MMOL/L (136-145); TOTAL PROTEIN 7.1 G/DL (5.7-8.2); TRIGLYCERIDES LEVEL 101 MG/DL (<150)
[2024-06-27 10:47] LABS: FREE T4 1.07 NG/DL (0.89-1.76)
== END ==
LOC: M WUC 08:29
PROVIDERS: ATTEND Nurse Practitioner Adult Health
DX: E11.22 Type 2 diabetes mellitus with diabetic chronic kidney disease (principal); I11.9 Hypertensive heart disease without heart failure

== ENCOUNTER → 2024-06-29 | Outpatient (CLI) | payer MEDICARE, OTHER ==
[~2024-06-29] MED LIST changes: +ISOVUE-370 76% 100ML VIAL As Ordered ONE
== END ==
LOC: M RAD 10:59
PROVIDERS: ATTEND Nurse Practitioner Adult Health
DX: C34.32 Malignant neoplasm of lower lobe, left bronchus or lung (principal); S23.3XXA Sprain of ligaments of thoracic spine, initial encounter; J44.9 Chronic obstructive pulmonary disease, unspecified; W18.30XA Fall on same level, unspecified, initial encounter; Y92.009 Unspecified place in unspecified non-institutional (private) residence as the place of occurrence of the external cause
CPT/HCPCS: 72129; Q9967

== ENCOUNTER → 2024-07-10 | Outpatient (CLI) | payer MEDICARE, OTHER ==
[~2024-07-10] MED LIST changes: -ISOVUE-370 76% 100ML VIAL As Ordered ONE
== END ==
LOC: M PLARAD 11:02
PROVIDERS: ATTEND General Practice
DX: C88.40 Extranodal marginal zone B-cell lymphoma of mucosa-associated lymphoid tissue [MALT-lymphoma] not having achieved remission (principal)
CPT/HCPCS: 78815; A9552

== ENCOUNTER → 2024-07-18 | Outpatient (CLI) | payer MEDICARE, OTHER ==
[~2024-07-18] MED LIST changes: +LEVO1TAB40 PO; +PRED50TA PO
== END ==
LOC: M ONCR 08:45
PROVIDERS: ATTEND General Practice
DX: J18.9 Pneumonia, unspecified organism (principal); R91.8 Other nonspecific abnormal finding of lung field; C88.41 Extranodal marginal zone B-cell lymphoma of mucosa-associated lymphoid tissue [MALT-lymphoma], in remission; C34.32 Malignant neoplasm of lower lobe, left bronchus or lung; Z87.891 Personal history of nicotine dependence; Z79.52 Long term (current) use of systemic steroids; Z79.51 Long term (current) use of inhaled steroids; Z79.899 Other long term (current) drug therapy; Z79.84 Long term (current) use of oral hypoglycemic drugs; Z79.02 Long term (current) use of antithrombotics/antiplatelets; Z92.3 Personal history of irradiation

== ENCOUNTER → 2024-08-18 | Outpatient (CLI) | payer MEDICARE, OTHER | LOC: M RAD 09:37 | PROVIDERS: ATTEND General Practice | DX: C88.40 Extranodal marginal zone B-cell lymphoma of mucosa-associated lymphoid tissue [MALT-lymphoma] not having achieved remission (principal); R91.8 Other nonspecific abnormal finding of lung field; K44.9 Diaphragmatic hernia without obstruction or gangrene ==

== ENCOUNTER → 2024-08-22 | Outpatient (CLI) | payer MEDICARE, OTHER | LOC: M ONCR 08:59 | PROVIDERS: ATTEND General Practice | DX: C88.41 Extranodal marginal zone B-cell lymphoma of mucosa-associated lymphoid tissue [MALT-lymphoma], in remission (principal); Z85.118 Personal history of other malignant neoplasm of bronchus and lung; Z87.891 Personal history of nicotine dependence; Z79.02 Long term (current) use of antithrombotics/antiplatelets; Z79.51 Long term (current) use of inhaled steroids; Z79.52 Long term (current) use of systemic steroids; Z79.84 Long term (current) use of oral hypoglycemic drugs; Z79.891 Long term (current) use of opiate analgesic; Z79.899 Other long term (current) drug therapy; Z90.2 Acquired absence of lung [part of] ==

== ENCOUNTER → 2024-10-06 | Outpatient (CLI) | payer MEDICARE, OTHER | LOC: M PLARAD 11:59 | PROVIDERS: ATTEND Nurse Practitioner Adult Health | DX: M51.24 Other intervertebral disc displacement, thoracic region (principal) ==

== ENCOUNTER → 2024-10-16 | Outpatient (CLI) | payer MEDICARE, OTHER | LOC: M WHC 09:25 | PROVIDERS: ATTEND Nurse Practitioner Adult Health | DX: S22.000A Wedge compression fracture of unspecified thoracic vertebra, initial encounter for closed fracture (principal); W18.30XA Fall on same level, unspecified, initial encounter; Y92.009 Unspecified place in unspecified non-institutional (private) residence as the place of occurrence of the external cause ==

== ENCOUNTER → 2024-12-15 | Outpatient (CLI) | payer MEDICARE, OTHER | LOC: M RAD 09:19 | PROVIDERS: ATTEND General Practice | DX: C88.40 Extranodal marginal zone B-cell lymphoma of mucosa-associated lymphoid tissue [MALT-lymphoma] not having achieved remission (principal) ==

== ENCOUNTER → 2024-12-20 | Outpatient (CLI) | payer MEDICARE, OTHER | LOC: M ONCR 09:58 | PROVIDERS: ATTEND General Practice | DX: C88.41 Extranodal marginal zone B-cell lymphoma of mucosa-associated lymphoid tissue [MALT-lymphoma], in remission (principal); Z85.118 Personal history of other malignant neoplasm of bronchus and lung; Z87.891 Personal history of nicotine dependence; Z79.52 Long term (current) use of systemic steroids; Z79.891 Long term (current) use of opiate analgesic; Z79.84 Long term (current) use of oral hypoglycemic drugs; Z79.899 Other long term (current) drug therapy; Z92.3 Personal history of irradiation ==

== ENCOUNTER → 2025-04-25 | Outpatient (CLI) | payer MEDICARE, OTHER ==
[~2025-04-25] MED LIST changes: -PRED50TA PO; +PRED50TA57 PO
[2025-04-25 12:35] LABS: BASO # 0.1 10^3/uL (0.0-0.2); BASO % 1.1 % (0.0-1.0); EOS # 0.8 10^3/uL (0.0-0.5); EOS % 12.5 % (0.0-3.0); LYMPH # 1.9 10^3/uL (1.5-5.0); LYMPH % 29.1 % (24.0-44.0); MONO # 0.8 10^3/uL (0.0-0.8); MONO % 11.9 % (2.0-8.0); NEUTROPHILS # 2.9 10^3/uL (1.5-8.5); NEUTROPHILS % 45.2 % (36.0-66.0); PLATELET COUNT, AUTOMATED 269 10^3/uL (150-450)
[2025-04-25 12:40] LABS: ERYTHROCYTE SEDIMENTATION RATE 25 mm/hr (0-30)
[2025-04-25 13:57] LABS: C REACTIVE PROTEIN QUANTITATIV < 0.50 MG/DL (<1.0); CALCIUM LEVEL 8.8 MG/DL (8.3-10.6); CARBON DIOXIDE LEVEL 28 MMOL/L (20-31); CHLORIDE LEVEL 105 MMOL/L (98-107); CREATININE FOR GFR 1.28 MG/DL (0.55-1.30); GLOMERULAR FILTRATION RATE 44.5 (>39); POTASSIUM SERUM 4.7 MMOL/L (3.5-5.1); SODIUM LEVEL 146 MMOL/L (136-145)
[2025-04-25 13:58] LABS: IRON (FE) 84 UG/DL (50-170); PERCENT SATURATION 28.9 % (13.2-45.0)
[2025-04-25 13:59] LABS: FREE T4 0.99 NG/DL (0.89-1.76)
== END ==
LOC: M WUC 10:09
PROVIDERS: ATTEND Nurse Practitioner Adult Health
DX: R06.02 Shortness of breath (principal); I50.9 Heart failure, unspecified; R53.83 Other fatigue; J98.11 Atelectasis

== ENCOUNTER → 2025-08-17 | Outpatient (CLI) | payer MEDICARE, OTHER | LOC: M RAD 10:26 | PROVIDERS: ATTEND Otolaryngology | DX: D11.0 Benign neoplasm of parotid gland (principal) ==

== ENCOUNTER → 2025-08-17 | Outpatient (CLI) | payer MEDICARE, OTHER | LOC: M RAD 10:32 | PROVIDERS: ATTEND General Practice | DX: C88.40 Extranodal marginal zone B-cell lymphoma of mucosa-associated lymphoid tissue [MALT-lymphoma] not having achieved remission (principal); D11.0 Benign neoplasm of parotid gland ==

== ENCOUNTER → 2025-08-21 | Outpatient (CLI) | payer MEDICARE, OTHER | LOC: M ONCR 09:51 | PROVIDERS: ATTEND General Practice | DX: C88.41 Extranodal marginal zone B-cell lymphoma of mucosa-associated lymphoid tissue [MALT-lymphoma], in remission (principal); M48.50XA Collapsed vertebra, not elsewhere classified, site unspecified, initial encounter for fracture; Z13.820 Encounter for screening for osteoporosis; Z92.3 Personal history of irradiation; Z90.2 Acquired absence of lung [part of]; Z87.891 Personal history of nicotine dependence; Z79.891 Long term (current) use of opiate analgesic; Z79.84 Long term (current) use of oral hypoglycemic drugs; Z79.02 Long term (current) use of antithrombotics/antiplatelets; Z79.899 Other long term (current) drug therapy ==